=== PATIENT | female | born 1940 | race Caucasian/White ===

== ENCOUNTER 2020-07-08 08:37 | Outpatient (REF) | payer MEDICARE, SELFPAY ==
[2020-07-08 12:05] LABS: Alanine Aminotransferase 16 U/L (0-31); Albumin Level 4.3 g/dL (3.5-5.0); Alkaline Phosphatase 76 U/L (39-117); Anion Gap 11 (12-20); Aspartate Amino Transferase 19 U/L (5-31); Bilirubin Total 0.4 mg/dL (0.0-1.0); Blood Urea Nitrogen 22 mg/dL (9-16); Calcium 8.9 mg/dL (8.4-10.2); Carbon Dioxide 30 mmol/L (22-29); Chloride 105 mmol/L (96-108); Cholesterol 171 mg/dL; Estimated Glomerular Filt Rate 40; Glucose Fasting 97 mg/dL (60-99); HDL Cholesterol 52 mg/dL; LDL Cholesterol Calculated 87 mg/dl; Potassium 4.1 mmol/l (3.3-5.1); Sodium 142 mmol/L (135-145); Total Protein 6.6 g/dL (6.5-8.0); Triglycerides 164 mg/dL
[2020-07-08 12:09] LABS: Free T4 (Free Thyroxine) 1.09 ng/dL (0.71-1.85); Thyroid Stimulating Hormone 1.17 uIU/mL (0.32-4.0); Vitamin D 25-OH Total 47.1 ng/mL (>30)
== END 2020-07-08 08:38 | disposition home or self-care (01) ==
LOC: HO.HMGCLDS 08:37
PROVIDERS: PCP Internal Medicine; Visit Provider Internal Medicine
DX: I10 Essential (primary) hypertension (principal); E03.9 Hypothyroidism, unspecified; E78.5 Hyperlipidemia, unspecified; I44.2 Atrioventricular block, complete; Z78.0 Asymptomatic menopausal state; Z95.0 Presence of cardiac pacemaker
CPT/HCPCS: 80053; 80061; 82306; 84439; 84443

== ENCOUNTER 2020-11-14 09:02 | Outpatient (REF) | payer MEDICARE, SELFPAY ==
[2020-11-14 11:49] LABS: Alanine Aminotransferase 18 U/L (0-31); Albumin Level 4.2 g/dL (3.5-5.0); Alkaline Phosphatase 72 U/L (39-117); Anion Gap 16 (12-20); Aspartate Amino Transferase 22 U/L (5-31); Bilirubin Total 0.3 mg/dL (0.0-1.0); Blood Urea Nitrogen 20 mg/dL (9-16); Calcium 9.6 mg/dL (8.4-10.2); Carbon Dioxide 28 mmol/L (22-29); Chloride 104 mmol/L (96-108); Cholesterol 164 mg/dL; Estimated Glomerular Filt Rate 39; Glucose Fasting 99 mg/dL (60-99); HDL Cholesterol 62 mg/dL; LDL Cholesterol Calculated 79 mg/dl; Potassium 4.5 mmol/L (3.3-5.1); Sodium 143 mmol/L (135-145); Triglycerides 115 mg/dL
[2020-11-14 12:15] LABS: Free T4 (Free Thyroxine) 1.09 ng/dL (0.71-1.85); Thyroid Stimulating Hormone 0.54 uIU/mL (0.32-4.0); Vitamin D 25-OH Total 44.8 ng/mL (>30)
== END 2020-11-14 09:03 | disposition home or self-care (01) ==
LOC: HO.HMGCLDS 09:02
PROVIDERS: PCP Internal Medicine; Visit Provider Internal Medicine
DX: E03.9 Hypothyroidism, unspecified (principal); I10 Essential (primary) hypertension; E78.5 Hyperlipidemia, unspecified; Z78.0 Asymptomatic menopausal state; Z86.79 Personal history of other diseases of the circulatory system
CPT/HCPCS: 36415; 80053; 80061; 82306; 84439; 84443

== ENCOUNTER → 2020-12-22 12:46 | Outpatient (BNVA) | payer MEDICARE, SELFPAY | PROVIDERS: PCP Internal Medicine; Referring Provider Internal Medicine; Visit Provider Internal Medicine | DX: I45.9 Conduction disorder, unspecified (principal); I10 Essential (primary) hypertension; E78.5 Hyperlipidemia, unspecified; Z79.899 Other long term (current) drug therapy | CPT/HCPCS: 93005; 99212 ==

== ENCOUNTER 2021-02-18 10:45 | Outpatient (REF) | payer MEDICARE, SELFPAY | END 2021-02-18 10:46 | disposition home or self-care (01) | LOC: HO.LAB 10:45 | PROVIDERS: Visit Provider Nurse Practitioner Family | DX: N39.0 Urinary tract infection, site not specified (principal) | CPT/HCPCS: 87086; 87088; 87186 ==

== ENCOUNTER 2021-05-13 08:21 | Outpatient (REF) | payer MEDICARE, SELFPAY ==
[2021-05-13 11:21] LABS: MANUAL DIFF FLAG NO
[2021-05-13 11:30] LABS: Basophils Percent Auto 0.5 % (0-2); Eosinophils Absolute Auto 0.2 X10*3/uL (0.0-0.4); Eosinophils Percent Auto 2.8 % (0-4); Hematocrit 35.3 % (37-47); Hemoglobin 11.7 g/dl (12.0-16.0); Imm Gran Abs Auto 0.01 X10*3/uL (0.00-0.03); Imm Gran Pct Auto 0.2 % (0.0-0.4); Lymphocytes Absolute Auto 1.9 X10*3/uL (1.2-4.9); Lymphocytes Percent Auto 31.4 % (20-40); Mean Corpuscular HGB Conc 33.1 g/dl (31.0-35.0); Mean Corpuscular Hemoglobin 31.2 pg (27.0-33.0); Mean Corpuscular Volume 94.1 fL (80-98); Mean Platelet Volume 10.8 fL (9.4-12.3); Monocytes Absolute Auto 0.8 X10*3/uL (0.1-1.2); Monocytes Percent Auto 13.6 % (2-11); Neutrophils Absolute Auto 3.2 X10*3/uL (2.0-8.3); Neutrophils Percent Auto 51.5 % (45-73); Platelet Count 318 X10*3/uL (160-400); Red Blood Count 3.75 X10*6/uL (4.20-5.50); Red Cell Distribution Width 13.1 % (11.0-16.0); White Blood Count 6.1 X10*3/uL (4.8-10.8)
[2021-05-13 11:48] LABS: Alanine Aminotransferase 19 U/L (0-31); Anion Gap 13 (12-20); Aspartate Amino Transferase 20 U/L (5-31); Blood Urea Nitrogen 30 mg/dL (9-16); Calcium 9.2 mg/dL (8.4-10.2); Carbon Dioxide 25 mmol/L (22-29); Chloride 106 mmol/L (96-108); Cholesterol 161 mg/dL; Estimated Glomerular Filt Rate 38; Glucose Fasting 102 mg/dL (60-99); HDL Cholesterol 56 mg/dL; LDL Cholesterol Calculated 86 mg/dl; Sodium 140 mmol/L (135-145); Triglycerides 95 mg/dL
[2021-05-13 12:11] LABS: Free T4 (Free Thyroxine) 1.16 ng/dL (0.71-1.85); Thyroid Stimulating Hormone 0.44 uIU/mL (0.32-4.0); Vitamin D 25-OH Total 48.9 ng/mL (>30)
== END 2021-05-13 08:22 | disposition home or self-care (01) ==
LOC: HO.HMGCLDS 08:21
PROVIDERS: PCP Internal Medicine; Visit Provider Internal Medicine
DX: I12.9 Hypertensive chronic kidney disease with stage 1 through stage 4 chronic kidney disease, or unspecified chronic kidney disease (principal); N18.9 Chronic kidney disease, unspecified; E03.9 Hypothyroidism, unspecified; E78.5 Hyperlipidemia, unspecified; Z78.0 Asymptomatic menopausal state
CPT/HCPCS: 36415; 80048; 80061; 82306; 84439; 84443; 84450; 84460; 85025

== ENCOUNTER 2021-05-20 11:43 | Outpatient (REF) | payer MEDICARE, SELFPAY ==
[2021-05-20 14:11] LABS: Iron 107 mcg/dL (30-160); Percent Iron Saturation 34 % (15-50); Total Iron Binding Capacity 313 mcg/dL (228-428); Unsaturated Iron Binding 206 ug/dL
[2021-05-20 15:32] LABS: Ferritin 101 ng/mL (10-250)
== END 2021-05-20 11:44 | disposition home or self-care (01) ==
LOC: HO.HMGCLDS 11:43
PROVIDERS: PCP Internal Medicine; Visit Provider Internal Medicine
DX: D64.9 Anemia, unspecified (principal)
CPT/HCPCS: 36415; 82728; 83540

== ENCOUNTER 2021-05-26 | Outpatient (REF) | payer MEDICARE, SELFPAY ==
[2021-05-27 14:14] LABS: FIT Int Ctl YES; FIT1 NEGATIVE (NEGATIVE); FIT2 NEGATIVE (NEGATIVE)
== END 2021-05-26 00:01 | disposition home or self-care (01) ==
LOC: HO.LNP
PROVIDERS: Visit Provider Internal Medicine
DX: Z12.11 Encounter for screening for malignant neoplasm of colon (principal); Z12.12 Encounter for screening for malignant neoplasm of rectum; D64.9 Anemia, unspecified
CPT/HCPCS: 82274

== ENCOUNTER 2021-11-13 12:41 | Outpatient (REF) | payer MEDICARE, SELFPAY ==
[2021-11-13 14:05] LABS: MANUAL DIFF FLAG NO
[2021-11-13 14:14] LABS: Basophils Absolute Auto 0.1 X10*3/uL (0.0-0.2); Basophils Percent Auto 0.6 % (0-2); Eosinophils Absolute Auto 0.2 X10*3/uL (0.0-0.4); Eosinophils Percent Auto 1.6 % (0-4); Hematocrit 39.4 % (37.0-47.0); Hemoglobin 12.6 g/dl (12.0-16.0); Imm Gran Abs Auto 0.03 X10*3/uL (0.00-0.03); Imm Gran Pct Auto 0.3 % (0.0-0.4); Lymphocytes Absolute Auto 2.1 X10*3/uL (1.2-4.9); Lymphocytes Percent Auto 22.3 % (20-40); Mean Corpuscular Hemoglobin 30.5 pg (27.0-33.0); Mean Corpuscular Volume 95.4 fL (80.0-98.0); Mean Platelet Volume 10.4 fL (9.4-12.3); Monocytes Absolute Auto 1.1 X10*3/uL (0.1-1.2); Monocytes Percent Auto 12.2 % (2-11); Neutrophils Absolute Auto 5.9 x10*3/uL (2.0-8.3); Platelet Count 324 X10*3/uL (160-400); Red Blood Count 4.13 X10*6/uL (4.20-5.50); Red Cell Distribution Width 12.9 % (11.0-16.0); White Blood Count 9.3 X10*3/uL (4.8-10.8)
[2021-11-13 14:46] LABS: Anion Gap 16 (12-20); Blood Urea Nitrogen 28 mg/dL (9-16); Calcium 9.9 mg/dL (8.4-10.2); Carbon Dioxide 26 mmol/L (22-29); Chloride 104 mmol/L (96-108); Estimated Glomerular Filt Rate 38; Glucose Random 113 mg/dL (60-115); Potassium 4.7 mmol/L (3.3-5.1); Sodium 141 mmol/L (135-145)
[2021-11-13 15:10] LABS: TSH reflex Free T4 0.51 uIU/mL (0.32-4.0)
== END 2021-11-13 12:42 | disposition home or self-care (01) ==
LOC: HO.LAB 12:41
PROVIDERS: PCP Internal Medicine; Referring Provider Internal Medicine; Visit Provider Nurse Practitioner Family
DX: I48.0 Paroxysmal atrial fibrillation (principal); I10 Essential (primary) hypertension; Z86.79 Personal history of other diseases of the circulatory system; Z95.0 Presence of cardiac pacemaker
CPT/HCPCS: 36415; 80048; 84443; 85025; 99212

== ENCOUNTER → 2021-12-09 14:54 | Outpatient (REF) | payer MEDICARE, SELFPAY ==
--- NOTE | 2021-12-09 14:56 | CA_ITS ---
Transthoracic Echocardiogram Patient (Last, First, Middle): Mita Zapien T Gender: Female Date of : 1940 Age: 81 Procedure Date: 12/09/2021 Procedure Type: Transthoracic Echocardiogram Location: OP Height: 157.48 cm Weight: 106.6 kg BSA: 2.05 m2 Heart Rate: bpm BP: 140 / 70 mmHg Supervisor Taping: YR/TO Referring MD: Debora Morgan ANALYTICAL MANAGER-[employer] Machine Operator: Cruz Burdick MD Symptoms: I48.0 - Paroxysmal atrial fibrillation Study Quality: Fair ECG Rhythm: Ventriculary paced rhythm Conclusions: - 1. Normal LV systolic function with impaired relaxation filling pattern 2. Mildly dilated left atrium 3. Trivial aortic regurgitation 4. Normal RV systolic pressure 5. No gross pericardial effusion Findings Left Ventricle Normal left ventricular size, thickness, and systolic function. The visually estimated ejection fraction is between 60-65%. There is paradoxical septal motion consistent with a right ventricular pacemaker. Spectral Doppler is indicative of an impaired relaxation filling pattern. E/E prime ratio is between 8 and 15 consistent with indeterminate filling pressures. Right Ventricle Normal right ventricular cavity size and systolic function. Atria The left atrium is mildly dilated. There is no evidence of interatrial shunt. The right atrium is normal in size. Aortic Valve The aortic valve was not well visualized. There is no aortic valve stenosis. There is trace (trivial) aortic valve regurgitation. Mitral Valve There is mild anterior and posterior mitral leaflet thickening. There is trace mitral valve regurgitation. There is no mitral valve stenosis. Pulmonic Valve The pulmonic valve is likely normal. There is trace to mild pulmonic valve regurgitation. Tricuspid Valve There is mild tricuspid valve regurgitation. The right ventricular systolic pressure is normal. Normal right atrial pressure. There is no evidence of pulmonary hypertension. Great Vessels All visible segments of the aorta are normal in size. The pulmonary artery was not well visualized. Venous The inferior vena cava is normal in size and collapses greater than 50% with inspiration. Pericardium/Pleural There is no evidence of pericardial effusion. Measurements 2D Linear Measurements IVSd: 0.98 0.6-0.9/0.6-1.0 cm LVIDd: 4.82 3.9-5.3/4.2-5.9 cm LVIDd Index: 2.35 2.4-3.2/2.2-3.1 cm/m2 LVIDs: 2.84 2.0-3.6 cm LVPWd: 0.93 0.7-1.1 cm LA Diam: 3.70 2.7-3.8/3.0-4.0 cm LAIDs Index: 1.80 1.5-2.3 cm/m2 LV Mass: 199.85 67-162/88-224 g LV Mass Index: 97.49 43-95/49-115 g/m2 LVOT Diam: 2.00 3.0+(-)1.3 cm 2D Systolic Function EF 4C: 64.50 >55% EF 2C: 69.50 >55% EF BiP: 66.00 >55% Mitral Valve MV Pk E: 0.68 MV PK A: 0.86 MV Decel Time: 232.00 E/A: 0.80 E'Lateral: 7.72 E'Medial: 5.87 E/E' Med: 11.60 E/E' Lat: 8.80 PHT: 68.00 MVA PHT: 3.24 Decel Terry: 2.94 Aortic Valve AoV Pk Lauri: 2.11 AoV Mn Lauri: 1.37 AoV VTI: 0.49 AoV Pk Grad: 18.00 Aov Mn Grad: 9.00 NINFA Cont.VTI: 1.72 LVOT LVOT Pk Lauri: 1.05 LVOT Mn Lauri: 0.77 LVOT VTI: 0.27 LVOT Pk Grad: 4.00 LVOT Mn Grad: 3.00 LVOT Diam: 2.00 LVOT Area: 3.14 Diastolic Function MV Pk E: 0.68 MV Pk A: 0.86 E/A: 0.80 E'Medial: 5.87 E/E' Med: 11.60 E' Laterial: 7.72 E/E' Lat: 8.80 Right Ventricle TAPSE (mm): 20.70 TVS' Lauri: 9.03 Tricuspid Valve TR Pk Lauri: 2.87 TR Pk Grad: 33.00 RA Press: 3.00 RVSP: 36.00 Great Vessels Aorta Sinus of Valsalva: 3.05 2.0-3.[address] [place]: 2.77 1.7-3.4 cm Ao Asc: 3.50 2.1-3.4 cm Updated in Other Vendor System with Status of Final Cruz Burdick MD electronically signed on 12/10/2021 12:18:57 PM with status of Final
== END ==
LOC: HO.CARD 14:54
PROVIDERS: PCP Internal Medicine; Visit Provider Nurse Practitioner Family
DX: I48.0 Paroxysmal atrial fibrillation (principal)
CPT/HCPCS: 93306

== ENCOUNTER → 2021-12-21 12:36 | Outpatient (BNVA) | payer MEDICARE, SELFPAY | PROVIDERS: PCP Internal Medicine; Referring Provider Internal Medicine; Visit Provider Internal Medicine | DX: Z45.018 Encounter for adjustment and management of other part of cardiac pacemaker (principal); I45.9 Conduction disorder, unspecified; I48.0 Paroxysmal atrial fibrillation; I10 Essential (primary) hypertension; E78.5 Hyperlipidemia, unspecified | CPT/HCPCS: 93005; 93280; 99212 ==

== ENCOUNTER 2022-03-07 17:19 | Emergency (ER) | payer MEDICARE, SELFPAY ==
[2022-03-07 17:52] VITALS: BP 188/72; PULSE 73; RESP 15; TEMP 36.9; O2SAT 97; BMI 43.9
== END 2022-03-07 19:31 | disposition left against medical advice (07) ==
PROVIDERS: Emergency Provider Emergency Medicine; PCP Internal Medicine
DX: M79.671 Pain in right foot (principal)
CPT/HCPCS: 99281; 99282

== ENCOUNTER 2022-06-21 09:13 | Outpatient (REF) | payer MEDICARE, SELFPAY ==
[2022-06-21 12:05] LABS: Alanine Aminotransferase 16 U/L (0-31); Anion Gap 13 (12-20); Aspartate Amino Transferase 21 U/L (5-31); Blood Urea Nitrogen 26 mg/dL (9-16); Calcium 9.7 mg/dL (8.4-10.2); Carbon Dioxide 30 mmol/L (22-29); Chloride 104 mmol/L (96-108); Cholesterol 166 mg/dL; Estimated Glomerular Filt Rate 37; Glucose Fasting 105 mg/dL (60-99); HDL Cholesterol 56 mg/dL; LDL Cholesterol Calculated 87 mg/dl; Potassium 4.3 mmol/L (3.3-5.1); Sodium 143 mmol/L (135-145); Triglycerides 118 mg/dL
[2022-06-21 12:29] LABS: Free T4 (Free Thyroxine) 1.19 ng/dL (0.71-1.85); Thyroid Stimulating Hormone 0.84 uIU/mL (0.32-4.0); Vitamin D 25-OH Total 57.9 ng/mL (>30)
== END 2022-06-21 09:14 | disposition home or self-care (01) ==
LOC: HO.HMGCLDS 09:13
PROVIDERS: PCP Internal Medicine; Visit Provider Internal Medicine
DX: E03.9 Hypothyroidism, unspecified (principal); E78.5 Hyperlipidemia, unspecified; I12.9 Hypertensive chronic kidney disease with stage 1 through stage 4 chronic kidney disease, or unspecified chronic kidney disease; N18.9 Chronic kidney disease, unspecified
CPT/HCPCS: 36415; 80048; 80061; 82306; 84439; 84443; 84450; 84460

== ENCOUNTER → 2022-12-20 12:19 | Outpatient (BNVA) | payer MEDICARE, SELFPAY | PROVIDERS: PCP Internal Medicine; Referring Provider Internal Medicine; Visit Provider Internal Medicine | DX: Z45.018 Encounter for adjustment and management of other part of cardiac pacemaker (principal); I48.0 Paroxysmal atrial fibrillation; I45.9 Conduction disorder, unspecified; I10 Essential (primary) hypertension; E78.5 Hyperlipidemia, unspecified | CPT/HCPCS: 93005; 93280; 99212 ==

== ENCOUNTER → 2023-01-07 13:59 | Outpatient (BNVA) | payer MEDICARE, SELFPAY | PROVIDERS: PCP Internal Medicine; Visit Provider Internal Medicine ==

== ENCOUNTER → 2023-05-03 23:59 | Outpatient (BNV) | payer MEDICARE, SELFPAY ==
--- NOTE | 2023-05-07 14:21 | MHC.OFFVIS ---
Intake Intake Visit Reasons: Remote Device Check- [facility] Allergies amlodipine [From NORVASC] Allergy (Unknown, Verified 12/20/22 12:43) UNK amoxicillin [AMOXICILLIN] Allergy (Unknown, Verified 12/20/22 12:43) RASH, hives, rash latex [LATEX] Allergy (Unknown, Verified 12/20/22 12:43) RASH lisinopril Adverse Reaction (Unknown, Verified 12/20/22 12:43) cough Minoxidil Adverse Reaction (Unknown, Uncoded 12/20/22 12:43) hair growth [facility] Medical History (Updated 06/29/22 @ 01:33 by Shirlene Clark MD) History of gout Impaired fasting glucose Anemia CKD (chronic kidney disease) Acquired hypothyroidism History of complete heart block Essential hypertension Dyslipidemia Surgical History S/P placement of cardiac pacemaker Family History Father Substance use disorder Mother No problems noted. Social History (Updated 12/20/22 @ 12:44 by Fatemeh Cassidy) Housing: Apartment Alcohol intake: current Alcohol intake frequency: holidays/special occasions only Alcohol type: wine Patient Tobacco Use Status: Never used Tobacco e-Cigarette/Vaping Use: Never Used Current occupational status: retired Cognitive needs: No Hearing needs: No Vision needs: No Office Procedures Cardiac Device Check Cardiac Device Check Details: Date of service- 05/03/2023 ; Battery life >6 years; normal lead parameters; AP 78%; DIRECTOR PARK >99%; no significant arrhythmias. Overall normal device function. [id number] Cardiac Device Interrogation, pacemaker Procedure code (CPT) selection complete Assessment & Plan Assessment & Plan (1) Paroxysmal atrial fibrillation: Code(s): I48.0 - Paroxysmal atrial fibrillation (2) History of complete heart block: Code(s): Z86.79 - Personal history of other diseases of the circulatory system Coding Level of Care Code Procedure Only Diagnoses Paroxysmal atrial fibrillation I48.0 History of complete heart block Z86.79 CPT Codes Cardiac Device Check - Cardiac Device 12: [id number] Cardiac Device Interrogation, pacemaker ([id number])
== END ==
PROVIDERS: PCP Internal Medicine; Visit Provider Internal Medicine
DX: I48.0 Paroxysmal atrial fibrillation (principal); Z95.0 Presence of cardiac pacemaker
CPT/HCPCS: 93294

== ENCOUNTER 2023-06-15 09:14 | Outpatient (REF) | payer MEDICARE, SELFPAY ==
[2023-06-15 11:31] LABS: MANUAL DIFF FLAG NO
[2023-06-15 11:37] LABS: Basophils Absolute Auto 0.1 X10*3/uL (0.0-0.2); Basophils Percent Auto 0.7 % (0-2); Eosinophils Absolute Auto 0.4 X10*3/uL (0.0-0.4); Hematocrit 39.6 % (37.0-47.0); Hemoglobin 12.9 g/dl (12.0-16.0); Imm Gran Abs Auto 0.01 X10*3/uL (0.00-0.03); Imm Gran Pct Auto 0.1 % (0.0-0.4); Lymphocytes Absolute Auto 1.7 X10*3/uL (1.2-4.9); Lymphocytes Percent Auto 23.9 % (20-40); Mean Corpuscular HGB Conc 32.6 g/dl (31.0-35.0); Mean Corpuscular Volume 95.2 fL (80.0-98.0); Monocytes Percent Auto 13.9 % (2-11); Neutrophils Absolute Auto 4.1 x10*3/uL (2.0-8.3); Neutrophils Percent Auto 56.4 % (45-73); Platelet Count 323 X10*3/uL (160-400); Red Blood Count 4.16 X10*6/uL (4.20-5.50); Red Cell Distribution Width 13.2 % (11.0-16.0); White Blood Count 7.2 X10*3/uL (4.8-10.8)
[2023-06-15 12:49] LABS: Alanine Aminotransferase 18 U/L (0-31); Anion Gap 14 (12-20); Aspartate Amino Transferase 22 U/L (5-31); Blood Urea Nitrogen 24 mg/dL (9-16); Calcium 9.8 mg/dL (8.4-10.2); Carbon Dioxide 25 mmol/L (22-29); Chloride 106 mmol/L (96-108); Cholesterol 174 mg/dL (<200); Estimated Glomerular Filt Rate 43; Glucose Fasting 107 mg/dL (60-99); HDL Cholesterol 51 mg/dL (>40); LDL Cholesterol Calculated 94 mg/dL (<100); Potassium 3.8 mmol/L (3.3-5.1); Sodium 141 mmol/L (135-145); Triglycerides 146 mg/dL (<150); Uric Acid 7.8 mg/dL (2.4-5.7)
[2023-06-15 12:50] LABS: Free T4 (Free Thyroxine) 0.97 ng/dL (0.71-1.85); Thyroid Stimulating Hormone 1.57 uIU/mL (0.32-4.0); Vitamin D 25-OH Total 75.6 ng/mL (>30)
== END 2023-06-15 09:15 | disposition home or self-care (01) ==
LOC: HO.HMGCLDS 09:14
PROVIDERS: PCP Internal Medicine; Visit Provider Internal Medicine
DX: I12.9 Hypertensive chronic kidney disease with stage 1 through stage 4 chronic kidney disease, or unspecified chronic kidney disease (principal); N18.9 Chronic kidney disease, unspecified; I48.0 Paroxysmal atrial fibrillation; M10.9 Gout, unspecified; R73.01 Impaired fasting glucose; D64.9 Anemia, unspecified; E78.5 Hyperlipidemia, unspecified
CPT/HCPCS: 36415; 80048; 80061; 82306; 84439; 84443; 84450; 84460; 84550; 85025

== ENCOUNTER 2023-06-15 09:30 | Outpatient (AMB) | payer MEDICARE, SELFPAY ==
[2023-06-15 09:59] VITALS: BP 130/70; PULSE 73; TEMP 36.6; O2SAT 98; BMI 41.2
--- NOTE | 2023-06-15 09:59 | MHC.OFFWIV ---
Intake Vital Signs 06/15/23 09:59 Height 5 ft 2 in Weight 225 lb 4 oz BMI 41.2 BP 130/70 Blood Pressure Location Lt brachial Position Sitting Pulse 73 Pulse Source Pulse Oximeter Temp 97.9 F Temp Source Temporal Artery Scan Pulse Oximetry (%) 98 Oxygen Delivery Method Room Air Intake Visit Reasons: EST/headaches post sinus infection(lobby) Intake Note: pt is here for c/o headaches post infection Patient Tobacco Use Status: Never used Tobacco Allergies amlodipine [From NORVASC] Allergy (Unknown, Verified 06/15/23 10:47) UNK amoxicillin [AMOXICILLIN] Allergy (Unknown, Verified 06/15/23 10:47) RASH, hives, rash latex [LATEX] Allergy (Unknown, Verified 06/15/23 10:47) RASH lisinopril Adverse Reaction (Unknown, Verified 06/15/23 10:47) cough Minoxidil Adverse Reaction (Unknown, Uncoded 12/20/22 12:43) hair growth Medication List - Last Reconciled 06/15/23 by Bev Mejia, 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- apixaban (Eliquis) 5 mg PO BID 90 days atenolol 100 mg PO DAILY cholecalciferol (vitamin D3) 50 mcg PO DAILY furosemide 40 mg PO DAILY levothyroxine 88 mcg PO QAM loratadine (Claritin) 10 mg PO DAILY PRN pysfmxph-tpd-fmxq-FA-vit K-lut 8 mg iron-400 mcg-50 mcg (Centrum Silver Women) 1 tab PO DAILY simvastatin 40 mg PO QPM valsartan 320 mg PO DAILY vitamins A,C,A-qess-esujrf 4,296 mcg-226 mg-90 mg (PreserVision AREDS) 1 cap PO BID Do you need a note to return to daycare/school/sports/work: Yes HPI HPI Comments History of Present Illness Details HERE TODAY W C/O FRONTAL THROBBING HEADACHE THAT STARTED 06/08/23. REPORTS URI SX 2 WEEKS AGO THAT RESOLVED W/O INTERVENTION. THEN 06/08/23 WHILE WATCHING TV SHE SAW SQUIGGLY LINES IN HER VISION. SHE CLOSED HER EYES AND THIS RESOLVED THE ISSUE WITHIN SECONDS. HOWEVER THIS IS WHEN SHE DEVELOPED A FRONTAL HEADACHE. THIS ONLY LAST A SHORT TIME. THIS SIMILIAR THING HAPPENED AGAIN 06/10, 06/11 AND 06/12. SHE HAS USED APAP TO TX THE HEADACHE W + RELIEF. REPORTS NASAL CONGESTION, THICK PURULENT DRAINAGE. DENIES FEVER, CHILLS, VISUAL LOSS, SOB, CHEST PAIN. SHE DID CALL HER [facility] GIVEN THE VISUAL COMPLAINTS. LAST EYE EXAM 05/24/23. [facility] ADVISED TO COME TO URGENT CARE FIRST AND FU WITH HER AFTER. DENIES RED FLAG NEURO SX. TODAY SHE IS FEELING FINE W/O HEADACHE OR VISUAL DISTURBANCES. [facility] Medical History (Updated 06/15/23 @ 10:47 by Bev Mejia, [facility]) History of gout Impaired fasting glucose Anemia CKD (chronic kidney disease) Acquired hypothyroidism History of complete heart block Essential hypertension Dyslipidemia Surgical History S/P placement of cardiac pacemaker Family History Father Substance use disorder Mother No problems noted. Social History (Updated 12/20/22 @ 12:44 by Fatemeh Cassidy) Housing: Apartment Alcohol intake: current Alcohol intake frequency: holidays/special occasions only Alcohol type: wine Patient Tobacco Use Status: Never used Tobacco e-Cigarette/Vaping Use: Never Used Current occupational status: retired Cognitive needs: No Hearing needs: No Vision needs: No Review of Systems Const All systems reviewed & are unremarkable except as noted in HPI and below Physical Exam Vital Signs: Last Vital Signs Temp 97.9 F 06/15/23 09:59 Pulse 73 06/15/23 09:59 BP 130/70 06/15/23 09:59 Pulse Ox 98 06/15/23 09:59 Oxygen Delivery Method Room Air 06/15/23 09:59 BMI result Body Mass Index 41.2 Const Other: AWAKE, ALERT, ORIENTED, NAD ATRAUMATIC, NORMOCEPHALIC PERRLA, EOMI. NO PHOTOPHOBIA. WEARING GLASSES. TM INTACT AND CLEAR ON LEFT. UNABLE TO SEE TM ON R DUE TO NONOBS CERUMEN IN EAC TURBINATES PALE, EDEMATOUS WITH SCANT MUCOID DISCHARGE. SINUSES NONTENDER TO PALP PHARYNX PINK. + PND. NO EXUDATE. NECK FULL ROM. IRREGULARLY IRREGULAR RYTHYM LS CTAB NEURO EXAM GROSSLY INTACT Assessment & Plan Assessment & Plan (1) Sinusitis: Code(s): J32.9 - Chronic sinusitis, unspecified Plan: WILL TX TODAY FOR SUSPECTED SINUSITIS USING DOXY GIVEN HER PCN ALLERGY & USE OF ELIQUIS. SHE SHOULD TAKE DIRECTED. I HAVE ADVISED HER TO CALL [facility] AFTER THIS APPT TO UPDATE AND ENCOURAGED APPT IF [facility] THOUGHT NECESSARY I CANNOT DIRECTLY CORRELATE HER VISUAL SX WITH HER SINUSITIS. EDU ON RED FLAG NEURO SX TO MONITOR FOR AND ENCOURAGED TO SEEK ED LEVEL OF CARE PRN. (2) Visual aura: Code(s): H53.9 - Unspecified visual disturbance Medications: New doxycycline hyclate 100 mg PO BID 7 days 14 caps 0RF Coding Level of Care Code Est Pt Level 4 (99907) Diagnoses Sinusitis J32.9 Visual aura H53.9
== END 2023-06-15 11:35 | disposition home or self-care (01) ==
PROVIDERS: PCP Internal Medicine; Visit Provider Nurse Practitioner Family
DX: J32.9 Chronic sinusitis, unspecified (principal); H53.9 Unspecified visual disturbance
CPT/HCPCS: 99214

== ENCOUNTER 2023-07-04 12:11 | Outpatient (AMB) | payer MEDICARE, SELFPAY ==
[2023-07-04 12:21] VITALS: BP 130/72; PULSE 78; O2SAT 98; BMI 41.1
--- NOTE | 2023-07-04 12:21 | A.OFFPC_ITS ---
<Statement entered by Shirlene Clark MD - 12/26/24 15:24> This note has been administratively?closed. 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 Required: No Accompanied by: Self / Same As Patient Allergies amlodipine [From NORVASC] Allergy (Unknown, Verified 07/04/23 12:46) UNK amoxicillin [AMOXICILLIN] Allergy (Unknown, Verified 07/04/23 12:46) RASH, hives, rash latex [LATEX] Allergy (Unknown, Verified 07/04/23 12:46) RASH lisinopril Adverse Reaction (Unknown, Verified 07/04/23 12:46) cough Minoxidil Adverse Reaction (Unknown, Uncoded 07/04/23 12:46) hair growth Medication List - Last Reconciled 07/04/23 by Shirlene Clark MD apixaban (Eliquis) 5 mg PO BID 90 days atenolol 100 mg PO DAILY cholecalciferol (vitamin D3) 50 mcg PO DAILY furosemide 40 mg PO DAILY levothyroxine 88 mcg PO QAM loratadine (Claritin) 10 mg PO DAILY PRN qsxwncwo-adq-zkqe-FA-vit K-lut 8 mg iron-400 mcg-50 mcg (Centrum Silver Women) 1 tab PO DAILY simvastatin 40 mg PO QPM valsartan 320 mg PO DAILY vitamins A,C,J-onvv-jadgln 4,296 mcg-226 mg-90 mg (PreserVision AREDS) 1 cap PO BID Tobacco use date assessed: 07/04/23 Fall risk assessment: 1 Fall in past year Last assessed Fall Risk: 07/04/23 Dental Screening Dental Screen Date: 07/04/23 Did you have a dental visit in the last 12 months?: No Did you have a dental problem in the last 6 months where you did not have access to dental care?: No Was dental information given to patient?: Yes PFSH Medical History (Updated 07/04/23 @ 13:15 by Shirlene Clark MD) COVID-19 vaccination refused History of gout Impaired fasting glucose Anemia CKD (chronic kidney disease) Acquired hypothyroidism History of complete heart block Essential hypertension Dyslipidemia Surgical History S/P placement of cardiac pacemaker Family History Father Substance use disorder Mother No problems noted. Social History Housing: Apartment Alcohol intake: current Alcohol intake frequency: holidays/special occasions only Alcohol type: wine Patient Tobacco Use Status: Never used Tobacco e-Cigarette/Vaping Use: Never Used Current occupational status: retired Cognitive needs: No Hearing needs: No Vision needs: No Questionnaire PHQ-9 Over the last 2 weeks, how often have you been bothered by any of the following problems? 1. Little interest or pleasure in doing things: not at all 2. Feeling down, depressed, or hopeless: not at all 3. Trouble falling or staying asleep, or sleeping too much: not at all 4. Feeling tired or having little energy: not at all 5. Poor appetite or overeating: not at all 6. Feeling bad about yourself - or that you are a failure or have let yourself or your family down: not at all 7. Trouble concentrating on things, such as reading the newspaper or watching television: not at all 8. Moving or speaking so slowly that other people could have noticed. Or the opposite - being so fidgety or restless that you have been moving around a lot more than usual: not at all 9. Thoughts that you would be better off or of hurting yourself in some way: not at all Total score: 0 Depression Screening Interpretation: Negative Depression Screening Done: Yes 85063 - PHQ-9 Billing: Yes Source: Developed by Drs. Bennie Stock, Sherri Joshua, Vitaliy Vu and colleagues, with an educational casper from [employer]. Thrive Questionnaire Date Thrive assessed: 07/04/23 I am a: Patient What is your living situation today?: I have a steady place to live Within the past 12 months, did the food you bought not last and you didn't have the money to get more?: Never true Within the past 12 months, did you worry whether your food would run out before you got money to buy more?: Never true Do you have trouble paying for medicines?: No Do you have trouble getting transportation to medical appointments?: No Do you have trouble paying your heating and electricity bill?: No Do you have trouble taking care of your child, family member or friend?: No Do you have trouble with day-to-day activities such as bathing, preparing meals, shopping, managing finances, etc.?: No Are you currently unemployed and looking for a job?: No Are you interested in more education?: No Please select the resources that you would like help with: None Currently or been in a relationship where the following occur: no concerns reported MURRAY-7 AMB Questionnaire MURRAY-7 Date MURRAY - 7 assessed: 07/04/23 Feeling nervous, anxious, or on edge: 0 = Not at all Not being able to stop or control worryin = Not at all Worrying too much about different things: 0 = Not at all Trouble relaxin = Not at all Being so restless that it is hard to sit still: 0 = Not at all Becoming easily annoyed or irritable: 0 = Not at all Feeling afraid as if something awful might happen: 0 = Not at all Total MURRAY-7 score (0-4 normal; 5-9 mild; 10-14 moderate; 15-21 severe): 0 Source: Developed by Drs. Bennie Stock, Sherri Joshua, Vitaliy Vu and colleagues, with an educational casper from [employer]. MURRAY-7 Assessment Billing MURRAY-7 Assessment Tool: MURRAY-7 Assessment 46315 Review of Systems Eyes Details: sees [facility] Physical exam (Primary Care) Vital Signs: Last Vital Signs Pulse 78 07/04/23 12:21 BP 130/72 07/04/23 12:21 Pulse Ox 98 07/04/23 12:21 Oxygen Delivery Method Room Air 07/04/23 12:21 BMI result Body Mass Index 41.1 Tobacco/Smoking Status: Tobacco use Status Tobacco use date assessed 07/04/23 07/04/23 12:23 Patient Tobacco Use Status Never used Tobacco 07/04/23 12:23 e-Cigarette/Vaping Use Never Used 07/04/23 12:23 PHQ-9: PHQ-9 Score PHQ-9: Total score 0 07/04/23 12:29 Depression Screening Interpretation: Negative Thrive Assessment: Date of Thrive Assessment Date Thrive assessed 07/04/23 07/04/23 12:29 Currently or been in a relationship where the following occur: no concerns reported Const General: comfortable, no acute distress, alert and awake Orientation/consciousness: patient oriented x3 HENMT Head: Yes atraumatic Ears: hearing grossly normal bilaterally, TM's normal bilaterally and EAC's normal General nose exam: Normal external nose present and No nasal discharge present Eyes General: appearance normal, both eyes and all related structures Neck Other: Nonpalpable thyroid gland Neck: Yes full ROM, Yes no lymphadenopathy and Yes supple Resp Effort & Inspection: normal respiratory effort and able to speak in complete sentences Auscultation: clear to auscultation bilaterally Cardio Other: S1 and S2 present regular rate and rhythm GI Other: Normal bowel sounds, soft, nontender, no mass palpated General: Yes no CVA tenderness Back/Spine/Pelvis Back: no CVA tenderness and No back tenderness Skin General skin exam: no rashes or lesions noted Neuro General: patient oriented x3, gait normal, tone normal, moves all extremities, Normal light touch and pain sensation, no focal motor deficits and CN's II-XI intact bilaterally Extrem General: Yes full ROM, Yes no joint enlargement, Yes no clubbing, cyanosis or edema, Yes no calf tenderness and Yes normal gait Psych Appearance: grossly normal Mental Status: mental status grossly normal Speech and movement: Normal speech and movement present Affect: normal affect Attitude: cooperative Results Reviewed Results Reviewed: Name: Mita Zapien Age/Sex: 83/F [facility] 1940 [id number] [id number] Attend Dr: Shirlene Clark MD Re06/15/23 Status: DEP [facility] Disch: SPEC : [id number] MAREN: 06/15/23 STATUS: COMP REQ : [id number] RECD: 06/15/[address]: Shirlene Clark MD COMP: 06/15/23 ENTERED: 06/15/[address]: ORDERED: CBC Auto Diff Test Result Flag Reference Site WBC 7.2 4.8-10.8 X10*3/uL RBC 4.16 L 4.20-5.50 X10*6/uL HGB 12.9 12.0-16.0 g/dl HCT 39.6 37.0-47.0 % MCV 95.2 80.0-98.0 fL MCH 31.0 27.0-33.0 pg MCHC 32.6 31.0-35.0 g/dl RDW 13.2 11.0-16.0 % PLT 323 160-400 X10*3/uL Name: Mita Zapien Age/Sex: 83/F : 1940 Unit#: [id number] Attend Dr: Shirlene Clark MD Re06/15/23 Status: DEP REF Location: [facility] Disch: SPEC : [id number] MAREN: 06/15/23 STATUS: COMP REQ : [id number] RECD: 06/15/[address]: Shirlene Clark MD COMP: 06/15/23 ENTERED: 06/15/[address]: ORDERED: Met Prof Fast, Uric, AST, ALT, Lipid Panel, Vitamin D 25-OH, Free T4, TS Test Result Flag Reference Site Sodium 141 135-145 mmol/L Potassium 3.8 3.3-5.1 mmol/L CL 106 96-108 mmol/L CO2 25 22-29 mmol/L Gap 14 12-20 BUN 24 H 9-16 mg/dL Creat 1.19 0.5-1.4 mg/dL EGFR 43 NOTE: For -[place] individuals, multiply the result by 1.210. Chronic Kidney Disease: Estimated GFR < 60 mL/min/1.73m2 Severe Kidney Disease: Estimated GFR < 15 mL/min/1.73m2 FBS 107 H 60-99 mg/dL A fasting glucose from 100-125 mg/dl is considered impaired (pre-diabetes). Uric Acid 7.8 H 2.4-5.7 mg/dL CA 9.8 8.4-10.2 mg/dL AST (GOT) 22 5-31 U/L ALT (GPT) 18 0-31 U/L Triglyceride 146 <150 mg/dL Desirable Triglyceride: less than 150 mg/dL Borderline High Triglyceride 150-199 mg/dL High Triglyceride: 200-499 mg/dL Very High Triglyceride: greater than or equal to 5OO mg/dL Cholesterol 174 <200 mg/dL Desirable Cholesterol: less than 200 mg/dL Borderline High Cholesterol: 200-239 mg/dL High Cholesterol: greater than 239 mg/dL LDL Calculated 94 <100 mg/dL Desirable LDL: less than 100 mg/dL Near Optimal/Above Optimal LDL: 110-129 mg/dL Borderline High LDL: 130-159 mg/dL High LDL: 160-189 mg/dL Very High LDL: greater than or equal to 190 mg/dL HDL 51 >40 mg/dL Desirable HDL: greater than 40 mg/dL Note: This HDL assay may give artificially low results in patients with liver disease. Vit D 25-OH Tot 75.6 >30 ng/mL Health Based Reference Values* < 20 ng/mL Deficient 20-30 ng/mL Insufficient > 30 ng/mL Sufficient *Rachna STEWART. N Engl J Med. 2007;357:266-280 Care must be taken in interpreting Vitamin D results from different laboratories and methodologies. Published data demonstrated that results from patients undergoing hemodialysis may show a negative bias when tested with various automated 25-OH vitamin D assays when compared to LC-MS/MS. When testing samples from patients whose predominant form of Vitamin D is Vitamin D2, such as patients receiving Vitamin D2 supplementation, results that are subtherapeutic should be confirmed with another method such as LC-MS/MS. Free T4 0.97 0.71-1.85 ng/dL TSH 3rd Gen. 1.57 0.32-4.0 uIU/mL TSH 3rd Generation ([facility]) Assessment and Plan Assessment & Plan (1) Annual visit for general adult medical examination with abnormal findings: Code(s): Z00.01 - Encounter for general adult medical examination with abnormal findings (2) History of gout: Code(s): Z87.39 - Personal history of other diseases of the musculoskeletal system and connective tissue (3) Acquired hypothyroidism: Code(s): E03.9 - Hypothyroidism, unspecified (4) Essential hypertension: Code(s): I10 - Essential (primary) hypertension (5) Dyslipidemia: Code(s): E78.5 - Hyperlipidemia, unspecified (6) CKD (chronic kidney disease): Code(s): N18.9 - Chronic kidney disease, unspecified (7) Impaired fasting glucose: Code(s): R73.01 - Impaired fasting glucose (8) Paroxysmal atrial fibrillation: Code(s): I48.0 - Paroxysmal atrial fibrillation (9) COVID-19 vaccination refused: Code(s): Z28.21 - Immunization not carried out because of patient refusal (10) Refused influenza vaccine: Code(s): Z28.21 - Immunization not carried out because of patient refusal Orders: Orders Basic Metabolic Panel Fasting 12/19/23 E03.9 - Hypothyroidism, unspecified, E78.5 - Hyperlipidemia, unspecified, I10 - Essential (primary) hypertension, I 48.0 - Paroxysmal atrial fibrillation, N18.9 - Chronic kidney disease, unspecified, R73.01 - Impaired fasting glucose, Z00.01 - Encounter for general adult medical examination with abnormal findings, Z87.39 - Personal history of other diseases of the musculoskeletal system and connective tissue Alanine Aminotransferase 12/19/23 E03.9 - Hypothyroidism, unspecified, E78.5 - Hyperlipidemia, unspecified, I10 - Essential (primary) hypertension, I48.0 - Paroxysmal atrial fibrillation, N18.9 - Chronic kidney disease, unspecified, R73.01 - Impaired fasting glucose, Z00.01 - Encounter for general adult medical examination with abnormal findings, Z87.39 - Personal history of other diseases of the musculoskeletal system and connective tissue Aspartate Amino Transferase 12/19/23 E03.9 - Hypothyroidism, unspecified, E78.5 - Hyperlipidemia, unspecified, I10 - Essential (primary) hypertension, I48.0 - Paroxysmal atrial fibrillation, N18.9 - Chronic kidney disease, unspecified, R73.01 - Impaired fasting glucose, Z00.01 - Encounter for general adult medical examination with abnormal findings, Z87.39 - Personal history of other diseases of the musculoskeletal system and connective tissue Uric Acid 12/19/23 E03.9 - Hypothyroidism, unspecified, E78.5 - Hyperlipidemia, unspecified, I10 - Essential (primary) hypertension, I48.0 - Paroxysmal atrial fibrillation, N18.9 - Chronic kidney disease, unspecified, R73.01 - Impaired fasting glucose, Z00.01 - Encounter for general adult medical examination with abnormal findings, Z87.39 - Personal history of other diseases of the musculoskeletal system and connective tissue Thyroid Stimulating Hormone 12/19/23 E03.9 - Hypothyroidism, unspecified, E78.5 - Hyperlipidemia, unspecified, I10 - Essential (primary) hypertension, I48.0 - Paroxysmal atrial fibrillation, N18.9 - Chronic kidney disease, unspecified, R73.01 - Impaired fasting glucose, Z00.01 - Encounter for general adult medical examination with abnormal findings, Z87.39 - Personal history of other diseases of the musculoskeletal system and connective tissue Free T4 (Free Thyroxine) 12/19/23 E03.9 - Hypothyroidism, unspecified, E78.5 - Hyperlipidemia, unspecified, I10 - Essential (primary) hypertension, I48.0 - Paroxysmal atrial fibrillation, N18.9 - Chronic kidney disease, unspecified, R73.01 - Impaired fasting glucose, Z00.01 - Encounter for general adult medical examination with abnormal findings, Z87.39 - Personal history of other diseases of the musculoskeletal system and connective tissue Lipid Panel 12/19/23 E03.9 - Hypothyroidism, unspecified, E78.5 - Hyperlipidemia, unspecified, I10 - Essential (primary) hypertension, I48.0 - Paroxysmal atrial fibrillation, N18.9 - Chronic kidney disease, unspecified, R73.01 - Impaired fasting glucose, Z00.01 - Encounter for general adult medical examination with abnormal findings, Z87.39 - Personal history of other diseases of the musculoskeletal system and connective tissue Medications: New allopurinol 100 mg PO DAILY 90 tabs 1RF Coding Level of Care Code Est Pt Prev Care >65y(43563) Diagnoses Annual visit for general adult medical examination with abnormal findings Z00.01 History of gout Z87.39 Acquired hypothyroidism E03.9 Essential hypertension I10 Dyslipidemia E78.5 CKD (chronic kidney disease) N18.9 Impaired fasting glucose R73.01 Paroxysmal atrial fibrillation I48.0 COVID-19 vaccination refused Z28.21 Refused influenza vaccine Z28.21 Additional Codes MURRAY-7 Assessment Billing - MURRAY-7 Assessment Tool: MURRAY-7 Assessment 72717 ([id number])
== END 2023-07-04 13:22 | disposition home or self-care (01) ==
PROVIDERS: Visit Provider Internal Medicine
DX: Z00.01 Encounter for general adult medical examination with abnormal findings (principal); Z87.39 Personal history of other diseases of the musculoskeletal system and connective tissue; E03.9 Hypothyroidism, unspecified; I12.9 Hypertensive chronic kidney disease with stage 1 through stage 4 chronic kidney disease, or unspecified chronic kidney disease; E78.5 Hyperlipidemia, unspecified; N18.9 Chronic kidney disease, unspecified; R73.01 Impaired fasting glucose; I48.0 Paroxysmal atrial fibrillation; Z28.21 Immunization not carried out because of patient refusal
CPT/HCPCS: 99499

== ENCOUNTER 2023-07-22 09:20 | Outpatient (AMB) | payer MEDICARE, SELFPAY ==
--- NOTE | 2023-07-22 10:18 | AM.OFFWIN_ITS ---
Intake Vital Signs 07/22/23 10:23 Height 5 ft 2 in Weight 222 lb 3 oz BMI 40.6 BP 130/74 Blood Pressure Location Rt brachial Position Sitting Pulse 50 Pulse Source Pulse Oximeter Temp 96.4 F L Temp Source Temporal Artery Scan Pulse Oximetry (%) 99 Oxygen Delivery Method Room Air Intake Visit Reasons: EP, Right foot pain/swelling Intake Note: Pt is here c/o right foot pain and swelling. Pt states no falls or injuries. Patient Tobacco Use Status: Never used Tobacco Allergies amlodipine [From NORVASC] Allergy (Unknown, Verified 07/22/23 10:25) UNK amoxicillin [AMOXICILLIN] Allergy (Unknown, Verified 07/22/23 10:25) RASH, hives, rash latex [LATEX] Allergy (Unknown, Verified 07/22/23 10:25) RASH lisinopril Adverse Reaction (Unknown, Verified 07/22/23 10:25) cough Minoxidil Adverse Reaction (Unknown, Uncoded 07/22/23 10:25) hair growth HPI HPI Comments History of Present Illness Details This is an 83-year-old female who presents to the office today complaining of right great toe pain and swelling x4 days. Patient states she has a history of gout and she was recently started on allopurinol. She states that she was eating a lot of salty foods and had some alcoholic drinks over the holiday weekend. She reports she started to develop right great toe pain and swelling. She denies any trauma or injury. She denies any fevers or chills. She denies any redness streaking up her leg. [facility] Medical History (Updated 07/04/23 @ 13:15 by Shirlene Clark MD) COVID-19 vaccination refused History of gout Impaired fasting glucose Anemia CKD (chronic kidney disease) Acquired hypothyroidism History of complete heart block Essential hypertension Dyslipidemia Surgical History S/P placement of cardiac pacemaker Family History Father Substance use disorder Mother No problems noted. Social History Housing: Apartment Alcohol intake: current Alcohol intake frequency: holidays/special occasions only Alcohol type: wine Patient Tobacco Use Status: Never used Tobacco e-Cigarette/Vaping Use: Never Used Current occupational status: retired Cognitive needs: No Hearing needs: No Vision needs: No Review of Systems Const All systems reviewed & are unremarkable except as noted in HPI and below Reports no additional complaints Eyes Reports no additional complaints ENT Reports no additional complaints Card Reports no additional complaints Resp Reports no additional complaints GI Reports no additional complaints Reports no additional complaints Musc Reports no additional complaints Skin/Breast Reports system reviewed and no additional complaints, except as documented Neuro Reports no additional complaints Psych Reports no additional complaints Endo Reports no additional complaints Kennedy/Lymph Reports no additional complaints Aller/Immun Reports no additional complaints Physical Exam Vital Signs: Last Vital Signs Temp 96.4 F L 07/22/23 10:23 Pulse 50 07/22/23 10:23 BP 130/74 07/22/23 10:23 Pulse Ox 99 07/22/23 10:23 Oxygen Delivery Method Room Air 07/22/23 10:23 BMI result Body Mass Index 40.6 Const Other: Vital signs reviewed. Constitutional: Non-toxic appearing. No acute distress. Well-developed and well-nourished. HEENT: Normocephalic and atraumatic. Skin: There is erythema of the right 1st MTP joint. No lymphangitic streaking. No fluctuance or induration. No purulent drainage. Neck: Full and painless range of motion. No cervical lymphadenopathy. Cardio: Regular rate. No calf edema. No JVD. Pulmonary: No respiratory distress. No accessory muscle usage. Gastrointestinal: Soft, nontender, and nondistended in all 4 quadrants. Musculoskeletal: There is erythema, swelling, and tenderness to palpation of the right 1st MTP joint. Neuro: Alert and oriented x4. Cranial nerves 2-12 grossly intact. No focal deficits appreciated. Psych: Normal mood and affect. Assessment & Plan Assessment & Plan (1) Acute gouty arthritis: Code(s): M10.9 - Gout, unspecified Plan: This is an 83-year-old female who presented to the office complaining of atraumatic right great toe pain and swelling x4 days consistent with prior history of gouty arthritis. There is no evidence of cellulitis. She denies any trauma or injury so low suspicion for fraction/dislocation. History and physical most consistent with acute gouty arthritis of the right 1st MTP joint. Patient sent home on a prednisone taper. Patient advised to follow-up here or proceed to the emergency room if she were to develop persistent or worsening symptoms. Patient verbalizes her understanding and she is in agreement with the plan. Medications: New prednisone take 4 tablets daily x2 days followed by 3 tablets daily x2 days followed by 2 tablets daily x2 days followed by 1 tablet daily x2 days followed by 1/2 tablet daily x2 days 10 mg PO DIRECTED 21 tabs 0RF Coding Level of Care Code Est Pt Level 3 (15950) Diagnoses Acute gouty arthritis M10.9
[2023-07-22 10:23] VITALS: BP 130/74; PULSE 50; TEMP 35.8; O2SAT 99; BMI 40.6
== END 2023-07-22 11:12 | disposition home or self-care (01) ==
PROVIDERS: PCP Internal Medicine; Visit Provider Physician Assistant Medical
DX: M10.9 Gout, unspecified (principal)
CPT/HCPCS: 99213

== ENCOUNTER → 2023-08-02 23:59 | Outpatient (BNV) | payer MEDICARE, SELFPAY ==
--- NOTE | 2023-08-02 18:24 | A.OFFVIS_ITS ---
Intake Intake Visit Reasons: Remote Device Check- [facility] Allergies amlodipine [From NORVASC] Allergy (Unknown, Verified 07/22/23 10:25) UNK amoxicillin [AMOXICILLIN] Allergy (Unknown, Verified 07/22/23 10:25) RASH, hives, rash latex [LATEX] Allergy (Unknown, Verified 07/22/23 10:25) RASH lisinopril Adverse Reaction (Unknown, Verified 07/22/23 10:25) cough Minoxidil Adverse Reaction (Unknown, Uncoded 07/22/23 10:25) hair growth [facility] Medical History (Updated 08/02/23 @ 18:25 by Paulie Dailey MD) COVID-19 vaccination refused History of gout Impaired fasting glucose Anemia CKD (chronic kidney disease) Acquired hypothyroidism History of complete heart block Essential hypertension Dyslipidemia Surgical History S/P placement of cardiac pacemaker Family History Father Substance use disorder Mother No problems noted. Social History Housing: Apartment Alcohol intake: current Alcohol intake frequency: holidays/special occasions only Alcohol type: wine Patient Tobacco Use Status: Never used Tobacco e-Cigarette/Vaping Use: Never Used Current occupational status: retired Cognitive needs: No Hearing needs: No Vision needs: No Office Procedures Cardiac Device Check Cardiac Device Check Details: Date of service- 08/02/2023 ; Battery life >5 years; normal lead parameters; AP 81%; [employer] >99%; no significant arrhythmias. Overall normal device function. [id number] Cardiac Device Interrogation, pacemaker Procedure code (CPT) selection complete Assessment & Plan Assessment & Plan (1) PAF (paroxysmal atrial fibrillation): Code(s): I48.0 - Paroxysmal atrial fibrillation (2) Heart block: Code(s): I45.9 - Conduction disorder, unspecified Plan x Coding Level of Care Code Procedure Only Diagnoses PAF (paroxysmal atrial fibrillation) I48.0 Heart block I45.9 CPT Codes Cardiac Device Check - Cardiac Device 12: [id number] Cardiac Device Interrogation, pacemaker ([id number])
== END ==
PROVIDERS: PCP Internal Medicine; Visit Provider Internal Medicine
DX: I48.0 Paroxysmal atrial fibrillation (principal); Z95.0 Presence of cardiac pacemaker
CPT/HCPCS: 93294

== ENCOUNTER → 2023-11-01 23:59 | Outpatient (BNV) | payer MEDICARE, SELFPAY ==
--- NOTE | 2023-11-02 15:22 | A.OFFVIS_ITS ---
Intake Intake Visit Reasons: Remote Device Check- [facility] Allergies amlodipine [From NORVASC] Allergy (Unknown, Verified 07/22/23 10:25) UNK amoxicillin [AMOXICILLIN] Allergy (Unknown, Verified 07/22/23 10:25) RASH, hives, rash latex [LATEX] Allergy (Unknown, Verified 07/22/23 10:25) RASH lisinopril Adverse Reaction (Unknown, Verified 07/22/23 10:25) cough Minoxidil Adverse Reaction (Unknown, Uncoded 07/22/23 10:25) hair growth [facility] Medical History (Updated 08/02/23 @ 18:25 by Paulie Dailey MD) COVID-19 vaccination refused History of gout Impaired fasting glucose Anemia CKD (chronic kidney disease) Acquired hypothyroidism History of complete heart block Essential hypertension Dyslipidemia Surgical History S/P placement of cardiac pacemaker Family History Father Substance use disorder Mother No problems noted. 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 Overall normal device function. [id number] Cardiac Device Interrogation, pacemaker Procedure code (CPT) selection complete Assessment & Plan Assessment & Plan (1) Paroxysmal atrial fibrillation: Code(s): I48.0 - Paroxysmal atrial fibrillation Plan x Coding Level of Care Code Procedure Only Diagnoses Paroxysmal atrial fibrillation I48.0 CPT Codes Cardiac Device Check - Cardiac Device 12: [id number]-[id number] Cardiac Device Interrogation, pacemaker ([id number])
== END ==
PROVIDERS: PCP Internal Medicine; Visit Provider Internal Medicine
DX: I48.0 Paroxysmal atrial fibrillation (principal); Z95.0 Presence of cardiac pacemaker
CPT/HCPCS: 93294

== ENCOUNTER 2023-12-05 09:03 | Outpatient (REF) | payer MEDICARE, SELFPAY ==
[2023-12-05 10:59] LABS: Alanine Aminotransferase 15 U/L (0-31); Anion Gap 11 (12-20); Aspartate Amino Transferase 21 U/L (5-31); Blood Urea Nitrogen 32 mg/dL (9-16); Calcium 10.3 mg/dL (8.4-10.2); Carbon Dioxide 27 mmol/L (22-29); Chloride 105 mmol/L (96-108); Cholesterol 187 mg/dL (<200); Estimated Glomerular Filt Rate 39; Glucose Fasting 98 mg/dL (60-99); HDL Cholesterol 62 mg/dL (>40); LDL Cholesterol Calculated 105 mg/dL (<100); Potassium 3.6 mmol/L (3.3-5.1); Sodium 139 mmol/L (135-145); Triglycerides 103 mg/dL (<150); Uric Acid 6.3 mg/dL (2.4-5.7)
[2023-12-05 11:17] LABS: Free T4 (Free Thyroxine) 1.05 ng/dL (0.71-1.85); Thyroid Stimulating Hormone 1.14 uIU/mL (0.32-4.0)
== END 2023-12-05 09:04 | disposition home or self-care (01) ==
LOC: HO.HMGCLDS 09:03
PROVIDERS: PCP Internal Medicine; Visit Provider Internal Medicine
DX: Z00.01 Encounter for general adult medical examination with abnormal findings (principal); E03.9 Hypothyroidism, unspecified; E78.5 Hyperlipidemia, unspecified; I12.9 Hypertensive chronic kidney disease with stage 1 through stage 4 chronic kidney disease, or unspecified chronic kidney disease; N18.9 Chronic kidney disease, unspecified; R73.01 Impaired fasting glucose; I48.0 Paroxysmal atrial fibrillation; Z87.39 Personal history of other diseases of the musculoskeletal system and connective tissue
CPT/HCPCS: 36415; 80048; 80061; 84439; 84443; 84450; 84460; 84550

== ENCOUNTER 2023-12-13 11:15 | Outpatient (AMB) | payer MEDICARE, SELFPAY ==
[2023-12-13 11:40] VITALS: BP 160/80; PULSE 61; O2SAT 99; BMI 41.9
--- NOTE | 2023-12-13 11:40 | A.OFFPC_ITS ---
Vital Signs 12/13/23 11:40 Height 5 ft 2 in Weight 229 lb BMI 41.9 BP 160/80 H Blood Pressure Location Rt brachial Position Sitting Pulse 61 Pulse Source Pulse Oximeter Pulse Oximetry (%) 99 Oxygen Delivery Method Room Air Intake Visit Reasons: 5 month fu Intake Note: Pt is here today for her 5 months f/u Allergies amlodipine [From NORVASC] Allergy (Unknown, Verified 12/13/23 12:22) UNK amoxicillin [AMOXICILLIN] Allergy (Unknown, Verified 12/13/23 12:22) RASH, hives, rash latex [LATEX] Allergy (Unknown, Verified 12/13/23 12:22) RASH lisinopril Adverse Reaction (Unknown, Verified 12/13/23 12:22) cough Minoxidil Adverse Reaction (Unknown, Uncoded 12/13/23 12:22) hair growth Medication List - Last Reconciled 12/13/23 by Shirlene Clark MD allopurinol 100 mg PO DAILY apixaban (Eliquis) 5 mg PO BID 90 days atenolol 100 mg PO DAILY cholecalciferol (vitamin D3) 50 mcg PO DAILY furosemide 40 mg PO DAILY levothyroxine 88 mcg PO QAM loratadine (Claritin) 10 mg PO DAILY PRN btpdyomd-fsj-awhg-FA-vit K-lut 8 mg iron-400 mcg-50 mcg (Centrum Silver Women) 1 tab PO DAILY simvastatin 40 mg PO QPM valsartan 320 mg PO DAILY vitamins A,C,Z-vrim-juubtp 4,296 mcg-226 mg-90 mg (PreserVision AREDS) 1 cap PO BID Tobacco use date assessed: 12/13/23 Fall risk assessment: No Falls in past year Last assessed Fall Risk: 12/13/23 Dental Screening Dental Screen Date: 12/13/23 Did you have a dental visit in the last 12 months?: No Was dental information given to patient?: No HPI 5 month fu HPI Details 83-year-old lady with hypertension, paro xysmal atrial fibrillation with pacemaker placement and chronic anticoagulation with apixaban, has kidney disease, acquired hypothyroidism and dyslipidemia, here today for follow-up. Blood pressure today slightly elevated. However denies any chest pain or shortness of breath, no lightheadedness or palpitations. She had recent fasting labs done which showed electrolytes within normal limits, renal function remained stable, thyroid levels are within normal limits as well as fasting glucose, liver enzymes and fasting lipid panel. Serum uric acid however is kiley vated. [facility] Medical History (Updated 12/13/23 @ 12:31 by Shirlene Clark MD) COVID-19 vaccination refused History of gout Impaired fasting glucose Anemia CKD (chronic kidney disease) Acquired hypothyroidism History of complete heart block Essential hypertension Dyslipidemia Surgical History S/P placement of cardiac pacemaker Family History Father Substance use disorder Mother No problems noted. Social History Housing: Apartment Alcohol intake: current Alcohol intake frequency: holidays/special occasions only Alcohol type: wine Patient Tobacco Use Status: Never used Tobacco e-Cigarette/Vaping Use: Never Used Current occupational status: retired Cognitive needs: No Hearing needs: No Vision needs: Yes Questionnaire PHQ-9 Over the last 2 weeks, how often have you been bothered by any of the following problems? 1. Little interest or pleasure in doing things: not at all 2. Feeling down, depressed, or hopeless: not at all 3. Trouble falling or staying asleep, or sleeping too much: not at all 4. Feeling tired or having little energy: not at all 5. Poor appetite or overeating: not at all 6. Feeling bad about yourself - or that you are a failure or have let yourself or your family down: not at all 7. Trouble concentrating on things, such as reading the newspaper or watching television: not at all 8. Moving or speaking so slowly that other people could have noticed. Or the opposite - being so fidgety or restless that you have been moving around a lot more than usual: not at all 9. Thoughts that you would be better off or of hurting yourself in some way: not at all Total score: 0 Depression Screening Interpretation: Negative Depression Screening Done: Yes 35236 - PHQ-9 Billing: Yes Source: Developed by Drs. Bennie Stock, Sherri Joshua, Vitaliy Vu and colleagues, with an educational casper from [employer]. Thrive Questionnaire Date Thrive assessed: 12/13/23 I am a: Patient What is your living situation today?: I have a steady place to live Within the past 12 months, did the food you bought not last and you didn't have the money to get more?: Never true Within the past 12 months, did you worry whether your food would run out before you got money to buy more?: Never true Do you have trouble paying for medicines?: No Do you have trouble getting transportation to medical appointments?: No Do you have trouble paying your heating and electricity bill?: No Do you have trouble taking care of your child, family member or friend?: No Do you have trouble with day-to-day activities such as bathing, preparing meals, shopping, managing finances, etc.?: No Are you currently unemployed and looking for a job?: No Are you interested in more education?: No Currently or been in a relationship where the following occur: no concerns reported THRIVE Score: 0 AUDIT C Alcohol Use Questionnaire (AUDIT-C) 1. How often do you have a drink containing alcohol?: Monthly or less 2. How many drinks containing alcohol do you have on a typical day when you are drinking?: 1 or 2 3. How often do you have six or more drinks on one occasion?: Never Total Score: 1 MURRAY-7 AMB Questionnaire MURRAY-7 Date MURRAY - 7 assessed: 12/13/23 Feeling nervous, anxious, or on edge: 0 = Not at all Not being able to stop or control worryin = Not at all Worrying too much about different things: 0 = Not at all Trouble relaxin = Not at all Being so restless that it is hard to sit still: 0 = Not at all Becoming easily annoyed or irritable: 0 = Not at all Feeling afraid as if something awful might happen: 0 = Not at all Total MURRAY-7 score (0-4 normal; 5-9 mild; 10-14 moderate; 15-21 severe): 0 Source: Developed by Drs. Bennie Stock, Sherri Joshua, Vitaliy Vu and colleagues, with an educational casper from [employer]. MURRAY-7 Assessment Billing MURRAY-7 Assessment Tool: MURRAY-7 Assessment 01929 Review of Systems Const Denies chills, Denies fatigue, Denies fever(s), Denies frequent falls, Denies headache(s) and Denies weakness Eyes Denies change in vision ENT Denies dysphagia, Denies dizziness, Denies headache(s), Denies nasal congestion and Denies nasal discharge Card Denies chest pain, Denies leg edema, Denies lightheadedness, Denies palpitations, Reports dyspnea on exertion (mild , unchanged from before) and Denies orthopnea Resp Denies cough and Reports dyspnea on exertion (mild , unchanged from before) GI Denies hematochezia, Denies change in bowel habits and Denies dysphagia Reports no additional complaints Musc Denies abnormal gait, Denies muscle weakness, Denies numbness, Denies radiating pain into limb and Denies tingling Skin/Breast Denies breast pain, Denies breast mass, Denies lesions and Denies rash Neuro Denies abnormal gait, Denies dizziness, Denies frequent falls, Denies headache(s), Denies numbness, Denies tingling and Denies weakness Psych Reports no additional complaints Endo Denies fatigue and Denies palpitations Kennedy/Lymph Denies easy bleeding and Denies easy bruising Aller/Immun Reports seasonal rhinorrhea Physical exam (Primary Care) Vital Signs: Last Vital Signs Pulse 61 12/13/23 11:40 BP 160/80 H 12/13/23 11:40 Pulse Ox 99 12/13/23 11:40 Oxygen Delivery Method Room Air 12/13/23 11:40 BMI result Body Mass Index 41.9 Tobacco/Smoking Status: Tobacco use Status Tobacco use date assessed 12/13/23 12/13/23 11:42 Patient Tobacco Use Status Never used Tobacco 12/13/23 11:42 e-Cigarette/Vaping Use Never Used 12/13/23 11:42 PHQ-9: PHQ-9 Score PHQ-9: Total score 0 12/13/23 12:26 Depression Screening Interpretation: Negative Thrive Assessment: Date of Thrive Assessment Date Thrive assessed 12/13/23 12/13/23 12:00 Currently or been in a relationship where the following occur: no concerns reported Advance Care Planning discussion: Completed/Scanned Date of discussion: 12/13/23 Who was present: Patient Forms completed: Health Care Proxy Time spent: 16-45 minutes Actual minutes spent: 16 Const General: comfortable, no acute distress and alert Orientation/consciousness: patient oriented x3 HENMT Ears: TM's normal bilaterally and EAC's normal General nose exam: Normal external nose present Eyes General: appearance normal, both eyes and all related structures Neck Other: Nonpalpable thyroid gland Neck: Yes full ROM, Yes no lymphadenopathy and Yes supple Resp Effort & Inspection: normal respiratory effort and able to speak in complete sentences Auscultation: clear to auscultation bilaterally Cardio Other: S1 and S2 present regular rate and rhythm GI Other: Normal bowel sounds, soft, nontender, no mass palpated General: Yes no CVA tenderness Back/Spine/Pelvis Back: no CVA tenderness and No back tenderness Skin General skin exam: no rashes or lesions noted Neuro General: patient oriented x3, gait normal, tone normal, moves all extremities, Normal light touch and pain sensation, no focal motor deficits and CN's II-XI intact bilaterally Extrem General: Yes full ROM, Yes no joint enlargement, Yes no clubbing, cyanosis or edema, Yes no calf tenderness and Yes normal gait Psych Appearance: grossly normal Mental Status: mental status grossly normal Speech and movement: Normal speech and movement present Affect: normal affect Attitude: cooperative Results Reviewed Results Reviewed: Name: Mita Zapien Age/Sex: 83/F : 1940 Unit#: [id number] Attend Dr: Shirlene Clark MD Re12/05/23 Status: DEP REF Location: [facility] Disch: SPEC : [id number] MAREN: 12/05/23 STATUS: COMP REQ : [id number] RECD: 12/05/23-[address]: Shirlene Clark MD COMP: 12/05/23 ENTERED: 12/05/[address] [facility] [address]: ORDERED: Met Prof Fast, Uric, AST, ALT, Lipid Panel, Free T4, TSH Test Result Flag Reference Sodium 139 135-145 mmol/L Potassium 3.6 3.3-5.1 mmol/L CL 105 96-108 mmol/L CO2 27 22-29 mmol/L Gap 11 L 12-20 BUN 32 H 9-16 mg/dL Creat 1.31 0.5-1.4 mg/dL EGFR 39 NOTE: For -Yemeni individuals, multiply the result by 1.210. Chronic Kidney Disease: Estimated GFR < 60 mL/min/1.73m2 Severe Kidney Disease: Estimated GFR < 15 mL/min/1.73m2 FBS 98 60-99 mg/dL Uric Acid 6.3 H 2.4-5.7 mg/dL CA 10.3 H 8.4-10.2 mg/dL AST (GOT) 21 5-31 U/L ALT (GPT) 15 0-31 U/L Triglyceride 103 <150 mg/dL Desirable Triglyceride: less than 150 mg/dL Borderline High Triglyceride 150-199 mg/dL High Triglyceride: 200-499 mg/dL Very High Triglyceride: greater than or equal to 5OO mg/dL Cholesterol 187 <200 mg/dL Desirable Cholesterol: less than 200 mg/dL Borderline High Cholesterol: 200-239 mg/dL High Cholesterol: greater than 239 mg/dL LDL Calculated 105 H <100 mg/dL Desirable LDL: less than 100 mg/dL Near Optimal/Above Optimal LDL: 110-129 mg/dL Borderline High LDL: 130-159 mg/dL High LDL: 160-189 mg/dL Very High LDL: greater than or equal to 190 mg/dL HDL 62 >40 mg/dL Desirable HDL: greater than 40 mg/dL Note: This HDL assay may give artificially low results in patients with liver disease. Free T4 1.05 0.71-1.85 ng/dL TSH 3rd Gen. 1.14 0.32-4.0 uIU/mL Assessment and Plan Assessment & Plan (1) Essential hypertension: Code(s): I10 - Essential (primary) hypertension Plan: Today's blood pressure is elevated, will continue on present treatment, reinforced importance of following a low sodium diet, getting regular exercise, and lowering stress levels. (2) CKD (chronic kidney disease): Code(s): N18.9 - Chronic kidney disease, unspecified Plan: Renal function has decreased. Nephrology consult ordered (3) History of gout: Code(s): Z87.39 - Personal history of other diseases of the musculoskeletal system and connective tissue Plan: Currently asymptomatic, but uric acid is elevated, increase dose of allopurinol to 200 mg daily. Reminded patient to follow a low purine diet (4) Dyslipidemia: Code(s): E78.5 - Hyperlipidemia, unspecified Plan: Reviewed recent fasting lipid profile with patient with levels within normal . Continue with simvastatin 40 mg at bedtime , in addition to adherence to low-cholesterol diet and regular exercise, at least 30 minutes 3 to 4 times a week. Advised patient to make healthy food choices, eat more fruits, vegetables, whole grains, wild caught fish and low-fat dairy. Limit amount of meat and fried or fatty food products, as well as processed foods and fast foods. Follow-up scheduled with repeat fasting lipid panel in 6 months. (5) Acquired hypothyroidism: Code(s): E03.9 - Hypothyroidism, unspecified Plan: Her thyroid levels are within normal limits, currently doing well on present dose of thyroid medication, continued on levothyroxine 88 mcg daily in a.m. Orders: Orders Comprehensive [place]. Panel Fast 06/22/24 E03.9 - Hypothyroidism, unspecified, E78.5 - Hyperlipidemia, unspecified, I10 - Essential (primary) hypertension, N18.9 - Chronic kidney disease, unspecified, Z87.39 - Personal history of other diseases of the musculoskeletal system and connective tissue Uric Acid 06/22/24 E03.9 - Hypothyroidism, unspecified, E78.5 - Hyperlipidemia, unspecified, I10 - Essential (primary) hypertension, N18.9 - Chronic kidney disease, unspecified, Z87.39 - Personal history of other diseases of the musculoskeletal system and connective tissue Calcium, Ionized 06/22/24 E03.9 - Hypothyroidism, unspecified, E78.5 - Hyperlipidemia, unspecified, I10 - Essential (primary) hypertension, N18.9 - Chronic kidney disease, unspecified, Z87.39 - Personal history of other diseases of the musculoskeletal system and connective tissue Lipid Panel 06/22/24 E03.9 - Hypothyroidism, unspecified, E78.5 - Hyperlipidemia, unspecified, I10 - Essential (primary) hypertension, N18.9 - Chronic kidney disease, unspecified, Z87.39 - Personal history of other diseases of the musculoskeletal system and connective tissue Vitamin D 25-OH Total 06/22/24 E03.9 - Hypothyroidism, unspecified, E78.5 - Hyperlipidemia, unspecified, I10 - Essential (primary) hypertension, N18.9 - Chronic kidney disease, unspecified, Z87.39 - Personal history of other diseases of the musculoskeletal system and connective tissue Thyroid Stimulating Hormone 06/22/24 E03.9 - Hypothyroidism, unspecified, E78.5 - Hyperlipidemia, unspecified, I10 - Essential (primary) hypertension, N18.9 - Chronic kidney disease, unspecified, Z87.39 - Personal history of other diseases of the musculoskeletal system and connective tissue Free T4 (Free Thyroxine) 06/22/24 E03.9 - Hypothyroidism, unspecified, E78.5 - Hyperlipidemia, unspecified, I10 - Essential (primary) hypertension, N18.9 - Chronic kidney disease, unspecified, Z87.39 - Personal history of other diseases of the musculoskeletal system and connective tissue Referrals Nephrology Referral I10 - Essential (primary) hypertension, N18.9 - Chronic kidney disease, unspecified, Z87.39 - Personal history of other diseases of the musculoskeletal system and connective tissue Medications: Changed From allopurinol 100 mg PO DAILY 90 tabs 3RF To allopurinol 200 mg (2 x 100 mg) PO DAILY 180 tabs 3RF 3 months Refilled levothyroxine 88 mcg PO QAM 90 tabs 3RF simvastatin 40 mg PO QPM 90 tabs 3RF Coding Level of Care Code Est Pt Level 4 (33060) Diagnoses Essential hypertension I10 CKD (chronic kidney disease) N18.9 History of gout Z87.39 Dyslipidemia E78.5 Acquired hypothyroidism E03.9 Additional Codes Vital Signs *Quality* - Advance Care Planning discussion: Completed/Scanned ([id number]) Vital Signs *Quality* - Time spent: 16-45 minutes ([id number]) MURRAY-7 Assessment Billing - MURRAY-7 Assessment Tool: MURRAY-7 Assessment 43914 ([id number])
== END 2023-12-13 12:37 | disposition home or self-care (01) ==
PROVIDERS: PCP Internal Medicine; Visit Provider Internal Medicine
DX: I12.9 Hypertensive chronic kidney disease with stage 1 through stage 4 chronic kidney disease, or unspecified chronic kidney disease (principal); N18.9 Chronic kidney disease, unspecified; Z87.39 Personal history of other diseases of the musculoskeletal system and connective tissue; E78.5 Hyperlipidemia, unspecified; E03.9 Hypothyroidism, unspecified; Z00.00 Encounter for general adult medical examination without abnormal findings
CPT/HCPCS: 1123F; 99214; 99497

== ENCOUNTER 2024-01-23 13:45 | Outpatient (AMB) | payer MEDICARE, SELFPAY ==
--- NOTE | 2024-01-23 14:20 | A.OFFVIS_ITS ---
Vital Signs 01/23/24 14:21 Height 5 ft 2 in BP 150/70 H Blood Pressure Location Rt brachial Position Sitting Pulse 60 Pulse Source Monitor Intake Visit Reasons: [address] [facility] [address] Worker Required: No Labeling Strategist: Labeling Strategist Present Allergies amlodipine [From NORVASC] Allergy (Unknown, Verified 01/23/24 15:11) UNK amoxicillin [AMOXICILLIN] Allergy (Unknown, Verified 01/23/24 15:11) RASH, hives, rash latex [LATEX] Allergy (Unknown, Verified 01/23/24 15:11) RASH lisinopril Adverse Reaction (Unknown, Verified 01/23/24 15:11) cough Minoxidil Adverse Reaction (Unknown, Uncoded 01/23/24 14:23) hair growth Medication List - Last Reconciled 01/23/24 by Debora Morgan DRESS FITTER-C allopurinol 200 mg (2 x 100 mg) PO DAILY 3 months apixaban (Eliquis) 5 mg PO BID 90 days atenolol 100 mg PO DAILY cholecalciferol (vitamin D3) 50 mcg PO DAILY furosemide 40 mg PO DAILY levothyroxine 88 mcg PO QAM loratadine (Claritin) 10 mg PO DAILY PRN oywjyezd-coi-azwz-FA-vit K-lut 8 mg iron-400 mcg-50 mcg (Centrum Silver Women) 1 tab PO DAILY simvastatin 40 mg PO QPM valsartan 320 mg PO DAILY vitamins A,C,P-icuf-dzznrr 4,296 mcg-226 mg-90 mg (PreserVision AREDS) 1 cap PO BID HPI HPI [address] [facility]: Details: Mita is an 83-year-old female with past medical history of hypertension, hyperlipidemia, paroxysmal atrial fibrillation, complete heart block status post pacemaker placement who presents for follow-up. Today she reports she has been doing well since her last visit 12/20/2022. She denies any issues with chest discomfort at rest or with activity. No shortness of breath, PND, orthopnea or edema. No palpitations, lightheadedness, presyncope, syncope, falls. Taking meds as directed. Tries to remain active throughout the day. No bleeding issues reported. Daughter present. [facility] Medical History COVID-19 vaccination refused History of gout Impaired fasting glucose Anemia CKD (chronic kidney disease) Acquired hypothyroidism History of complete heart block Essential hypertension Dyslipidemia Surgical History S/P placement of cardiac pacemaker Family History Father Substance use disorder Mother No problems noted. Social History Housing: Apartment Alcohol intake: current Alcohol intake frequency: holidays/special occasions only Alcohol type: wine Patient Tobacco Use Status: Never used Tobacco e-Cigarette/Vaping Use: Never Used Current occupational status: retired Cognitive needs: No Hearing needs: No Vision needs: Yes Review of Systems Const All systems reviewed & are unremarkable except as noted in HPI and below ENT Denies dizziness Card Denies chest pain, Denies chest pain at rest, Denies chest pain with activity, Denies rapid heart rate, Denies pedal edema, Denies edema, Denies leg edema, Denies lightheadedness, Denies palpitations, Denies dyspnea, Denies dyspnea on exertion and Denies orthopnea Resp Denies cough, Denies dyspnea and Denies dyspnea on exertion GI Denies hematochezia and Denies change in stool character Musc Denies abnormal gait, Denies limited range of motion, Denies muscle cramps, Denies muscle weakness, Denies numbness, Denies radiating pain into limb, Denies stiffness and Denies tingling Neuro Denies abnormal gait, Denies dizziness, Denies numbness and Denies tingling Endo Denies palpitations Physical Exam Vital Signs: Last Vital Signs Pulse 60 01/23/24 14:21 BP 150/70 H 01/23/24 14:21 Const General: cooperative, healthy appearing, comfortable and no acute distress Orientation/consciousness: patient oriented x3 Neck Neck: Yes normal visual inspection and Yes no JVD Resp Effort & Inspection: normal respiratory effort Auscultation: clear to auscultation bilaterally, no crackles, no rales, no rhonchi and no wheezes Cardio Jugular venous distension: no JVD Rate: regular rate Rhythm: regular rhythm Heart sounds: S1 normal heart sound present, S2 normal heart sound present, no murmurs and no rubs Neuro General: patient oriented x3 Extrem General: Yes normal to inspection Psych Appearance: grossly normal Mental Status: mental status grossly normal Speech and movement: Normal speech and movement present Office Procedures Cardiac Device Check Cardiac Device Check Details: [facility] dual-chamber pacemaker interrogation today shows battery 5.5-5.9 years, DDD mode, low rate 60, atrial threshold 0.875 volts at 0.5 milliseconds, ventricular threshold 0.625 volts at 0.5 milliseconds, a paced 76%, V paced greater than 99%, AF burden recently 0%. [id number] Cardiac Device Check, pacemaker dual lead Procedure code (CPT) selection complete EKG Details: Today, read by me, A/V paced rhythm, rate 60 [id number], Complete Assessment & Plan Assessment & Plan (1) PAF (paroxysmal atrial fibrillation): Code(s): I48.0 - Paroxysmal atrial fibrillation Category: Medical Plan: History of paroxysmal atrial fibrillation. No recent reports of heart palpitations. EKG done today showing atrial and ventricular paced rhythm, rate 60. She is on atenolol for heart rate control. She is on Eliquis for anticoagulation. Labs done 12/05/2023 showed creatinine 1.31. No bleeding issues reported. Biannual CBC, BMP recommended. Cardiology follow-up in 1 year, sooner if needed (2) S/P placement of cardiac pacemaker: Comment: 01/28/2020 Code(s): Z95.0 - Presence of cardiac pacemaker Category: Surgical Plan: History of complete heart block. She now has [facility] dual-chamber pacemaker in place. Interrogation today shows device is functioning normally. Remote monitoring in use. Next office interrogation due in 1 year. (3) Heart block: Code(s): I45.9 - Conduction disorder, unspecified Category: Medical Plan: As above (4) Essential hypertension: Code(s): I10 - Essential (primary) hypertension Category: Medical Plan: History of hypertension. Blood pressure elevated at this visit, initially 170/80, recheck done by me after 15 minutes showing 150/70. She is on atenolol, Lasix and valsartan. She tells me she has been referred to nephrology by her P CP and has an appointment tomorrow. Nephrology will likely assist with management of blood pressure. Will hold off on any medication changes at this time. Low-salt diet and weight loss reviewed. Plan Time spent on chart review, documentation, interview and assessment Coding Level of Care Code Est Pt Level 4 (86589) Diagnoses PAF (paroxysmal atrial fibrillation) I48.0 S/P placement of cardiac pacemaker Z95.0 Heart block I45.9 Essential hypertension I10 CPT Codes Cardiac Device Check - Cardiac Device 2: 10231-SI Cardiac Device Check, pacemaker dual lead ([id number]) EKG - CPT: 35096-Bbgeszhjrzlakqtdq, Complete ([id number]) Time Spent (min) 28
[2024-01-23 14:21] VITALS: BP 150/70; PULSE 60
== END 2024-01-23 14:57 | disposition home or self-care (01) ==
PROVIDERS: PCP Internal Medicine; Visit Provider Nurse Practitioner Family
DX: I48.0 Paroxysmal atrial fibrillation (principal); Z95.0 Presence of cardiac pacemaker; I45.9 Conduction disorder, unspecified; I10 Essential (primary) hypertension
CPT/HCPCS: 93010; 93280; 99214

== ENCOUNTER → 2024-01-23 13:45 | Outpatient (BNVA) | payer MEDICARE, SELFPAY | PROVIDERS: PCP Internal Medicine; Visit Provider Nurse Practitioner Family | DX: I12.9 Hypertensive chronic kidney disease with stage 1 through stage 4 chronic kidney disease, or unspecified chronic kidney disease (principal); N18.9 Chronic kidney disease, unspecified; E83.52 Hypercalcemia; I48.0 Paroxysmal atrial fibrillation; I44.2 Atrioventricular block, complete; Z45.018 Encounter for adjustment and management of other part of cardiac pacemaker | CPT/HCPCS: 93005; 93280; 99202; 99212 ==

== ENCOUNTER 2024-01-23 15:06 | Outpatient (AMB) | payer MEDICARE, SELFPAY ==
[2024-01-23 15:09] VITALS: BP 170/80; PULSE 65; O2SAT 95; BMI 41.9
--- NOTE | 2024-01-23 15:09 | HO.NEPHOV ---
Vital Signs 01/23/24 15:09 Height 5 ft 2 in Weight 229 lb BMI 41.9 BP 170/80 H Blood Pressure Location Rt brachial Position Sitting Pulse 65 Pulse Source Pulse Oximeter Pulse Oximetry (%) 95 Oxygen Delivery Method Room Air Intake Visit Reasons: CKD/HTN/ Confirmed Epic Trainer Required: No Accompanied by: Daughter Allergies [facility] [[facility] Allergy (Unknown, Verified 01/23/24 15:11) UNK amoxicillin [AMOXICILLIN] Allergy (Unknown, Verified 01/23/24 15:11) RASH, hives, rash latex [LATEX] Allergy (Unknown, Verified 01/23/24 15:11) RASH lisinopril Adverse Reaction (Unknown, Verified 01/23/24 15:11) cough Minoxidil Adverse Reaction (Unknown, Uncoded 01/23/24 14:23) hair growth Medication List - Last Reconciled 01/23/24 by Daniel Morel MD allopurinol 200 mg (2 x 100 mg) PO DAILY 3 months apixaban (Eliquis) 5 mg PO BID 90 days atenolol 100 mg PO DAILY cholecalciferol (vitamin D3) 50 mcg PO DAILY furosemide 40 mg PO DAILY levothyroxine 88 mcg PO QAM loratadine (Claritin) 10 mg PO DAILY PRN jryiyjuq-lkh-ihqw-FA-vit K-lut 8 mg iron-400 mcg-50 mcg (Centrum Silver Women) 1 tab PO DAILY simvastatin 40 mg PO QPM valsartan 320 mg PO DAILY vitamins A,C,O-fuys-jqvqbj 4,296 mcg-226 mg-90 mg (PreserVision AREDS) 1 cap PO BID HPI Comments Details: . Mita is a pleasant 83-year-old woman with a history of hypertension for quite some time. She was found to have suboptimal renal function with a EGFR of about 35-45 mL/minute and hence this referral. Her blood pressure has been difficult to control. At home but blood pressure is around 130-150 mm Hg systolic. She is currently on valsartan 320 mg, Lasix 40 mg, atenolol 100 mg once a day. She is intolerant to amlodipine. Exact nature is unknown. Lisinopril gave her cough. Minoxidil caused excessive hair growth. She has a history of gout she is on allopurinol 100 mg a day. Last episode of gout was in 08/10/2023. She is currently retired since 1997. She is gained weight since She has on a regular diet [facility] Medical History (Updated 01/23/24 @ 15:49 by Daniel Morel MD) COVID-19 vaccination refused History of gout Impaired fasting glucose Anemia CKD (chronic kidney disease) Acquired hypothyroidism History of complete heart block Essential hypertension Dyslipidemia Surgical History S/P placement of cardiac pacemaker Family History Father Substance use disorder Mother No problems noted. Social History Housing: Apartment Alcohol intake: current Alcohol intake frequency: holidays/special occasions only Alcohol type: wine Patient Tobacco Use Status: Never used Tobacco e-Cigarette/Vaping Use: Never Used Current occupational status: retired Cognitive needs: No Hearing needs: No Vision needs: Yes Review of Systems Const Denies fever(s) and Denies weight loss Card Denies chest pain Resp Denies cough and Denies hemoptysis GI Denies abdominal pain, Denies diarrhea and Denies nausea Musc Denies back pain Neuro Denies focal weakness Physical Exam Vital Signs: Last Vital Signs Pulse 65 01/23/24 15:09 BP 170/80 H 01/23/24 15:09 Pulse Ox 95 01/23/24 15:09 Oxygen Delivery Method Room Air 01/23/24 15:09 BMI result Body Mass Index 41.9 Const General: comfortable Nutritional Appearance: well nourished Orientation/consciousness: patient oriented x3 HEENT Head: No normal to inspection Mouth: moist mucous membranes Neck Neck: Yes supple and Yes no JVD Resp Auscultation: clear to auscultation bilaterally, no rales and rub present Cardio Jugular venous distension: no JVD Palpation: no palpable S3 and no palpable S4 Heart sounds: no rubs GI Palpation (GI): Soft to palpation and nontender Percussion: No Fluid wave present General: Yes no CVA tenderness Back/Spine/Pelvis Back: no CVA tenderness Skin General skin exam: no rashes or lesions noted Neuro General: patient oriented x3 Extrem General: No clubbing and Yes edema (Trace) Results Reviewed Nephrology Results: Hgb 12.9 g/dl (12.0-16.0) 06/15/23 WBC 7.2 X10*3/uL (4.8-10.8) 06/15/23 Plt Count 323 X10*3/uL (160-400) 06/15/23 Sodium 139 mmol/L (135-145) 12/05/23 Potassium 3.6 mmol/L (3.3-5.1) 12/05/23 Chloride 105 mmol/L (96-108) 12/05/23 Carbon Dioxide 27 mmol/L (22-29) 12/05/23 BUN 32 mg/dL (9-16) H 12/05/23 Creatinine 1.31 mg/dL (0.5-1.4) 12/05/23 Calcium 10.3 mg/dL (8.4-10.2) H 12/05/23 Assessment & Plan Assessment & Plan (1) Essential hypertension: Code(s): I10 - Essential (primary) hypertension Category: Medical Plan: . Blood pressure is suboptimal. I would like to add back a calcium channel [place]. However she is intolerant to amlodipine therefore I will add hydralazine. Start hydralazine 10 mg twice a day and gradually titrate the dose depending on her tolerability. Encouraged to stay on low-sodium diet She will benefit from weight loss. . (2) CKD (chronic kidney disease): Code(s): N18.9 - Chronic kidney disease, unspecified Category: Medical Plan: . 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 In the past she did not have any significant proteinuria. Goal is to maintain blood pressure less than 130/80 mm Hg. Avoid nephrotoxic agents including NSAIDs. She will monitor renal function closely. . (3) Hypercalcemia: Code(s): E83.52 - Hypercalcemia Category: Medical Plan: . Most likely due to excessive vitamin-D intake. She is on 2000 units 1 a day for the last few years. Vitamin-D level was 76 in 06/10/2023. Check SPEP I have asked her to stop vitamin-D for a week and restart 5000 units every other day . Orders: Orders Comprehensive Met. Panel Today I10 - Essential (primary) hypertension, N18.9 - Chronic kidney disease, unspecified Complete Blood Count Auto Diff Today I10 - Essential (primary) hypertension, N18.30 - Chronic kidney disease, stage 3 unspecified, N18.9 - Chronic kidney disease, unspecified Parathyroid Hormone Intact Today I10 - Essential (primary) hypertension, N18.9 - Chronic kidney disease, unspecified UA and rflx microscopic Today I10 - Essential (primary) hypertension, N18.9 - Chronic kidney disease, unspecified Total Protein Urine Random Today I10 - Essential (primary) hypertension, N18.9 - Chronic kidney disease, unspecified Creatinine Urine Today I10 - Essential (primary) hypertension, N18.9 - Chronic kidney disease, unspecified Uric Acid Today I10 - Essential (primary) hypertension, N18.9 - Chronic kidney disease, unspecified Vitamin D 25-OH (D2 and D3) Today I10 - Essential (primary) hypertension, N18.9 - Chronic kidney disease, unspecified Protein Electrophoresis, Serum Today E83.52 - Hypercalcemia Medications: New hydralazine 10 mg PO BID 60 tabs 0RF Coding Level of Care Code New Pt Level 4 (99809) Diagnoses Essential hypertension I10 CKD (chronic kidney disease) N18.9 Hypercalcemia E83.52
== END 2024-01-23 15:45 | disposition home or self-care (01) ==
PROVIDERS: PCP Internal Medicine; Visit Provider Internal Medicine Hypertension Specialist
DX: I12.9 Hypertensive chronic kidney disease with stage 1 through stage 4 chronic kidney disease, or unspecified chronic kidney disease (principal); N18.9 Chronic kidney disease, unspecified; E83.52 Hypercalcemia
CPT/HCPCS: 99204

== ENCOUNTER → 2024-01-31 23:59 | Outpatient (BNV) | payer MEDICARE, SELFPAY ==
--- NOTE | 2024-02-05 18:51 | A.OFFVIS_ITS ---
Intake Visit Reasons: Remote device check- [facility] Allergies amlodipine [From [facility]] Allergy (Unknown, Verified 01/23/24 15:11) UNK amoxicillin [AMOXICILLIN] Allergy (Unknown, Verified 01/23/24 15:11) RASH, hives, rash latex [LATEX] Allergy (Unknown, Verified 01/23/24 15:11) RASH lisinopril Adverse Reaction (Unknown, Verified 01/23/24 15:11) cough Minoxidil Adverse Reaction (Unknown, Uncoded 01/23/24 14:23) hair growth PFSH Medical History COVID-19 vaccination refused History of gout Impaired fasting glucose Anemia CKD (chronic kidney disease) Acquired hypothyroidism History of complete heart block Essential hypertension Dyslipidemia Surgical History S/P placement of cardiac pacemaker Family History Father Substance use disorder Mother No problems noted. Social History Housing: Apartment Alcohol intake: current Alcohol intake frequency: holidays/special occasions only Alcohol type: wine Patient Tobacco Use Status: Never used Tobacco e-Cigarette/Vaping Use: Never Used Current occupational status: retired Cognitive needs: No Hearing needs: No Vision needs: Yes Office Procedures Cardiac Device Check Cardiac Device Check Details: Date of service- 01/31/2024 ; Battery life >5 years; normal lead parameters; AP 75%; [employer]ENDER >99%; no significant arrhythmias. Overall normal device function. [id number] Cardiac Device Interrogation, pacemaker Procedure code (CPT) selection complete Assessment & Plan Assessment & Plan (1) Heart block: Code(s): I45.9 - Conduction disorder, unspecified Category: Medical Plan x Coding Level of Care Code Procedure Only Diagnoses Heart block I45.9 CPT Codes Cardiac Device Check - Cardiac Device 12: [id number] Cardiac Device Interrogation, pacemaker ([id number])
== END ==
PROVIDERS: PCP Internal Medicine; Visit Provider Internal Medicine
DX: I45.9 Conduction disorder, unspecified (principal); Z95.0 Presence of cardiac pacemaker
CPT/HCPCS: 93294

== ENCOUNTER 2024-02-15 10:03 | Outpatient (REF) | payer MEDICARE, SELFPAY ==
[2024-02-15 13:08] LABS: MANUAL DIFF FLAG NO
[2024-02-15 13:18] LABS: Basophils Absolute Auto 0.1 X10*3/uL (0.0-0.2); Basophils Percent Auto 0.8 % (0-2); Eosinophils Absolute Auto 0.2 X10*3/uL (0.0-0.4); Eosinophils Percent Auto 3.4 % (0-4); Hematocrit 36.3 % (37.0-47.0); Imm Gran Abs Auto 0.01 X10*3/uL (0.00-0.03); Imm Gran Pct Auto 0.2 % (0.0-0.4); Lymphocytes Absolute Auto 1.4 X10*3/uL (1.2-4.9); Lymphocytes Percent Auto 22.4 % (20-40); Mean Corpuscular HGB Conc 33.1 g/dl (31.0-35.0); Mean Corpuscular Hemoglobin 31.4 pg (27.0-33.0); Mean Platelet Volume 10.9 fL (9.4-12.3); Monocytes Absolute Auto 0.8 X10*3/uL (0.1-1.2); Monocytes Percent Auto 13.4 % (2-11); Neutrophils Absolute Auto 3.7 x10*3/uL (2.0-8.3); Neutrophils Percent Auto 59.8 % (45-73); Platelet Count 303 X10*3/uL (160-400); Red Blood Count 3.82 X10*6/uL (4.20-5.50); Red Cell Distribution Width 13.3 % (11.0-16.0); White Blood Count 6.2 X10*3/uL (4.8-10.8)
[2024-02-15 13:28] LABS: Appearance Urine Cloudy; Color Urine Yellow; Glucose Urine UA Negative (Negative); Leukocyte Esterase Urine Large (3+) (Negative); Nitrite Urine Negative (Negative); Specific Gravity - Urine 1.015 (1.005-1.025); UMIC TRIGGER UA YES; Urine Blood Negative (Negative); Urine Ketones Negative (Negative); Urine Protein Trace mg/dL (Neg-Trace)
[2024-02-15 13:30] LABS: Alanine Aminotransferase 16 U/L (0-31); Albumin Level 4.1 g/dL (3.5-5.0); Alkaline Phosphatase 70 U/L (39-117); Anion Gap 13 (12-20); Aspartate Amino Transferase 22 U/L (5-31); Bilirubin Total 0.5 mg/dL (0.0-1.0); Blood Urea Nitrogen 26 mg/dL (9-16); Calcium 9.5 mg/dL (8.4-10.2); Carbon Dioxide 27 mmol/L (22-29); Chloride 104 mmol/L (96-108); Estimated Glomerular Filt Rate 38; Glucose Random 117 mg/dL (60-115); Potassium 3.7 mmol/L (3.3-5.1); Sodium 140 mmol/L (135-145); Total Protein 6.5 g/dL (6.5-8.0)
[2024-02-15 13:34] LABS: Bacteria Urine 2+ (None Seen); Hyaline Casts Urine 0-2 /LPF (0-2); RBC Urine 0-2 /HPF (0-2); Squamous Epithelial Cell Urine >20 /HPF (0-2)
[2024-02-15 13:44] LABS: Creatinine Urine 124.89 mg/dL; Total Protein Urine Random 11 mg/dL (<12)
[2024-02-15 13:50] LABS: Parathyroid Hormone Intact 100.7 pg/mL (8.7-77.1)
[2024-02-17 13:03] LABS: Prot Elec - Albumin 4.1 g/dL (3.8-4.8); Prot Elec - Alpha1 0.2 g/dL (0.2-0.3); Prot Elec - Alpha2 0.6 g/dL (0.5-0.9); Prot Elec - Beta 1 0.4 g/dL (0.4-0.6); Prot Elec - Beta 2 0.3 g/dL (0.2-0.5); Prot Elec - Gamma 0.6 g/dL (0.8-1.7); Prot Elec - Total Protein 6.2 g/dL (6.1-8.1)
[2024-02-19 16:59] LABS: Vitamin D 25-OH, D2 <4 ng/mL; Vitamin D 25-OH, D3 54 ng/mL; Vitamin D 25-OH, Total 54 ng/mL (30-100)
== END 2024-02-15 10:04 | disposition home or self-care (01) ==
LOC: HO.HMGCLDS 10:03
PROVIDERS: PCP Internal Medicine; Visit Provider Internal Medicine Hypertension Specialist
DX: I12.9 Hypertensive chronic kidney disease with stage 1 through stage 4 chronic kidney disease, or unspecified chronic kidney disease (principal); E83.52 Hypercalcemia; N18.30 Chronic kidney disease, stage 3 unspecified
CPT/HCPCS: 36415; 80053; 81001; 82306; 82570; 83970; 84156; 84165; 84550; 85025

== ENCOUNTER 2024-02-20 13:22 | Outpatient (AMB) | payer MEDICARE, SELFPAY ==
[2024-02-20 13:23] VITALS: BP 150/90; PULSE 59; O2SAT 99; BMI 41.3
--- NOTE | 2024-02-20 13:23 | HO.NEPHOV ---
Vital Signs 02/20/24 13:23 Height 5 ft 2 in Weight 226 lb BMI 41.3 BP 150/90 H Blood Pressure Location Rt brachial Position Sitting Pulse 59 Pulse Source Pulse Oximeter Pulse Oximetry (%) 99 Oxygen Delivery Method Room Air Intake Visit Reasons: 3-4 Wks follow up Labor Representative Required: No Accompanied by: Daughter Allergies amlodipine [From [facility]] Allergy (Unknown, Verified 02/20/24 13:26) UNK amoxicillin [AMOXICILLIN] Allergy (Unknown, Verified 02/20/24 13:26) RASH, hives, rash hydralazine Allergy (Unknown, Verified 02/20/24 13:27) rash latex [LATEX] Allergy (Unknown, Verified 02/20/24 13:26) RASH lisinopril Adverse Reaction (Unknown, Verified 02/20/24 13:26) cough Minoxidil Adverse Reaction (Unknown, Uncoded 01/23/24 14:23) hair growth HPI Comments Details: . Mita is a pleasant 83-year-old woman with a history of hypertension for quite some time. She was found to have suboptimal renal function with a EGFR of about 35-45 mL/minute and hence this referral. Her blood pressure has been difficult to control. At home but blood pressure is around 130-150 mm Hg systolic. She is currently on valsartan 320 mg, Lasix 40 mg, atenolol 100 mg once a day. She is intolerant to amlodipine. Exact nature is unknown. Lisinopril gave her cough. Minoxidil caused excessive hair growth. She has a history of gout she is on allopurinol 100 mg a day. Last episode of gout was in 08/10/2023. She is currently retired since 1997. She is gained weight since She has on a regular diet 02/20/2024 She was given hydralazine last visit. She developed allergic reaction in the form of lip swelling and rash. This was discontinued she was treated with Benadryl and symptoms resolved. She has been monitoring her blood pressure at home home blood pressure readings are acceptable. [facility] Medical History COVID-19 vaccination refused History of gout Impaired fasting glucose Anemia CKD (chronic kidney disease) Acquired hypothyroidism History of complete heart block Essential hypertension Dyslipidemia Surgical History S/P placement of cardiac pacemaker Family History Father Substance use disorder Mother No problems noted. Social History Housing: Apartment Alcohol intake: current Alcohol intake frequency: holidays/special occasions only Alcohol type: wine Patient Tobacco Use Status: Never used Tobacco e-Cigarette/Vaping Use: Never Used Current occupational status: retired Cognitive needs: No Hearing needs: No Vision needs: Yes Review of Systems Const Denies fever(s) and Denies weight loss Card Denies chest pain Resp Denies cough and Denies hemoptysis GI Denies abdominal pain, Denies diarrhea and Denies nausea Musc Denies back pain Neuro Denies focal weakness Physical Exam Vital Signs: Last Vital Signs Pulse 59 02/20/24 13:23 BP 150/90 H 02/20/24 13:23 Pulse Ox 99 02/20/24 13:23 Oxygen Delivery Method Room Air 02/20/24 13:23 BMI result Body Mass Index 41.3 Const General: comfortable; No acute distress Orientation/consciousness: patient oriented x3 Eyes General: appearance normal, both eyes and all related structures Visual Lawson: normal visual lawson by confrontation Neck Neck: Yes supple and Yes no JVD Resp Effort & Inspection: normal respiratory effort and respiratory effort not decreased Auscultation: rhonchi Cardio Palpation: no palpable S3 and no palpable S4 Heart sounds: no rubs GI Inspection: Yes normal to inspection Palpation (GI): Soft to palpation Percussion: Yes normal to percussion Auscultation: normal bowel sounds General: Yes no CVA tenderness Back/Spine/Pelvis Back: no CVA tenderness Skin General skin exam: no petechiae and no purpura Neuro General: patient oriented x3 and no focal motor deficits Extrem General: No clubbing and No edema Results Reviewed Nephrology Results: Hgb 12.0 g/dl (12.0-16.0) 02/15/24 WBC 6.2 X10*3/uL (4.8-10.8) 02/15/24 Plt Count 303 X10*3/uL (160-400) 02/15/24 Sodium 140 mmol/L (135-145) 02/15/24 Potassium 3.7 mmol/L (3.3-5.1) 02/15/24 Chloride 104 mmol/L (96-108) 02/15/24 Carbon Dioxide 27 mmol/L (22-29) 02/15/24 BUN 26 mg/dL (9-16) H 02/15/24 Creatinine 1.32 mg/dL (0.5-1.4) 02/15/24 Calcium 9.5 mg/dL (8.4-10.2) 02/15/24 PTH Intact 100.7 pg/mL (8.7-77.1) H 02/15/24 Urine Protein Trace mg/dL (Neg-Trace) 02/15/24 Urine Creatinine 124.89 mg/dL 02/15/24 Assessment & Plan Assessment & Plan (1) Essential hypertension: Code(s): I10 - Essential (primary) hypertension Category: Medical Plan: . Blood pressure is well controlled based on home readings. She probably has superimposed white coat effect. I will obtain a 24 hour ABP M. No new medications were added today. Encouraged to stay on low-sodium diet She will benefit from weight loss. . (2) CKD (chronic kidney disease): Code(s): N18.9 - Chronic kidney disease, unspecified Category: Medical Plan: . 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 No significant proteinuria. At present creatinine is close to baseline. Goal is to maintain blood pressure less than 130/80 mm Hg. Avoid nephrotoxic agents including NSAIDs. We will monitor renal function closely. . (3) Hypercalcemia: Code(s): E83.52 - Hypercalcemia Category: Medical Plan: . Most likely due to excessive vitamin-D intake. She while on 2000 units 1 a day for the last few years. Vitamin-D level was 76 in 06/10/2023. After decreasing vitamin-D supplementation serum calcium has normalized. She will follow as needed . Coding Level of Care Code Est Pt Level 4 (14778) Diagnoses Essential hypertension I10 CKD (chronic kidney disease) N18.9 Hypercalcemia E83.52
== END 2024-02-20 14:53 | disposition home or self-care (01) ==
PROVIDERS: PCP Internal Medicine; Visit Provider Internal Medicine Hypertension Specialist
DX: I12.9 Hypertensive chronic kidney disease with stage 1 through stage 4 chronic kidney disease, or unspecified chronic kidney disease (principal); N18.9 Chronic kidney disease, unspecified; E83.52 Hypercalcemia
CPT/HCPCS: 99214

== ENCOUNTER → 2024-02-20 13:22 | Outpatient (BNVA) | payer MEDICARE, SELFPAY | PROVIDERS: PCP Internal Medicine; Visit Provider Internal Medicine Hypertension Specialist | DX: I12.9 Hypertensive chronic kidney disease with stage 1 through stage 4 chronic kidney disease, or unspecified chronic kidney disease (principal); N18.9 Chronic kidney disease, unspecified; E83.52 Hypercalcemia | CPT/HCPCS: 99212 ==

== ENCOUNTER → 2024-02-21 16:51 | Outpatient (BNVA) | payer MEDICARE, SELFPAY | PROVIDERS: PCP Internal Medicine; Visit Provider Internal Medicine Hypertension Specialist ==

== ENCOUNTER 2024-04-17 11:11 | Outpatient (AMB) | payer MEDICARE, SELFPAY ==
--- NOTE | 2024-04-17 11:23 | MHC.OFFWIV ---
Intake Vital Signs 04/17/24 11:31 Weight 226 lb BP 142/80 H Blood Pressure Location Rt brachial Position Sitting Pulse 64 Pulse Source Pulse Oximeter Pulse Oximetry (%) 99 Oxygen Delivery Method Room Air Intake Visit Reasons: EP- possible UTI Intake Note: pt c/o urinary discomfort, burning and constant urge to urinate which Started tuesday. Patient Tobacco Use Status: Never used Tobacco Allergies amlodipine [From [facility]] Allergy (Unknown, Verified 04/17/24 11:30) UNK amoxicillin [AMOXICILLIN] Allergy (Unknown, Verified 04/17/24 11:30) RASH, hives, rash hydralazine Allergy (Unknown, Verified 04/17/24 11:30) rash latex [LATEX] Allergy (Unknown, Verified 04/17/24 11:30) RASH lisinopril Adverse Reaction (Unknown, Verified 04/17/24 11:30) cough Minoxidil Adverse Reaction (Unknown, Uncoded 04/17/24 11:30) hair growth Do you need a note to return to daycare/school/sports/work: No HPI HPI Comments History of Present Illness Details Patient is an 84-year-old female complaining of 3 days of burning and uncomfortableness with urination, increased frequency and urgency of urination. [facility] Medical History COVID-19 vaccination refused History of gout Impaired fasting glucose Anemia CKD (chronic kidney disease) Acquired hypothyroidism History of complete heart block Essential hypertension Dyslipidemia Surgical History S/P placement of cardiac pacemaker Family History Father Substance use disorder Mother No problems noted. Social History Housing: Apartment Alcohol intake: current Alcohol intake frequency: holidays/special occasions only Alcohol type: wine Patient Tobacco Use Status: Never used Tobacco e-Cigarette/Vaping Use: Never Used Current occupational status: retired Cognitive needs: No Hearing needs: No Vision needs: Yes Review of Systems Const All systems reviewed & are unremarkable except as noted in HPI and below Physical Exam Vital Signs: Last Vital Signs Pulse 64 04/17/24 11:31 BP 142/80 H 04/17/24 11:31 Pulse Ox 99 04/17/24 11:31 Oxygen Delivery Method Room Air 04/17/24 11:31 Const General: cooperative, healthy appearing, comfortable, no acute distress and well developed Orientation/consciousness: patient oriented x3 Limitations: no limitations HEENT Head: Yes normal to inspection Ears: hearing grossly normal bilaterally General nose exam: Normal external nose present Face and sinus: Yes normal facial exam Eyes General: appearance normal, both eyes and all related structures Neck Neck: Yes normal visual inspection and Yes full ROM Resp Effort & Inspection: normal respiratory effort and able to speak in complete sentences Skin General skin exam: no rashes or lesions noted Neuro General: patient oriented x3 Extrem General: Yes normal to inspection Results AMB Urinalysis, Automated UA Leukoctes 15 Jose/uL Last Edit by Iqra Villegas [facility] on 04/17/24 11:36 UA Nitrite Negative Last Edit by Iqra Villegas [facility] on 04/17/24 11:36 UA Urobilinogen 0.2 mg/dL Last Edit by Iqra Villegas [facility] on 04/17/24 11:36 UA Protein 0 mg/dL Last Edit by Iqra Villegas [facility] on 04/17/24 11:36 UA pH 6.0 Last Edit by Iqra Villegas [facility] on 04/17/24 11:36 UA Blood 0 Rajesh/uL Last Edit by Iqra Villegas [facility] on 04/17/24 11:36 UA Specific Pauline 1.010 Last Edit by Iqra Villegas [facility] on 04/17/24 11:36 UA Ketone Negative Last Edit by Iqra Villegas [facility] on 04/17/24 11:36 UA Bilirubin 0 mg/dL Last Edit by Iqra Villegas [facility] on 04/17/24 11:36 UA Glucose 0 mg/dL Last Edit by Iqra Villegas [facility] on 04/17/24 11:36 Assessment & Plan Assessment & Plan (1) UTI (urinary tract infection): Code(s): N39.0 - Urinary tract infection, site not specified Qualifiers: Hematuria presence: without hematuria Urinary tract infection type: acute cystitis Qualified Code(s): N30.00 - Acute cystitis without hematuria Plan: UA positive for leukocyte esterase, negative for blood. Since Cipro as patient has PCN allergy Plan see above Orders: Orders AMB Urinalysis Automated Today Z13.9 - Encounter for screening, unspecified Medications: New ciprofloxacin HCl 250 mg PO Q12H 6 tabs 0RF Coding Level of Care Code Est Pt Level 3 (58171) Diagnoses Acute cystitis without hematuria N30.00 Hematuria presence: without hematuria Urinary tract infection type: acute cystitis
[2024-04-17 11:31] VITALS: BP 142/80; PULSE 64; O2SAT 99
== END 2024-04-17 11:52 | disposition home or self-care (01) ==
PROVIDERS: PCP Internal Medicine; Visit Provider Physician Assistant
DX: N30.00 Acute cystitis without hematuria (principal)
CPT/HCPCS: 81003; 99213

== ENCOUNTER → 2024-05-01 23:59 | Outpatient (BNV) | payer MEDICARE, SELFPAY ==
--- NOTE | 2024-05-13 09:57 | A.OFFVIS_ITS ---
Intake Visit Reasons: Remote Device Check- [facility] Allergies amlodipine [From [facility]] Allergy (Unknown, Verified 04/17/24 11:30) UNK amoxicillin [AMOXICILLIN] Allergy (Unknown, Verified 04/17/24 11:30) RASH, hives, rash hydralazine Allergy (Unknown, Verified 04/17/24 11:30) rash latex [LATEX] Allergy (Unknown, Verified 04/17/24 11:30) RASH lisinopril Adverse Reaction (Unknown, Verified 04/17/24 11:30) cough Minoxidil Adverse Reaction (Unknown, Uncoded 04/17/24 11:30) hair growth PFSH Medical History COVID-19 vaccination refused History of gout Impaired fasting glucose Anemia CKD (chronic kidney disease) Acquired hypothyroidism History of complete heart block Essential hypertension Dyslipidemia Surgical History S/P placement of cardiac pacemaker Family History Father Substance use disorder Mother No problems noted. Social History Housing: Apartment Alcohol intake: current Alcohol intake frequency: holidays/special occasions only Alcohol type: wine Patient Tobacco Use Status: Never used Tobacco e-Cigarette/Vaping Use: Never Used Current occupational status: retired Cognitive needs: No Hearing needs: No Vision needs: Yes Office Procedures Cardiac Device Check Cardiac Device Check Details: Date of service- 05/01/2024 ; Battery life >5 years; normal lead parameters; AP 78%; [employer]ER >99%; no significant arrhythmias. Overall normal device function. [id number] Cardiac Device Interrogation, pacemaker Procedure code (CPT) selection complete Assessment & Plan Assessment & Plan (1) Heart block: Code(s): I45.9 - Conduction disorder, unspecified Category: Medical Plan x Coding Level of Care Code Procedure Only Diagnoses Heart block I45.9 CPT Codes Cardiac Device Check - Cardiac Device 12: [id number] Cardiac Device Interrogation, pacemaker ([id number])
== END ==
PROVIDERS: PCP Internal Medicine; Visit Provider Internal Medicine
DX: I45.9 Conduction disorder, unspecified (principal); Z95.0 Presence of cardiac pacemaker
CPT/HCPCS: 93294

== ENCOUNTER 2024-07-03 08:54 | Outpatient (REF) | payer MEDICARE, SELFPAY ==
[2024-07-03 11:02] LABS: Alanine Aminotransferase 21 U/L (0-31); Albumin Level 4.2 g/dL (3.5-5.0); Alkaline Phosphatase 73 U/L (39-117); Anion Gap 8 (12-20); Aspartate Amino Transferase 28 U/L (5-31); Bilirubin Total 0.5 mg/dL (0.0-1.0); Blood Urea Nitrogen 31 mg/dL (9-16); Calcium 9.4 mg/dL (8.4-10.2); Carbon Dioxide 28 mmol/L (22-29); Chloride 108 mmol/L (96-108); Cholesterol 163 mg/dL (<200); Estimated Glomerular Filt Rate 39; Glucose Fasting 100 mg/dL (60-99); HDL Cholesterol 59 mg/dL (>40); LDL Cholesterol Calculated 86 mg/dL (<100); Potassium 3.7 mmol/L (3.3-5.1); Sodium 140 mmol/L (135-145); Total Protein 6.4 g/dL (6.5-8.0); Triglycerides 92 mg/dL (<150)
[2024-07-03 11:13] LABS: Free T4 (Free Thyroxine) 1.23 ng/dL (0.71-1.85); Thyroid Stimulating Hormone 0.69 uIU/mL (0.32-4.0); Uric Acid 5.6 mg/dL (2.4-5.7); Vitamin D 25-OH Total 61.9 ng/mL (>30)
[2024-07-05 14:28] LABS: Calcium, Ionized 5.2 mg/dL (4.7-5.5)
== END 2024-07-03 08:55 | disposition home or self-care (01) ==
LOC: HO.HMGCLDS 08:54
PROVIDERS: PCP Internal Medicine; Visit Provider Internal Medicine
DX: E78.5 Hyperlipidemia, unspecified (principal); I10 Essential (primary) hypertension; E03.9 Hypothyroidism, unspecified; N18.9 Chronic kidney disease, unspecified; Z87.39 Personal history of other diseases of the musculoskeletal system and connective tissue
CPT/HCPCS: 36415; 80053; 80061; 82306; 82330; 84439; 84443; 84550

== ENCOUNTER 2024-07-10 10:52 | Outpatient (AMB) | payer MEDICARE, SELFPAY ==
[2024-07-10 11:12] VITALS: BP 110/60; PULSE 60; O2SAT 97; BMI 41.7
--- NOTE | 2024-07-10 11:12 | A.OFFPC_ITS ---
Vital Signs 07/10/24 11:12 Height 5 ft 2 in Weight 228 lb BMI 41.7 BP 110/60 Blood Pressure Location Lt brachial Position Sitting Pulse 60 Pulse Oximetry (%) 97 Oxygen Delivery Method Room Air Intake Visit Reasons: Annual PE Intake Note: Pt is here today for her PE Allergies amlodipine [From NORVASC] Allergy (Unknown, Verified 07/10/24 11:52) UNK amoxicillin [AMOXICILLIN] Allergy (Unknown, Verified 07/10/24 11:52) RASH, hives, rash hydralazine Allergy (Unknown, Verified 07/10/24 11:52) rash latex [LATEX] Allergy (Unknown, Verified 07/10/24 11:52) RASH lisinopril Adverse Reaction (Unknown, Verified 07/10/24 11:52) cough Minoxidil Adverse Reaction (Unknown, Uncoded 07/10/24 11:52) hair growth Medication List - Last Reconciled 07/10/24 by Shirlene Clark MD allopurinol 200 mg (2 x 100 mg) PO DAILY 3 months apixaban (Eliquis) 5 mg PO BID 90 days atenolol 100 mg PO DAILY diphenhydramine HCl (Benadryl) 25 mg PO BID PRN furosemide 40 mg PO DAILY levothyroxine 88 mcg PO QAM eiputfvf-ivf-qexk-FA-vit K-lut 8 mg iron-400 mcg-50 mcg (Centrum Silver Women) 1 tab PO DAILY simvastatin 40 mg PO QPM valsartan 320 mg PO DAILY vitamins A,C,P-qcmt-elofmt 4,296 mcg-226 mg-90 mg (PreserVision AREDS) 1 cap PO BID Tobacco use date assessed: 07/10/24 Fall risk assessment: No Falls in past year Last assessed Fall Risk: 07/10/24 Dental Screening Dental Screen Date: 07/10/24 Did you have a dental visit in the last 12 months?: No Did you have a dental problem in the last 6 months where you did not have access to dental care?: No Was dental information given to patient?: Patient declined HPI Annual PE HPI Details The patient is an 84-year-old female presenting for a physical exam and management of chronic conditions. She has a history of impaired fasting glucose, anemia, chronic kidney disease, acquired hypothyroidism, complete heart block, essential hypertension, and atrial fibrillation. She takes levothyroxine (88 mg daily) for hypothyroidism, simvastatin (40 mg at night) for hyperlipidemia, furosemide for leg swelling, atenolol (100 mg daily) and valsartan (320 mg daily) for hypertension, and apixaban (5 mg twice a day) for atrial fibrillation, prescribed by her procurement professional logistics. She also takes allopurinol for gout, but adjusted dosage to 200 mg after experiencing diarrhea initially. Her calcium was elevated likely due to excess vitamin D intake , leading her kidney doctor Dr Morel) to reduce the intake to alternate days; recent vitamin D and calcium levels were normal. Kidney function, as evidenced by a stable creatinine level of 1.3 and a GFR of 39, remains chronically impaired. Her lipid panel is within normal limits, including an LDL at 86. She denies current use of Claritin but takes it as needed for allergies. The patient has initial macular degeneration monitored by an court messenger. at [facility] , and started on Preservision. Currently, she reports stable control over her conditions with current medications. [facility] Medical History COVID-19 vaccination refused History of gout Impaired fasting glucose Anemia CKD (chronic kidney disease) Acquired hypothyroidism History of complete heart block Essential hypertension Dyslipidemia Surgical History S/P placement of cardiac pacemaker Family History Father Substance use disorder Mother No problems noted. Social History Housing: Apartment Alcohol intake: current Alcohol intake frequency: holidays/special occasions only Alcohol type: wine Patient Tobacco Use Status: Never used Tobacco e-Cigarette/Vaping Use: Never Used Current occupational status: retired Cognitive needs: No Hearing needs: No Vision needs: Yes Questionnaire PHQ-9 Over the last 2 weeks, how often have you been bothered by any of the following problems? 1. Little interest or pleasure in doing things: not at all 2. Feeling down, depressed, or hopeless: not at all 3. Trouble falling or staying asleep, or sleeping too much: not at all 4. Feeling tired or having little energy: not at all 5. Poor appetite or overeating: not at all 6. Feeling bad about yourself - or that you are a failure or have let yourself or your family down: not at all 7. Trouble concentrating on things, such as reading the newspaper or watching television: not at all 8. Moving or speaking so slowly that other people could have noticed. Or the opposite - being so fidgety or restless that you have been moving around a lot more than usual: not at all 9. Thoughts that you would be better off or of hurting yourself in some way: not at all Total score: 0 Depression Screening Interpretation: Negative Depression Screening Done: Yes 25298 - PHQ-9 Billing: Yes Source: Developed by Drs. Bennie Stock, Sherri Joshua, Vitaliy Vu and colleagues, with an educational casper from [employer]. Thrive Questionnaire Date Thrive assessed: 07/10/24 I am a: Patient What is your living situation today?: I have a steady place to live Within the past 12 months, did the food you bought not last and you didn't have the money to get more?: I choose not to answer this question Within the past 12 months, did you worry whether your food would run out before you got money to buy more?: I choose not to answer this question Do you have trouble paying for medicines?: No Do you have trouble getting transportation to medical appointments?: No Do you have trouble paying your heating and electricity bill?: No Do you have trouble taking care of your child, family member or friend?: No Do you have trouble with day-to-day activities such as bathing, preparing meals, shopping, managing finances, etc.?: No Are you currently unemployed and looking for a job?: No Are you interested in more education?: No Please select the resources that you would like help with: None Currently or been in a relationship where the following occur: No concerns rep orted THRIVE Score: 0 AUDIT C Alcohol Use Questionnaire (AUDIT-C) 1. How often do you have a drink containing alcohol?: 2-4 times a month 2. How many drinks containing alcohol do you have on a typical day when you are drinking?: 1 or 2 3. How often do you have six or more drinks on one occasion?: Never Total Score: 2 MURRAY-7 AMB Questionnaire MURRAY-7 Date MURRAY - 7 assessed: 07/10/24 Feeling nervous, anxious, or on edge: 0 = Not at all Not being able to stop or control worryin = Not at all Worrying too much about different things: 0 = Not at all Trouble relaxin = Not at all Being so restless that it is hard to sit still: 0 = Not at all Becoming easily annoyed or irritable: 0 = Not at all Feeling afraid as if something awful might happen: 0 = Not at all Total MURRAY-7 score (0-4 normal; 5-9 mild; 10-14 moderate; 15-21 severe): 0 Source: Developed by Drs. Bennie Stock, Sherri Joshua, Vitaliy Vu and colleagues, with an educational casper from [employer]. MURRAY-7 Assessment Billing MURRAY-7 Assessment Tool: MURRAY-7 Assessment 25994 Review of Systems Const Denies fever(s) and Denies weight loss Eyes Details: goes to [facility] ENT Reports no additional complaints Card Denies chest pain Resp Denies cough and Denies hemoptysis GI Denies abdominal pain, Denies diarrhea and Denies nausea Reports no additional complaints and Denies urinary incontinence Musc Denies back pain Skin/Breast Denies acne, Denies bleeding lesions, Denies breast skin changes and Denies breast mass Neuro Denies focal weakness Psych Reports no additional complaints Endo Reports no additional complaints Kennedy/Lymph Reports no additional complaints Aller/Immun Reports no additional complaints Physical exam (Primary Care) Vital Signs: Last Vital Signs Pulse 60 07/10/24 11:12 BP 110/60 07/10/24 11:12 Pulse Ox 97 07/10/24 11:12 Oxygen Delivery Method Room Air 07/10/24 11:12 BMI result Body Mass Index 41.7 Tobacco/Smoking Status: Tobacco use Status Tobacco use date assessed 07/10/24 07/10/24 11:18 Patient Tobacco Use Status Never used Tobacco 07/10/24 11:14 e-Cigarette/Vaping Use Never Used 07/10/24 11:14 PHQ-9: PHQ-9 Score PHQ-9: Total score 0 07/10/24 12:14 Depression Screening Interpretation: Negative Thrive Assessment: Date of Thrive Assessment Date Thrive assessed 07/10/24 07/10/24 11:44 Currently or been in a relationship where the following occur: No concerns reported Const General: comfortable, no acute distress and alert Orientation/consciousness: patient oriented x3 HENMT Ears: TM's normal bilaterally and EAC's normal General nose exam: Normal external nose present Eyes General: appearance normal, both eyes and all related structures Neck Other: Nonpalpable thyroid gland Neck: Yes full ROM, Yes no lymphadenopathy and Yes supple Resp Effort & Inspection: normal respiratory effort and able to speak in complete sentences Auscultation: clear to auscultation bilaterally Cardio Other: S1 and S2 present regular rate and rhythm GI Other: Normal bowel sounds, soft, nontender, no mass palpated General: Yes no CVA tenderness Back/Spine/Pelvis Back: no CVA tenderness and No back tenderness Skin General skin exam: no rashes or lesions noted Neuro General: patient oriented x3, gait normal, tone normal, moves all extremities, Normal light touch and pain sensation, no focal motor deficits and CN's II-XI intact bilaterally Extrem General: Yes full ROM, Yes no joint enlargement, Yes no clubbing, cyanosis or edema, Yes no calf tenderness and Yes normal gait Psych Appearance: grossly normal Mental Status: mental status grossly normal Speech and movement: Normal speech and movement present Affect: normal affect Attitude: cooperative Coding Level of Care Code Est Pt Prev Care >65y(24773) Diagnoses Annual visit for general adult medical examination with abnormal findings Z00. PAF (paroxysmal atrial fibrillation) I48.0 Impaired fasting glucose R73.01 CKD (chronic kidney disease) N18.9 Acquired hypothyroidism E03.9 Essential hypertension I10 Dyslipidemia E78.5 Advanced directives, counseling/discussion Z71.89 Additional Codes MURRAY-7 Assessment Billing - MURRAY-7 Assessment Tool: MURRAY-7 Assessment 92726 ([id number]) PHQ-9 - 94179 - PHQ-9 Billing: Yes ([id number]) Assessment & Plan Assessment & Plan (1) Annual visit for general adult medical examination with abnormal findings: Code(s): Z00.01 - Encounter for general adult medical examination with abnormal findings (2) PAF (paroxysmal atrial fibrillation): Code(s): I48.0 - Paroxysmal atrial fibrillation Category: Medical (3) Paroxysmal atrial fibrillation: Code(s): I48.0 - Paroxysmal atrial fibrillation Category: Medical (4) Impaired fasting glucose: Code(s): R73.01 - Impaired fasting glucose Category: Medical (5) CKD (chronic kidney disease): Code(s): N18.9 - Chronic kidney disease, unspecified Category: Medical (6) Acquired hypothyroidism: Code(s): E03.9 - Hypothyroidism, unspecified Category: Medical (7) Essential hypertension: Code(s): I10 - Essential (primary) hypertension Category: Medical (8) Dyslipidemia: Code(s): E78.5 - Hyperlipidemia, unspecified Category: Medical (9) Advanced directives, counseling/discussion: Code(s): Z71.89 - Other specified counseling Plan: Initiated the conversation about Advanced Directives. Advanced Directives help patients prepare for current and future decisions about their medical treatment and place of care. Discussed with patient that it is a process where a patients current condition and prognosis are reviewed, their wishes for information regarding their illness are elicited, and likely medical dilemmas are presented and options discussed. MOLST form completed and preserved in her medical record. The form can be amended as needed, reviewed yearly and make changes as needed Plan - Routine follow-up for chronic kidney disease and evaluation of kidney function through periodic laboratory tests. - Continue current management of hypothyroidism with levothyroxine and monitor thyroid function tests periodically. - Maintain blood pressure within target range with current antihypertensive regimen. - Continue management of atrial fibrillation with apixaban; follow-up with a procurement professional logistics as required. - Monitor lipid levels and continue simvastatin. - Follow up with an court messenger for macular degeneration. - Review dietary intake and consider nutritional guidance for weight management. - Reinforce avoidance of NSAIDs, and continuation of vitamin D under nephrology guidance. - Avoid NSAID use; use acetaminophen for pain management. - Schedule annual physical examination for next year. - Maintain a balanced diet for weight management and overall well-being. - Keep regular eye appointments due to macular changes. - Follow nephrology recommendations for vitamin D intake adjustments.
== END 2024-07-10 12:18 | disposition home or self-care (01) ==
PROVIDERS: PCP Internal Medicine; Visit Provider Internal Medicine
DX: Z00.00 Encounter for general adult medical examination without abnormal findings (principal); I12.9 Hypertensive chronic kidney disease with stage 1 through stage 4 chronic kidney disease, or unspecified chronic kidney disease; N18.9 Chronic kidney disease, unspecified; I48.0 Paroxysmal atrial fibrillation; R73.01 Impaired fasting glucose; E03.9 Hypothyroidism, unspecified; E78.5 Hyperlipidemia, unspecified; Z71.89 Other specified counseling

== ENCOUNTER → 2024-07-10 10:52 | Outpatient (BNVA) | payer MEDICARE, SELFPAY | PROVIDERS: PCP Internal Medicine; Visit Provider Internal Medicine | DX: Z00.01 Encounter for general adult medical examination with abnormal findings (principal); I48.0 Paroxysmal atrial fibrillation; R73.01 Impaired fasting glucose; I12.9 Hypertensive chronic kidney disease with stage 1 through stage 4 chronic kidney disease, or unspecified chronic kidney disease; N18.9 Chronic kidney disease, unspecified; E03.9 Hypothyroidism, unspecified; E78.5 Hyperlipidemia, unspecified | CPT/HCPCS: 96127; 99397 ==

== ENCOUNTER → 2024-07-31 23:59 | Outpatient (BNV) | payer MEDICARE, SELFPAY ==
--- NOTE | 2024-08-07 19:11 | A.OFFVIS_ITS ---
Intake Visit Reasons: Remote Device Check- [facility] Allergies amlodipine [From NORVASC] Allergy (Unknown, Verified 07/10/24 11:52) UNK amoxicillin [AMOXICILLIN] Allergy (Unknown, Verified 07/10/24 11:52) RASH, hives, rash hydralazine Allergy (Unknown, Verified 07/10/24 11:52) rash latex [LATEX] Allergy (Unknown, Verified 07/10/24 11:52) RASH lisinopril Adverse Reaction (Unknown, Verified 07/10/24 11:52) cough Minoxidil Adverse Reaction (Unknown, Uncoded 07/10/24 11:52) hair growth PFSH Medical History COVID-19 vaccination refused History of gout Impaired fasting glucose Anemia CKD (chronic kidney disease) Acquired hypothyroidism History of complete heart block Essential hypertension Dyslipidemia Surgical History S/P placement of cardiac pacemaker Family History Father Substance use disorder Mother No problems noted. 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 Overall normal device function. [id number] Cardiac Device Interrogation, pacemaker Procedure code (CPT) selection complete Assessment & Plan Assessment & Plan (1) S/P placement of cardiac pacemaker: Comment: 01/28/2020 Code(s): Z95.0 - Presence of cardiac pacemaker Category: Surgical (2) Paroxysmal atrial fibrillation: Code(s): I48.0 - Paroxysmal atrial fibrillation Category: Medical (3) Heart block: Code(s): I45.9 - Conduction disorder, unspecified Category: Medical Plan x Coding Level of Care Code Procedure Only Diagnoses S/P placement of cardiac pacemaker Z95.0 Paroxysmal atrial fibrillation I48.0 Heart block I45.9 CPT Codes Cardiac Device Check - Cardiac Device 12: [id number] Cardiac Device Interrogation, pacemaker ([id number])
== END ==
PROVIDERS: PCP Internal Medicine; Visit Provider Internal Medicine
DX: I48.0 Paroxysmal atrial fibrillation (principal); I45.9 Conduction disorder, unspecified; Z95.0 Presence of cardiac pacemaker
CPT/HCPCS: 93294

== ENCOUNTER → 2024-10-30 23:59 | Outpatient (BNV) | payer MEDICARE, SELFPAY ==
--- NOTE | 2024-11-04 10:51 | MHC.OFFVIS ---
Intake Visit Reasons: Remote device check- [facility] Allergies amlodipine [From NORVASC] Allergy (Unknown, Verified 07/10/24 11:52) UNK amoxicillin [AMOXICILLIN] Allergy (Unknown, Verified 07/10/24 11:52) RASH, hives, rash hydralazine Allergy (Unknown, Verified 07/10/24 11:52) rash latex [LATEX] Allergy (Unknown, Verified 07/10/24 11:52) RASH lisinopril Adverse Reaction (Unknown, Verified 07/10/24 11:52) cough Minoxidil Adverse Reaction (Unknown, Uncoded 07/10/24 11:52) hair growth [facility] Medical History COVID-19 vaccination refused History of gout Impaired fasting glucose Anemia CKD (chronic kidney disease) Acquired hypothyroidism History of complete heart block Essential hypertension Dyslipidemia Surgical History S/P placement of cardiac pacemaker Family History Father Substance use disorder Mother No problems noted. 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 Ventricular rate 99/Min. Overall normal device function. [id number] Cardiac Device Interrogation, pacemaker Procedure code (CPT) selection complete Assessment & Plan Assessment & Plan (1) Heart block: Code(s): I45.9 - Conduction disorder, unspecified Category: Medical (2) Paroxysmal atrial fibrillation: Code(s): I48.0 - Paroxysmal atrial fibrillation Category: Medical Plan x Coding Level of Care Code Procedure Only Diagnoses Heart block I45.9 Paroxysmal atrial fibrillation I48.0 CPT Codes Cardiac Device Check - Cardiac Device 12: [id number] Cardiac Device Interrogation, pacemaker ([id number])
== END ==
PROVIDERS: PCP Internal Medicine; Visit Provider Internal Medicine
DX: I45.9 Conduction disorder, unspecified (principal); I48.0 Paroxysmal atrial fibrillation
CPT/HCPCS: 93294

== ENCOUNTER 2025-01-21 12:48 | Outpatient (AMB) | payer MEDICARE, SELFPAY ==
--- NOTE | 2025-01-21 13:02 | A.OFFVIS_ITS ---
Vital Signs 01/21/25 13:10 Height 5 ft 2 in Weight 228 lb BMI 41.7 BP 130/68 Blood Pressure Location Lt brachial Position Sitting Pulse 60 Pulse Source Monitor Intake Visit Reasons: 1 yr w/ [facility] ck Allergies amlodipine [From NORVASC] Allergy (Unknown, Verified 07/10/24 11:52) UNK amoxicillin [AMOXICILLIN] Allergy (Unknown, Verified 07/10/24 11:52) RASH, hives, rash hydralazine Allergy (Unknown, Verified 07/10/24 11:52) rash latex [LATEX] Allergy (Unknown, Verified 07/10/24 11:52) RASH lisinopril Adverse Reaction (Unknown, Verified 07/10/24 11:52) cough Minoxidil Adverse Reaction (Unknown, Uncoded 07/10/24 11:52) hair growth Medication List - Last Reconciled 01/21/25 by Debora Morgan, ASSOCIATE PROFESSOR OF PHYSICS-C allopurinol 200 mg (2 x 100 mg) PO DAILY 3 months apixaban (Eliquis) 5 mg PO BID atenolol 100 mg PO DAILY diphenhydramine HCl (Benadryl) 25 mg PO BID PRN furosemide 40 mg PO DAILY levothyroxine 88 mcg PO QAM aiauwwju-wqv-ixzi-FA-vit K-lut 8 mg iron-400 mcg-50 mcg (Centrum Silver Women) 1 tab PO DAILY simvastatin 40 mg PO QPM valsartan 320 mg PO DAILY vitamins A,C,G-hwbt-rdplzf 4,296 mcg-226 mg-90 mg (PreserVision AREDS) 1 cap PO BID HPI HPI [address] yr w[address] [facility]ris ck: Details: Mita is an 84-year-old female with past medical history of hypertension, h yperlipidemia, paroxysmal atrial fibrillation, complete heart block status post pacemaker placement who presents for follow-up. Today she reports she has been doing well since her last visit 01/23/24. She denies any issues with chest discomfort at rest or with activity. No concerning shortness of breath, PND, orthopnea or edema. No palpitations, lightheadedness, presyncope, syncope, falls. Has not been able to lose weight. Taking meds as directed. Tries to remain active throughout the day. No bleeding issues reported. Daughter present. [facility] Medical History COVID-19 vaccination refused History of gout Impaired fasting glucose Anemia CKD (chronic kidney disease) Acquired hypothyroidism History of complete heart block Essential hypertension Dyslipidemia Surgical History S/P placement of cardiac pacemaker Family History Father Substance use disorder Mother No problems noted. Social History Housing: Apartment Alcohol intake: current Alcohol intake frequency: holidays/special occasions only Alcohol type: wine Patient Tobacco Use Status: Never used Tobacco e-Cigarette/Vaping Use: Never Used Current occupational status: retired Cognitive needs: No Hearing needs: No Vision needs: Yes Review of Systems Const All systems reviewed & are unremarkable except as noted in HPI and below Denies weakness ENT Denies dizziness Card Denies chest pain, Denies chest pain with activity, Denies syncope, Denies rapid heart rate, Denies pedal edema, Denies edema, Denies leg edema, Denies lightheadedness, Denies palpitations, Denies dyspnea, Reports dyspnea on exertion and Denies orthopnea Resp Denies cough, Denies dyspnea and Reports dyspnea on exertion GI Denies hematochezia and Denies change in stool character Musc Denies abnormal gait, Denies muscle cramps, Denies muscle weakness, Denies numbness, Denies radiating pain into limb and Denies tingling Neuro Denies abnormal gait, Denies dizziness, Denies syncope, Denies numbness, Denies tingling and Denies weakness Endo Denies palpitations Physical Exam Const General: cooperative, healthy appearing, comfortable and no acute distress Orientation/consciousness: patient oriented x3 Neck Neck: Yes normal visual inspection and Yes no JVD Resp Effort & Inspection: normal respiratory effort Auscultation: clear to auscultation bilaterally, no crackles, no rales, no rhonchi and no wheezes Cardio Other: pacer site left upper chest benign Jugular venous distension: no JVD Rate: regular rate Rhythm: regular rhythm Heart sounds: S1 normal heart sound present, S2 normal heart sound present, no murmurs and no rubs Neuro General: patient oriented x3 Extrem Other: soft nonpitting swelling of lower legs, L>R Psych Appearance: grossly normal Mental Status: mental status grossly normal Speech and movement: Normal speech and movement present Office Procedures Cardiac Device Check Cardiac Device Check Details: [facility] [employer] dual-chamber pacemaker interrogation, battery 4.5-4.9 years, atrial threshold 0.75 volts at 0.5 milliseconds, ventricular threshold 0.5 volts at 0.5 milliseconds, DDD mode, low rate 60, a paced 77%, V paced 98%, 5 mode switches, longest 5 hours on 11/09/2024, AF burden less than 1%. [id number] Cardiac Device Check, pacemaker dual lead Procedure code (CPT) selection complete EKG Details: Today, read by me, atrial sensed, ventricular paced rhythm, can not exclude prior inferior and anterior wall infarcts, rate 60, QTC 470 millisecond [id number], Complete Assessment & Plan Assessment & Plan (1) PAF (paroxysmal atrial fibrillation): Code(s): I48.0 - Paroxysmal atrial fibrillation Category: Medical Plan: History of paroxysmal atrial fibrillation. Device interrogation shows 5 episodes of PAF since last check, longest 5 hours, asymptomatic. EKG done today showing atrial since and ventricular paced rhythm, rate 60. She is on atenolol for heart rate control. She is on Eliquis for anticoagulation. Labs done 07/03/2024 showed creatinine 1.30. No bleeding issues reported. Biannual CBC, BMP recommended. Cardiology follow-up in 1 year, sooner if needed (2) S/P placement of cardiac pacemaker: Comment: 01/28/2020 Code(s): Z95.0 - Presence of cardiac pacemaker Category: Surgical Plan: History of complete heart block. She now has [facility] dual-chamber pacemaker in place. Interrogation today shows device is functioning normally. Remote monitoring in use. Next office interrogation due in 1 year. (3) Heart block: Code(s): I45.9 - Conduction disorder, unspecified Category: Medical Plan: As above (4) Essential hypertension: Code(s): I10 - Essential (primary) hypertension Category: Medical Plan: Blood pressure goal less than 130/80. Controlled at this time with blood pressure 130/68. She is on atenolol, Lasix and valsartan. No med changes made today. Low-salt diet and weight loss reviewed. Plan I discussed with the patient her current cardiac status, specifically regarding pacemaker function and AF management, emphasizing the efficacy and longevity of the device. The patient's atenolol therapy remains unchanged, with an understanding of its role in rate control for AF. I reviewed the absence of symptomatic episodes and discussed pacemaker monitoring schedules, ensuring awareness of report protocols for any device or rhythm anomalies. I encouraged vigilance for any extraordinary signs indicative of exacerbating conditions, specifically alterations in dyspnea or signs of heart failure. The patient consented to continue current management, appreciating the balance of therapeutic benefits and her quality of life. We agreed on annual follow-up unless clinical changes occur necessitating a sooner review. Patient Instructions: - Continue current medications as prescribed, including Atenolol and anticoagulation - Engage in regular activity, but adjust pace to comfort - Monitor for any new symptoms, such as increased breathlessness, chest pain, or severe leg swelling - Inform the cardiology clinic of any concerning device alerts - Follow up in one year or sooner if new symptoms develop Patient was informed and verbally consented to the use of an ambient scribe for clinic note documentation during this visit. Visit time spent on chart review, interview, assessment, orders, documentation. Coding Level of Care Code Est Pt Level 4 (24460) Complex EM visit Add On G2211 Diagnoses PAF (paroxysmal atrial fibrillation) I48.0 S/P placement of cardiac pacemaker Z95.0 Heart block I45.9 Essential hypertension I10 CPT Codes Cardiac Device Check - Cardiac Device 2: [id number] Cardiac Device Check, pacemaker dual lead ([id number]) EKG - CPT: 06689-Bazjuhinojlkefjsu, Complete ([id number]) Time Spent (min) 28
[2025-01-21 13:10] VITALS: BP 130/68; PULSE 60; BMI 41.7
== END 2025-01-21 13:35 | disposition home or self-care (01) ==
LOC: HO.HCS 12:48
PROVIDERS: PCP Internal Medicine; Visit Provider Nurse Practitioner Family
DX: I48.0 Paroxysmal atrial fibrillation (principal); Z95.0 Presence of cardiac pacemaker; I45.9 Conduction disorder, unspecified; I10 Essential (primary) hypertension
CPT/HCPCS: 93010; 93280; 99214; G2211

== ENCOUNTER → 2025-01-21 12:48 | Outpatient (BNVA) | payer MEDICARE, SELFPAY | PROVIDERS: PCP Internal Medicine; Visit Provider Nurse Practitioner Family | DX: I10 Essential (primary) hypertension (principal); I48.0 Paroxysmal atrial fibrillation; E78.5 Hyperlipidemia, unspecified; Z45.018 Encounter for adjustment and management of other part of cardiac pacemaker | CPT/HCPCS: 93005; 93280; 99212 ==

== ENCOUNTER → 2025-01-29 23:59 | Outpatient (BNV) | payer MEDICARE, SELFPAY ==
--- NOTE | 2025-01-30 20:41 | A.OFFVIS_ITS ---
Intake Visit Reasons: Remote device check- [facility] Allergies amlodipine [From NORVASC] Allergy (Unknown, Verified 07/10/24 11:52) UNK amoxicillin [AMOXICILLIN] Allergy (Unknown, Verified 07/10/24 11:52) RASH, hives, rash hydralazine Allergy (Unknown, Verified 07/10/24 11:52) rash latex [LATEX] Allergy (Unknown, Verified 07/10/24 11:52) RASH lisinopril Adverse Reaction (Unknown, Verified 07/10/24 11:52) cough Minoxidil Adverse Reaction (Unknown, Uncoded 07/10/24 11:52) hair growth [facility] Medical History COVID-19 vaccination refused History of gout Impaired fasting glucose Anemia CKD (chronic kidney disease) Acquired hypothyroidism History of complete heart block Essential hypertension Dyslipidemia Surgical History S/P placement of cardiac pacemaker Family History Father Substance use disorder Mother No problems noted. Social History Housing: Apartment Alcohol intake: current Alcohol intake frequency: holidays/special occasions only Alcohol type: wine Patient Tobacco Use Status: Never used Tobacco e-Cigarette/Vaping Use: Never Used Current occupational status: retired Cognitive needs: No Hearing needs: No Vision needs: Yes Office Procedures Cardiac Device Check Cardiac Device Check Details: Date of service- 01/29/2025 ; Battery life >4 years; normal lead parameters; AP 77%; INDUSTRIAL ORGANIZATIONAL PSYCHOLOGIST 99%; no significant arrhythmias. Overall normal device function. [id number] Cardiac Device Interrogation, pacemaker Procedure code (CPT) selection complete Assessment & Plan Assessment & Plan (1) S/P placement of cardiac pacemaker: Comment: 01/28/2020 Code(s): Z95.0 - Presence of cardiac pacemaker Category: Surgical (2) Paroxysmal atrial fibrillation: Code(s): I48.0 - Paroxysmal atrial fibrillation Category: Medical (3) History of complete heart block: Code(s): Z86.79 - Personal history of other diseases of the circulatory system Category: Medical Plan x Coding Level of Care Code Procedure Only Diagnoses S/P placement of cardiac pacemaker Z95.0 Paroxysmal atrial fibrillation I48.0 History of complete heart block Z86.79 CPT Codes Cardiac Device Check - Cardiac Device 12: [id number] Cardiac Device Interrogation, pacemaker ([id number])
== END ==
PROVIDERS: PCP Internal Medicine; Visit Provider Internal Medicine
DX: I48.0 Paroxysmal atrial fibrillation (principal); Z95.0 Presence of cardiac pacemaker; Z86.79 Personal history of other diseases of the circulatory system
CPT/HCPCS: 93294

== ENCOUNTER → 2025-04-30 23:59 | Outpatient (BNV) | payer MEDICARE, SELFPAY ==
--- NOTE | 2025-05-08 20:14 | A.OFFVIS_ITS ---
Intake Visit Reasons: Remote device check- [facility] Allergies amlodipine (From NORVASC) Allergy (Unknown, Verified 07/10/24 11:52) UNK amoxicillin (AMOXICILLIN) Allergy (Unknown, Verified 07/10/24 11:52) RASH, hives, rash hydralazine Allergy (Unknown, Verified 07/10/24 11:52) rash latex (LATEX) Allergy (Unknown, Verified 07/10/24 11:52) RASH lisinopril Adverse Reaction (Unknown, Verified 07/10/24 11:52) cough Minoxidil Adverse Reaction (Unknown, Uncoded 07/10/24 11:52) hair growth [facility] Medical History COVID-19 vaccination refused History of gout Impaired fasting glucose Anemia CKD (chronic kidney disease) Acquired hypothyroidism History of complete heart block Essential hypertension Dyslipidemia Surgical History S/P placement of cardiac pacemaker Family History Father Substance use disorder Mother No problems noted. 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 Overall normal device function. [id number] Cardiac Device Interrogation, pacemaker Procedure code (CPT) selection complete Assessment & Plan Assessment & Plan (1) S/P placement of cardiac pacemaker: Comment: 01/28/2020 Code(s): Z95.0 - Presence of cardiac pacemaker Category: Surgical (2) Heart block: Code(s): I45.9 - Conduction disorder, unspecified Category: Medical (3) Paroxysmal atrial fibrillation: Code(s): I48.0 - Paroxysmal atrial fibrillation Category: Medical Plan x Coding Level of Care Code Procedure Only Diagnoses S/P placement of cardiac pacemaker Z95.0 Heart block I45.9 Paroxysmal atrial fibrillation I48.0 CPT Codes Cardiac Device Check - Cardiac Device 12: [id number] Cardiac Device Interrogation, pacemaker ([id number])
== END ==
PROVIDERS: PCP Internal Medicine; Visit Provider Internal Medicine
DX: I45.9 Conduction disorder, unspecified (principal); Z95.0 Presence of cardiac pacemaker; I48.0 Paroxysmal atrial fibrillation
CPT/HCPCS: 93294

== ENCOUNTER 2025-07-11 08:47 | Outpatient (REF) | payer MEDICARE, SELFPAY ==
[2025-07-11 10:15] LABS: MANUAL DIFF FLAG NO
--- OUTSIDE RECORDS SUMMARY | 2025-07-11 10:18 | XMS_ITS ---
Author Organization Unknown ENCOUNTERS Encounter Performer Location Date Diagnosis Diagnosis Status Emergency [address] [id number] *Note: Encounters from your own facility or health system may be excluded. Allergies, Adverse Reactions, Alerts Allergen Type Severity Identification Date lisinopril drug allergy 20211221 amlodipine drug allergy 20211221 Medications Name Date Quantity Days Supplied GPI Number
[2025-07-11 10:25] LABS: Hematocrit 37.5 % (37.0-47.0); Hemoglobin 12.3 g/dl (12.0-16.0); Imm Gran Abs Auto 0.02 X10*3/uL (0.00-0.03); Imm Gran Pct Auto 0.3 % (0.0-0.4); Lymphocytes Absolute Auto 1.6 X10*3/uL (1.2-4.9); Mean Corpuscular HGB Conc 32.8 g/dl (31.0-35.0); Mean Corpuscular Hemoglobin 32.0 pg (27.0-33.0); Mean Corpuscular Volume 97.7 fL (80.0-98.0); NRBC Abs Auto 0.000 X10*3/uL (0.0-0.012); NRBC Pct Auto 0.0 /100WBC (0.0-0.2); Platelet Count 278 X10*3/uL (160-400); Red Blood Count 3.84 X10*6/uL (4.20-5.50); White Blood Count 7.1 X10*3/uL (4.8-10.8)
[2025-07-11 11:03] LABS: Alanine Aminotransferase 25 U/L (0-31); Anion Gap 10 (12-20); Aspartate Amino Transferase 32 U/L (5-31); Blood Urea Nitrogen 28 mg/dL (9-16); Calcium 9.6 mg/dL (8.4-10.2); Carbon Dioxide 29 mmol/L (22-29); Chloride 105 mmol/L (96-108); Cholesterol 173 mg/dL (<200); Estimated Glomerular Filt Rate 35; HDL Cholesterol 62 mg/dL (>40); Potassium 3.8 mmol/L (3.3-5.1); Sodium 140 mmol/L (135-145); Triglycerides 104 mg/dL (<150); Uric Acid 5.4 mg/dL (2.4-5.7)
[2025-07-11 11:08] LABS: Free T4 (Free Thyroxine) 1.17 ng/dL (0.71-1.85); Thyroid Stimulating Hormone 1.05 uIU/mL (0.32-4.0)
== END 2025-07-11 08:48 | disposition home or self-care (01) ==
LOC: HO.HMGCLDS 08:47
PROVIDERS: PCP Internal Medicine; Visit Provider Internal Medicine
DX: I12.9 Hypertensive chronic kidney disease with stage 1 through stage 4 chronic kidney disease, or unspecified chronic kidney disease (principal); N18.9 Chronic kidney disease, unspecified; D63.1 Anemia in chronic kidney disease; I48.0 Paroxysmal atrial fibrillation; E78.5 Hyperlipidemia, unspecified; E03.9 Hypothyroidism, unspecified; R73.01 Impaired fasting glucose; Z87.39 Personal history of other diseases of the musculoskeletal system and connective tissue; Z13.21 Encounter for screening for nutritional disorder
CPT/HCPCS: 36415; 80048; 80061; 82306; 84439; 84443; 84450; 84460; 84550; 85025

== ENCOUNTER 2025-07-22 14:09 | Outpatient (AMB) | payer MEDICARE, SELFPAY ==
--- NOTE | 2025-07-22 14:32 | A.OFFPC_ITS ---
Vital Signs 07/22/25 14:39 Height 5 ft 2 in Weight 238 lb BMI 43.5 BP 130/80 Blood Pressure Location Rt brachial Position Sitting Respiration 16 Pulse 60 Pulse Source Pulse Oximeter Temp 97.8 F Temp Source Oral Pulse Oximetry (%) 96 Oxygen Delivery Method Room Air Intake Visit Reasons: PE - see comments Intake Note: Pt is here today for her PE: Manager Creative Services Required: No Allergies amlodipine (From NORVASC) Allergy (Unknown, Verified 07/22/25 14:54) UNK amoxicillin (AMOXICILLIN) Allergy (Unknown, Verified 07/22/25 14:54) RASH, hives, rash hydralazine Allergy (Unknown, Verified 07/22/25 14:54) rash latex (LATEX) Allergy (Unknown, Verified 07/22/25 14:54) RASH lisinopril Adverse Reaction (Unknown, Verified 07/22/25 14:54) cough Minoxidil Adverse Reaction (Unknown, Uncoded 07/22/25 14:54) hair growth Medication List - Last Reconciled 07/22/25 by Shirlene Clark MD allopurinol 200 mg (2 x 100 mg) PO DAILY 3 months apixaban (Eliquis) 5 mg PO BID atenolol 100 mg PO DAILY furosemide 40 mg PO DAILY levothyroxine 88 mcg PO QAM loratadine (Claritin) 10 mg PO DAILY otrcqwnk-gkq-yfgq-FA-vit K-lut 8 mg iron-400 mcg-50 mcg (Centrum Silver Women) 1 tab PO DAILY simvastatin 40 mg PO QPM valsartan 320 mg PO DAILY vitamins A,C,X-chng-vdbhsp 4,296 mcg-226 mg-90 mg (PreserVision AREDS) 1 cap PO BID Tobacco use date assessed: 07/22/25 Fall risk assessment: No Falls in past year Last assessed Fall Risk: 07/22/25 Dental Screening Dental Screen Date: 07/22/25 Did you have a dental visit in the last 12 months?: No Did you have a dental problem in the last 6 months where you did not have access to dental care?: No Was dental information given to patient?: Patient declined HPI PE - see comments HPI Details 85 year-old female with past medical his tory of hypertension, hyperlipidemia, hypothyroidism, paroxysmal atrial fibrillation, complete heart block status post pacemaker placement who presents for her physical exam. She has been feeling well, compliant with taking her medications, no new complaints at present time. The patient has a history of gout, but reports no flares for almost two years while on allopurinol. The patient manages the diet by limiting some high-uric acid foods like shellfish and cold cuts, but still consumes kielbasa and salmon. The patient is on a blood thinner indefinitely and denies any abnormal bruising, bleeds, or blood in the stool. The patient also takes medication for hypothyroidism at a stable dose, simvastatin for cholesterol, and a generic form of Claritin for allergies as needed. She has been diagnosed to have early macular degeneration and is followed by [facility], taking PreserVision. Kidney function is borderline but has been stable. The patient is not currently followed by a furniture finisher apprentice. The patient has a pacemaker and has a follow-up scheduled with cardiology in January. She reports arthritis in the fingers, noting morning stiffness and deformity in one finger. The patient has a reported weight gain of 10 pounds over the last year, with a current weight of 238 pounds compared to 228 pounds last year. This is attributed to diet, including eating leftovers like apple pie and banana bread after holidays, and a sedentary lifestyle involving mostly sitting, watching television, or using the computer. She has never had a bone density scan or a colonoscopy, and declined getting both today. HPI Comments History of Present Illness Details [facility] Medical History COVID-19 vaccination refused History of gout Impaired fasting glucose Anemia CKD (chronic kidney disease) Acquired hypothyroidism History of complete heart block Essential hypertension Dyslipidemia Surgical History S/P placement of cardiac pacemaker Family History Father Substance use disorder Mother No problems noted. Social History Housing: Apartment Alcohol intake: current Alcohol intake frequency: holidays/special occasions only Alcohol type: wine Patient Tobacco Use Status: Never used Tobacco e-Cigarette/Vaping Use: Never Used Current occupational status: retired Cognitive needs: No Hearing needs: No Vision needs: Yes Questionnaire PHQ-9 Over the last 2 weeks, how often have you been bothered by any of the following problems? 1. Little interest or pleasure in doing things: not at all 2. Feeling down, depressed, or hopeless: not at all 3. Trouble falling or staying asleep, or sleeping too much: not at all 4. Feeling tired or having little energy: not at all 5. Poor appetite or overeating: not at all 6. Feeling bad about yourself - or that you are a failure or have let yourself or your family down: not at all 7. Trouble concentrating on things, such as reading the newspaper or watching television: not at all 8. Moving or speaking so slowly that other people could have noticed. Or the opposite - being so fidgety or restless that you have been moving around a lot more than usual: not at all 9. Thoughts that you would be better off or of hurting yourself in some way: not at all Total score: 0 Depression Screening Interpretation: Negative Depression Screening Done: Yes 45688 - PHQ-9 Billing: Yes Source: Developed by Drs. Bennie Stock, Sherri Joshua, Vitaliy Vu and colleagues, with an educational casper from [employer]. Thrive Questionnaire Date Thrive assessed: 07/22/25 I am a: Patient What is your living situation today?: I have a steady place to live Within the past 12 months, did the food you bought not last and you didn't have the money to get more?: Never true Within the past 12 months, did you worry whether your food would run out before you got money to buy more?: Never true Do you have trouble paying for medicines?: No Do you have trouble getting transportation to medical appointments?: No Do you have trouble paying your heating and electricity bill?: No Do you have trouble taking care of your child, family member or friend?: No Do you have trouble with day-to-day activities such as bathing, preparing meals, shopping, managing finances, etc.?: No Are you currently unemployed and looking for a job?: No Are you interested in more education?: No Please select the resources that you would like help with: None Currently or been in a relationship where the following occur: No concerns reported THRIVE Score: 0 AUDIT C Alcohol Use Questionnaire (AUDIT-C) 1. How often do you have a drink containing alcohol?: 2-4 times a month 2. How many drinks containing alcohol do you have on a typical day when you are drinking?: 1 or 2 3. How often do you have six or more drinks on one occasion?: Never Total Score: 2 Score Reviewed/Action Taken: Yes MURRAY-7 AMB Questionnaire MURRAY-7 Date MURRAY - 7 assessed: 07/22/25 Feeling nervous, anxious, or on edge: 0 = Not at all Not being able to stop or control worryin = Not at all Worrying too much about different things: 0 = Not at all Trouble relaxin = Not at all Being so restless that it is hard to sit still: 0 = Not at all Becoming easily annoyed or irritable: 0 = Not at all Feeling afraid as if something awful might happen: 0 = Not at all Total MURRAY-7 score (0-4 normal; 5-9 mild; 10-14 moderate; 15-21 severe): 0 Source: Developed by Drs. Bennie Stock, Sherri Joshua, Vitaliy uV and colleagues, with an educational casper from [employer]. MURRAY-7 Assessment Billing MURRAY-7 Assessment Tool: MURRAY-7 Assessment 14792 Review of Systems Narrative Const Denies fever(s) Eyes Details: goes to [facility] Reports no additional complaints Card Denies chest pain Resp Denies cough and Denies hemoptysis GI Denies abdominal pain, Denies diarrhea and Denies nausea Reports no additional complaints and Denies urinary incontinence Musc Reports as per HPI and Denies back pain Skin/Breast Denies acne, Denies bleeding lesions, Denies breast skin changes and Denies breast mass Neuro Denies focal weakness Psych Reports no additional complaints Endo Reports no additional complaints Kennedy/Lymph Reports no additional complaints Aller/Immun Reports no additional complaints Physical exam (Primary Care) Vital Signs: Last Vital Signs Temp 97.8 F 07/22/25 14:39 Pulse 60 07/22/25 14:39 Resp 16 07/22/25 14:39 BP 130/80 07/22/25 14:39 Pulse Ox 96 07/22/25 14:39 Oxygen Delivery Method Room Air 07/22/25 14:39 BMI result Body Mass Index 43.5 Tobacco/Smoking Status: Tobacco use Status Tobacco use date assessed 07/22/25 07/22/25 14:42 Patient Tobacco Use Status Never used Tobacco 07/22/25 14:32 e-Cigarette/Vaping Use Never Used 07/22/25 14:32 PHQ-9: PHQ-9 Score PHQ-9: Total score 0 07/28/25 18:17 Depression Screening Interpretation: Negative Thrive Assessment: Date of Thrive Assessment Date Thrive assessed 07/22/25 07/22/25 14:42 Currently or been in a relationship where the following occur: No concerns reported Narrative Const General: comfortable, no acute distress and alert Orientation/consciousness: patient oriented x3 HENMT Ears: TM's normal bilaterally and EAC's normal General nose exam: Normal external nose present Eyes General: appearance normal, both eyes and all related structures Neck Other: Nonpalpable thyroid gland Neck: Yes full ROM, Yes no lymphadenopathy and Yes supple Resp Effort & Inspection: normal respiratory effort and able to speak in complete sentences Auscultation: clear to auscultation bilaterally Cardio Other: S1 and S2 present regular rate and rhythm GI Other: Normal bowel sounds, soft, nontender, no mass palpated General: Yes no CVA tenderness Back/Spine/Pelvis Back: no CVA tenderness and No back tenderness Skin General skin exam: no rashes or lesions noted Neuro General: patient oriented x3, gait normal, tone normal, moves all extremities, Normal light touch and pain sensation, no focal motor deficits and CN's II-XI intact bilaterally Extrem Other: Presence of women deviation fingers and [place] nodes in fingers of both hands General: Yes full ROM, Yes no clubbing, cyanosis or edema, Yes no calf tenderness and Yes normal gait Psych Appearance: grossly normal Mental Status: mental status grossly normal Speech and movement: Normal speech and movement present Affect: normal affect Attitude: cooperative Results Reviewed Results Reviewed: Name: Mita Zapien Age/Sex: 85/F : 1940 Unit#: [id number] Attend Dr: Shirlene Clark MD Re07/11/25 Status: DEP REF Location: [facility] Disch: SPEC : [id number] MAREN: 07/11/25 STATUS: COMP REQ : [id number] RECD: 07/11/[address] [facility] [address]: Shirlene Clark MD COMP: 07/11/25 ENTERED: 07/11/[address] [facility] DR: ORDERED: Met Prof Fast, Uric, AST, ALT, Lipid Panel, Vitamin D 25-OH, Free T4, TS Test Result Flag Reference Sodium 140 135-145 mmol/L Potassium 3.8 3.3-5.1 mmol/L CL 105 96-108 mmol/L CO2 29 22-29 mmol/L Gap 10 L 12-20 BUN 28 H 9-16 mg/dL Creat 1.41 H 0.5-1.4 mg/dL eGFR 35 Chronic Kidney Disease: Estimated GFR < 60 mL/min/1.73m2 Severe Kidney Disease: Estimated GFR < 15 mL/min/1.73m2 FBS 107 H 60-99 mg/dL A fasting glucose from 100-125 mg/dl is considered impaired (pre-diabetes). Uric Acid 5.4 2.4-5.7 mg/dL CA 9.6 8.4-10.2 mg/dL AST (GOT) 32 H 5-31 U/L ALT (GPT) 25 0-31 U/L Triglyceride 104 <150 mg/dL Desirable Triglyceride: less than 150 mg/dL Borderline High Triglyceride 150-199 mg/dL High Triglyceride: 200-499 mg/dL Very High Triglyceride: greater than or equal to 5OO mg/dL Cholesterol 173 <200 mg/dL Desirable Cholesterol: less than 200 mg/dL Borderline High Cholesterol: 200-239 mg/dL High Cholesterol: greater than 239 mg/dL LDL Calculated 91 <100 mg/dL Desirable LDL: less than 100 mg/dL Near Optimal/Above Optimal LDL: 110-129 mg/dL Borderline High LDL: 130-159 mg/dL High LDL: 160-189 mg/dL Very High LDL: greater than or equal to 190 mg/dL HDL 62 >40 mg/dL Desirable HDL: greater than 40 mg/dL Note: This HDL assay may give artificially low results in patients with liver disease. Vitamin D 25-OH 63.7 >30 ng/mL Health Based Reference Values* < 20 ng/mL Deficient 20-30 ng/mL Insufficient > 30 ng/mL Sufficient *Rachna STEWART. N Engl J Med. 2007;357:266-280 There is no well-established upper level of normal vitamin D levels. Some laboratories use 50 ng/mL as an upper limit of normal. However, toxicity is patient-dependent and may occur at any level. Careful correlation with the patient's presentation is necessary and, if there is concern for vitamin D toxicity, treatment should be considered irrespective of the serum level. Care must be taken in interpreting Vitamin D results from different laboratories and methodologies. Published data demonstrated that results from patients undergoing hemodialysis may show a negative bias when tested with various automated 25-OH vitamin D assays when compared to LC-MS/MS. When testing samples from patients whose predominant form of Vitamin D is Vitamin D2, such as patients receiving Vitamin D2 supplementation, results that are subtherapeutic should be confirmed with another method such as LC-MS/MS. Free T4 1.17 0.71-1.85 ng/dL TSH 3rd Gen. 1.05 0.32-4.0 uIU/mL TSH 3rd Generation ([facility]) Coding Level of Care Code Est Pt Prev Care >65y(62365) Diagnoses History of gout Z87.39 Impaired fasting glucose R73.01 CKD (chronic kidney disease) N18.9 Essential hypertension I10 Paroxysmal atrial fibrillation I48.0 Dyslipidemia E78.5 Acquired hypothyroidism E03.9 Annual visit for general adult medical examination with abnormal findings Z00.01 Additional Codes MURRAY-7 Assessment Billing - MURRAY-7 Assessment Tool: MURRAY-7 Assessment 27716 ([id number]) PHQ-9 - 18988 - PHQ-9 Billing: Yes ([id number]) Assessment & Plan Assessment & Plan (1) History of gout: Code(s): Z87.39 - Personal history of other diseases of the musculoskeletal system and connective tissue Category: Medical (2) Impaired fasting glucose: Code(s): R73.01 - Impaired fasting glucose Category: Medical (3) CKD (chronic kidney disease): Code(s): N18.9 - Chronic kidney disease, unspecified Category: Medical (4) Essential hypertension: Code(s): I10 - Essential (primary) hypertension Category: Medical (5) Paroxysmal atrial fibrillation: Code(s): I48.0 - Paroxysmal atrial fibrillation Category: Medical (6) Dyslipidemia: Code(s): E78.5 - Hyperlipidemia, unspecified Category: Medical (7) Acquired hypothyroidism: Code(s): E03.9 - Hypothyroidism, unspecified Category: Medical (8) Annual visit for general adult medical examination with abnormal findings: Code(s): Z00.01 - Encounter for general adult medical examination with abnormal findings Plan Plan Patient was informed and verbally consented to the use of an ambient scribe for clinic note documentation during this visit. 1. Gout The patient's gout is well-controlled on allopurinol, with no reported flares in nearly two years. Recent labs show a normal uric acid level. Continue current medication and dietary management. 2. Obesity And Hyperglycemia The patient has gained 10 pounds in the last year, and recent labs show a blood glucose of 107 mg/dL. This is attributed to a diet high in carbohydrates and a sedentary lifestyle. Counseled on dietary moderation, increased water intake, and incorporating home-based exercises such as chair exercises available on local television. 3. Chronic Kidney Disease The patient has stable, borderline kidney function, which has slightly declined since previous labs. Advised that worsening kidney function can affect blood pressure. Recommended increasing water intake to help flush the kidneys. The patient does not currently have a furniture finisher apprentice. 4. Essential hypertension Blood pressure at goal of less than 130/80. Continue with valsartan, atenolol, furosemide. Reinforced importance of following a low sodium diet, getting regular exercise, and lowering stress levels. 5. Paroxysmal atrial fibrillation Continue apixaban 5 mg twice a day 6. Dyslipidemia Reviewed recent fasting lipid profile with patient with levels . Continue simvastatin 40 mg at bedtime , in addition to adherence to low-cholesterol diet and regular exercise, at least 30 minutes 3 to 4 times a week. Advised patient to make healthy food choices, eat more fruits, vegetables, whole grains, wild caught fish and low-fat dairy. Limit amount of meat and fried or fatty food products, as well as processed foods and fast foods. 7.Acquired hypothyroidism Continue with current dose of levothyroxine 88 mcg daily in the morning 8.Osteoarthritis For arthritis pain and stiffness in the finger, recommended using topical warming ointments, such as Bengay, for symptomatic relief. Also discussed that reducing sugar intake can help decrease inflammation. 9. Annual visit for general adult exam with a normal findings. - Be careful to avoid falls, especially when it is icy outside. - Remember to check yourself for ticks after being outdoors. - Consider getting the new pneumonia vaccine in the spring. - Keep your appointment with your heart doctor in January to check your pacemaker. - Schedule an appointment to return to this office for a check-up next year around July. -declined getting bone density scans, declined colon cancer screenings and patient stopped getting breast cancer screenings
[2025-07-22 14:39] VITALS: BP 130/80; PULSE 60; RESP 16; TEMP 36.6; O2SAT 96; BMI 43.5
== END 2025-07-22 15:28 | disposition home or self-care (01) ==
LOC: HO.HMCC 14:09
PROVIDERS: PCP Internal Medicine; Visit Provider Internal Medicine
DX: Z87.39 Personal history of other diseases of the musculoskeletal system and connective tissue (principal); R73.01 Impaired fasting glucose; N18.9 Chronic kidney disease, unspecified; I12.9 Hypertensive chronic kidney disease with stage 1 through stage 4 chronic kidney disease, or unspecified chronic kidney disease; I48.0 Paroxysmal atrial fibrillation; E78.5 Hyperlipidemia, unspecified; E03.9 Hypothyroidism, unspecified; Z00.01 Encounter for general adult medical examination with abnormal findings

== ENCOUNTER → 2025-07-22 14:09 | Outpatient (BNVA) | payer MEDICARE, SELFPAY | PROVIDERS: PCP Internal Medicine; Visit Provider Internal Medicine | DX: Z00.01 Encounter for general adult medical examination with abnormal findings (principal); M10.9 Gout, unspecified; R73.01 Impaired fasting glucose; N18.9 Chronic kidney disease, unspecified; I10 Essential (primary) hypertension; E66.9 Obesity, unspecified; I48.0 Paroxysmal atrial fibrillation; E78.5 Hyperlipidemia, unspecified; E03.9 Hypothyroidism, unspecified; Z13.31 Encounter for screening for depression; Z13.39 Encounter for screening examination for other mental health and behavioral disorders; Z79.899 Other long term (current) drug therapy; M15.9 Polyosteoarthritis, unspecified | CPT/HCPCS: 96127; 99397 ==

== ENCOUNTER → 2025-08-12 12:36 | Outpatient (BNV) | payer MEDICARE, SELFPAY | PROVIDERS: PCP Internal Medicine; Visit Provider Internal Medicine | DX: I48.0 Paroxysmal atrial fibrillation (principal); I45.9 Conduction disorder, unspecified | CPT/HCPCS: 93294 ==

== ENCOUNTER 2025-08-17 10:34 | Inpatient (IN) | payer MEDICARE, SELFPAY ==
[2025-08-17] VITALS (11 sets, daily range): BP systolic 106–185; BP diastolic 55–108; PULSE 67–96; RESP 16–40; TEMP 36.5–39.4; O2SAT 81–100; BMI 45.9; BMI 44.1
--- NOTE | ~2025-08-17 | CT_ITS ---
CLINICAL HISTORY: b l consolidations pna vs fluid CT chest without contrast Comparison: CR - XR CHEST 1V - 08/17/25 10:53 EST Findings: Images mildly degraded by respiratory motion. Small bilateral pleural effusions. Areas of hazy density are seen within the lower lobes bilaterally with more focal consolidation in the juxtapleural location within the dependent lower lobes. No pneumothorax. Ydnq-zh-vlaaoerg [place] chamber cardiac dilation. Tiny foci of air seen along the anterior aspect of the right ventricle, likely related to intravenous access. Multifocal vascular calcification involving the thoracic aorta and coronary arteries. Left-sided pacemaker with right atrial and right ventricular pacer leads. Pathologically enlarged lymph nodes are seen given the inherent limitation of the noncontrast study. Small hiatal hernia. Dependent calcified gallstones measure up to 1 cm in size. No gallbladder wall thickening or pericholecystic fluid Degenerative change throughout the visualized thoracolumbar spine without acute bony abnormality. IMPRESSION: 1. Findings most characteristic of congestive heart failure. The appearance is not highly suggestive of pneumonia. 2. Additional findings include cholelithiasis and hiatal hernia. This document has been electronically signed by: John Vance MD on 08/17/2025 14:03:26
--- NOTE | ~2025-08-17 | XR_ITS ---
CLINICAL HISTORY: sob 1 view chest x-ray Comparison: None provided Findings: Portions of the exam are obscured by overlying material. There is bilateral consolidation, possible pneumonia or pulmonary edema. Heart size is normal. Cardiac pacemaker leads possibly in the right atrium and ventricular apex. No acute fracture. IMPRESSION: 1. Bilateral consolidation, differential considerations noted. This document has been electronically signed by: Fausto Fox MD on 08/17/2025 11:13:51
--- NOTE | 2025-08-17 10:50 | ED_ITS ---
HPI - SOB/Dyspnea General Chief Complaint: Dyspnea Stated Complaint: WEAKNESS DIFFICULTY BREATHING Time Seen by Provider: 08/17/25 10:42 Source: patient and EMS Mode of arrival: EMS Limitations: no limitations History of Present Illness ED Provider: DANY Ansari HPI Narrative: Chief Complaint: ?I feel shitty and I?m short of breath.? History of Present Illness: This is an 85-year-old female with a complex medical history including paroxysmal atrial fibrillation (on apixaban), chronic kidney disease, anemia, hypothyroidism, hypercalcemia, gout, complete heart block (status post pacemaker), hypertension, and dyslipidemia. She presented via ambulance from home for evaluation of progressive shortness of breath, cough, and generalized malaise that began on (Tuesday). She was recently diagnosed with a urinary tract infection at an outside facility on Tuesday and prescribed a 14- pill course of antibiotics, of which she has taken 5 pills. She reports that her symptoms of feeling shitty and increased dyspnea began after starting the antibiotics, leading to incomplete adherence. She describes her breathing as very high and notes significant worsening of shortness of breath, with oxygen saturation measured at 80% on room air by EMS, improved with 4 L O2 via nasal cannula. She denies chest pain, nausea, vomiting, or sick contacts, but reports expectorating bile. She has marked lower extremity edema/anasarca from the waist down, which she states is at her baseline. The symptoms have impacted her ability to perform daily activities, prompting EMS activation and ED evaluation. No history of congestive heart failure. No recent travel or exposure to ill contacts. No history of colorectal cancer or recent GI bleeding. Patient anticoagulant apixaban for atrial fibrillation. Sepsis alert called on arrival 10:45 am Related Data Home Medications ?Medication ?Instructions ?Recorded ?Confirmed vitamins A,C,E-tbsa-ajupmu 4,296 1 cap PO BID 11/13/21 08/17/25 mcg-226 mg-90 mg capsule (PreserVision AREDS) fynemsjx-qwuw-tsvs 8 mg-folic 400 1 tab PO DAILY 06/2808/17/25 mcg-K 50 mcg-lutein 300 mcg tablet (Centrum Silver Women) loratadine 10 mg tablet (Claritin) 10 mg PO DAILY 09/1508/17/25 cholecalciferol (vitamin D3) 50 50 mcg PO DAILY 08/17/25 mcg (2,000 unit) tablet (Vitamin D3) flaxseed oil 1,000 mg capsule 1,000 mg PO DAILY 08/17/25 Previous Rx's ?Medication ?Instructions ?Recorded atenolol 100 mg tablet 100 mg PO DAILY #90 tabs apixaban 5 mg tablet (Eliquis) 5 mg PO BID #180 tabs 0 12/28/24 levothyroxine 88 mcg tablet 88 mcg PO QAM #90 tabs valsartan 320 mg tablet 320 mg PO DAILY #90 tabs allopurinol 100 mg tablet 200 mg (2 x 100 mg) PO DAILY 3 06/11/25 months #180 tabs simvastatin 40 mg tablet 40 mg PO QPM #90 tabs furosemide 40 mg tablet 40 mg PO DAILY #90 tabs 03/15 Allergies Allergy/AdvReac Type Severity Reaction Status Date / Time amlodipine (From [facility]) Allergy Unknown UNK Verified 07/22/25 14:54 amoxicillin (AMOXICILLIN) Allergy Unknown RASH, Verified 07/22/25 14:54 hives, rash hydralazine Allergy Unknown rash Verified 07/22/25 14:54 latex (LATEX) Allergy Unknown RASH Verified 07/22/25 14:54 Penicillins Allergy Rash Verified 08/17/25 10:42 lisinopril AdvReac Unknown cough Verified 07/22/25 14:54 Minoxidil AdvReac Unknown hair growth Uncoded 07/22/25 14:54 Review of Systems 2 Review of Systems: Review of Systems: * Constitutional: Positive for malaise, feeling shitty, fatigue. Denies fever, chills, weight loss. * Respiratory: Positive for shortness of breath, cough. Denies hemoptysis, wheezing, pleuritic chest pain. * Cardiovascular: Denies chest pain, palpitations, syncope. History of atrial fibrillation and pacemaker. * Gastrointestinal: Denies nausea, vomiting, diarrhea, hematochezia, melena. Reports expectorating bile. * Genitourinary: History of recent UTI. Denies dysuria, hematuria, flank pain. * Musculoskeletal: Positive for chronic lower extremity edema/anasarca. Denies acute joint pain, myalgias. * Neurological: Denies headache, dizziness, focal weakness, numbness, confusion. * Skin: Positive for lower extremity edema. Denies rash, ulcers, wounds. * Endocrine: History of hypothyroidism. Denies polydipsia, polyuria. * Hematologic: History of anemia. Denies easy bruising, bleeding. * Psychiatric: Denies depression, anxiety, suicidal ideation. Yes all other systems are reviewed and are negative PMFSH Past Medical History Attestation statement: The following information was validated with the patient. Source: old records reviewed and nursing notes reviewed Medical History COVID-19 vaccination refused History of gout Impaired fasting glucose Anemia CKD (chronic kidney disease) Acquired hypothyroidism History of complete heart block Essential hypertension Dyslipidemia Surgical History S/P placement of cardiac pacemaker Family History Family History Father Substance use disorder Mother No problems noted. Social History Social History Housing: Apartment Alcohol intake: current Alcohol intake frequency: holidays/special occasions only Alcohol type: wine Patient Tobacco Use Status: Never used Tobacco Smoked in Last 30 Days: No e-Cigarette/Vaping Use: Never Used Use of substances other than those prescribed or required for medical reasons: No Advance Directives: No Advance Directives Information Provided: Yes Current occupational status: retired Cognitive needs: No Hearing needs: No Vision needs: Yes Physical Exam 2 Exam: Exam: Physical Exam: * General: Elderly female on stretcher, appears ill, fatigued, and in mild respiratory distress. * HEENT: Normocephalic, atraumatic. Oropharynx clear. No scleral icterus, no conjunctival pallor. Mucous membranes moist. * Cardiovascular: Rapid rate and rythem around 100 bpm No murmurs, rubs, or gallops. No jugular venous distention. No peripheral cyanosis. * Respiratory: Crackles bibasilar bilaterally on auscultation. No wheezing. Respiratory effort increased. Receiving 4 L O2 via nasal cannula. * Gastrointestinal: Abdomen soft, non-distended, non-tender. No rebound or guarding. No hepatosplenomegaly. * Genitourinary: No suprapubic or costovertebral angle tenderness. No visible hematuria. * Musculoskeletal: Marked lower-extremity edema/anasarca from the waist down, chronic per patient. No acute joint swelling or deformity. * Neurological: Alert and oriented x3. No focal deficits. No tremor. Global weakness * Skin: Lower extremities with pitting edema. No rashes, ulcers, or wounds. * Psychiatric: Mood appropriate, cooperative, no acute distress or agitation. Vital Signs: Vital Signs: Last Vital Signs Temp 97.7 F 08/17/25 15:02 Pulse 70 08/17/25 15:02 Resp 26 H 08/17/25 15:02 BP 117/64 08/17/25 15:02 Pulse Ox 97 08/17/25 15:02 O2 Del Method Nasal Cannula 08/17/25 15:02 O2 Flow Rate 2 08/17/25 15:02 BMI result Body Mass Index 45.9 vss Course Reevaluation(s) Reevaluation #1: CBC with leukocytosis 12.7 and left shift. Patient's temperature noted to be elevated 102.6, IV Tylenol has been ordered. I did ask nursing to stop the fluids for now as she does have bibasilar crackles and I am concerned that she maybe overloaded. Difficult to tell as patient's lips are dry and appears clinically dry however significant crackles on exam will wait for imaging and laboratory studies. Time: 11:15 Reevaluation #2: Chemistry with chronically elevated BUN and creatinine appears to be around her baseline. Lactic acid is 2.5 troponin 445.2 I suspect this is the type B injury secondary to demand. NT pro BNP 65871. Influenza type a positive. Patient and family members aware of this. Repeat EKG nonischemic. Initial EKG also nonischemic however I wanted to repeat. Time: 12:24 Reevaluation #3: Troponin up trending, my colleague obtained the critical result in nearly tripled, EKG remains pretty unchanged. Cardiology thinks this maybe an NSTEMI in the setting of acute viral illness/influenza. Heparin was initiated. Patient to be admitted Time: 14:22 Additional Reevaluation(s): Plan is hospital admission- hold heparin drip until 7 per pharmacy protocol as patient had her eliquis this am Medications Administered Discontinued Medications Generic Name Dose Route Start Last Admin Trade Name Freq PRN Reason Stop Dose Admin Albuterol Sulfate 5 mg/ 0 mg 08/17/25 10:59 08/17/25 11:03 Albuterol/Ipratropium 3 ml INHALE 08/17/25 11:00 1 each ONCE ONE Administration Furosemide 20 mg 08/17/25 14:33 08/17/25 15:02 Furosemide 20 Mg/2 Ml Vial IVPUSH 08/17/25 14:34 20 mg ONCE ONE Administration Protocol Ceftriaxone Sodium 1 gm/ 50 mls @ 100 mls/hr 08/17/25 10:49 08/17/25 11:39 Sodium Chloride IV 08/17/25 11:18 Infused ONCE ONE Infusion Sodium Chloride 3,417 mls @ 3,417 mls/hr 08/17/25 10:49 08/17/25 11:11 Ns 30 ml/kg infuse over 1 hr (3417 ml) 08/17/25 11:48 Infused IV Infusion .Q1H STA Acetaminophen 1,000 mg in 100 mls @ 400 mls/hr 08/17/25 11:11 08/17/25 12:00 Ofirmev IV 08/17/25 11:25 Infused ONCE ONE Infusion Medical Decision Making Medical Decision Making MDM Narrative: Assessment & Plan - Elderly female with multiple comorbidities (atrial fibrillation, CKD, anemia, hypothyroidism, hypercalcemia, gout, complete heart block with pacemaker, hypertension, dyslipidemia) presenting with acute hypoxemia, shortness of breath, and malaise following incomplete antibiotic course for UTI. Sepsis alert activated by this PA-C on arrival. High medical complexity due to age, comorbidities, and risk for rapid decompensation. Critical care time initiated for active management of sepsis and hypoxemia. Problem #1: Acute shortness of breath / Hypoxemia Assessment: Onset since 08/14 with O2 saturation 80% on room air, improved with supplemental oxygen. Differential includes pneumonia, urosepsis, acute heart failure exacerbation, pulmonary embolism (less likely due to anticoagulation), and acute COPD/asthma exacerbation. Risk stratification: High risk for respiratory failure and multi-organ dysfunction given age and comorbidities. Plan: * Continue supplemental oxygen; titrate to maintain SpO2 >92%. * Cardiac monitoring. * Diagnostic work-up: CBC, BMP, troponin, BNP, blood cultures, chest X-ray, EKG, urinalysis, urine culture, lactate, procalcitonin. * Empiric broad-spectrum antibiotics initiated for possible sepsis. * IV fluids for hemodynamic support. * Consultation with internal medicine for admission and ongoing management. * Sepsis bundle initiated per protocol. * Critical care time documented for active management of sepsis and hypoxemia. Problem #2: Urinary tract infection (on antibiotics) Assessment: Diagnosed Tuesday at outside facility; patient has taken 5/14 prescribed doses and did not finish the antibiotics. Concern for incomplete treatment and possible progression to urosepsis. Plan: * Review outside antibiotic choice and adherence. * Obtain urinalysis and urine culture to guide therapy. * Continue empiric antibiotics pending culture results. * Monitor for signs of systemic infection and organ dysfunction. Problem #3: Paroxysmal atrial fibrillation on apixaban Assessment: Chronic condition; currently anticoagulated. No evidence of acute arrhythmia or decompensation at this time. Plan: * Continue apixaban. * Monitor cardiac rhythm and rate. * EKG to assess for arrhythmia or ischemia. Problem #4: Chronic kidney disease Assessment: Baseline CKD (stage not specified). Increased risk for acute kidney injury in setting of sepsis and possible volume depletion. Plan: * Monitor renal function with BMP. * Adjust medications as needed for renal function. * Monitor urine output. Problem #5: Anemia Assessment: Chronic anemia, etiology unspecified. Risk for worsening anemia in setting of infection and possible sepsis. Plan: * CBC pending to assess current level. * Monitor for acute blood loss or hemolysis. Additional Chronic Conditions: History of complete heart block (with pacemaker), hypertension, dyslipidemia, gout, hypercalcemia. Continue home management; reassess as needed during admission. Monitor for exacerbation of chronic conditions in setting of acute illness. Procedures Performed: * IV placement for medication and fluid administration. * EKG performed and interpreted. * Sepsis bundle initiated (includes labs, cultures, antibiotics, fluids(+/-) , monitoring). Patient did receive 500 cc NS prior to arrival by EMS * Critical care time documented for management of sepsis and hypoxemia. Medical Decision-Making: High complexity due to advanced age, multiple comorbidities, acute hypoxemia, and risk for rapid deterioration. Management guided by sepsis protocol, risk of multi-organ dysfunction, and need for critical care interventions. Differential diagnosis includes pneumonia, urosepsis, acute heart failure, and less likely PE. Justification for high-level interventions includes hypoxemia, hemodynamic instability, and concern for sepsis. Differential Diagnosis Differential Diagnoses: The differential diagnosis associated with the presentation includes Differential Diagnosis * Pneumonia: Patient presents with acute hypoxemia, bibasilar crackles on exam, cough, and recent infection, all of which are classic features of pneumonia. Elderly patients are at increased risk for atypical presentations and rapid progression. * Urosepsis: Recent diagnosis of UTI with incomplete antibiotic course, now with systemic symptoms (malaise, hypoxemia, shortness of breath) and concern for progression to sepsis. Elderly and immunocompromised patients are at higher risk for urosepsis and multi-organ dysfunction. * Acute heart failure exacerbation: Marked anasarca from the waist down, bibasilar crackles, history of complete heart block with pacemaker, and hypertension raise concern for possible acute decompensated heart failure, even in the absence of a prior CHF diagnosis. * Pulmonary embolism: Acute hypoxemia and shortness of breath could be due to PE; however, patient is anticoagulated with apixaban, making this less likely but not impossible, especially in the setting of multiple comorbidities. * Acute COPD/asthma exacerbation: History of respiratory symptoms and cough, but no prior diagnosis of COPD or asthma. Elderly patients may have undiagnosed obstructive lung disease contributing to acute symptoms. * Medication reaction/adverse effect: Recent initiation of antibiotics for UTI; possible adverse drug reaction or side effect contributing to malaise, hypoxemia, or respiratory symptoms. * Acute anemia: Chronic anemia with possible acute worsening in the setting of infection, sepsis, or other underlying process, which may contribute to hypoxemia and fatigue. * Metabolic derangement: Chronic kidney disease and hypercalcemia may predispose to metabolic disturbances, which can present with malaise, respiratory symptoms, and altered mental status. * Other causes: Viral infection (e.g., influenza, COVID-19), aspiration event, or arrhythmia (history of atrial fibrillation and pacemaker) may also contribute to the acute presentation and should be considered. Each diagnosis above is supported by the patient's clinical presentation, history, and risk factors. The differential is broad due to the patient's advanced age, multiple comorbidities, and high risk for rapid decompensation. Ongoing diagnostic work-up and close monitoring are warranted to clarify the etiology and guide management. Admission/Observation Consideration of admission/observation: Escalation of care including admission/observation considered Disposition: Anticipate admission to hospital for ongoing management of sepsis, hypoxemia, and comorbidities. Rationale: High risk for clinical deterioration, need for close monitoring, and advanced interventions. Internal medicine consult requested for admission and further management. Consult Healthcare Provider Management of the patient was discussed with: Hospitalist Lab Data MDM Lab Attestation statement: I reviewed the patient's lab results. 08/17/25 14:18 08/17/25 10:59 Labs: Lab Results 08/17/25 08/17/25 08/17/25 Range/Units 10:59 11:08 12:52 WBC 12.7 H (4.8-10.8) X10*3/uL RBC 3.67 L (4.20-5.50) X10*6/uL Hgb 11.6 L (12.0-16.0) g/dl Hct 34.8 L (37.0-47.0) % MCV 94.8 (80.0-98.0) fL MCH 31.6 (27.0-33.0) pg MCHC 33.3 (31.0-35.0) g/dl RDW 13.5 (11.0-16.0) % Plt Count 239 (160-400) X10*3/uL MPV 10.3 (9.4-12.3) fL Immature Gran % (Auto) 0.3 (0.0-0.4) % Neut % (Auto) 81.2 H (45-73) % Lymph % (Auto) 9.1 L (20-40) % [place] % (Auto) 9.2 (2-11) % Eos % (Auto) 0.0 (0-4) % Baso % (Auto) 0.2 (0-2) % Lymph # (Auto) 1.2 (1.2-4.9) X10*3/uL [place] # (Auto) 1.2 (0.1-1.2) X10*3/uL Eos # (Auto) 0.0 (0.0-0.4) X10*3/uL Baso # (Auto) 0.0 (0.0-0.2) X10*3/uL Abs Immat Gran (auto) 0.04 H (0.00-0.03) X10*3/uL Absolute Neuts (auto) 10.3 H (2.0-8.3) x10*3/uL Absolute Nucleated RBC 0.000 (0.0-0.012) X10*3/uL Nucleated RBC % (auto) 0.0 (0.0-0.2) /100WBC PT 22.8 H (11.2-13.5) SEC INR 1.9 H (0.9-1.1) aPTT Heparin Protocol (53-77.9) SEC VBG pH 7.40 (7.32-7.43) VBG pCO2 29 mmHg VBG pO2 66 mmHg VBG HCO3 18 L (22-26) mmol/L VBG O2 Saturation 91.0 % VBG Base Excess -4.6 mmol/L Sodium 137 (135-145) mmol/L Potassium 4.2 (3.3-5.1) mmol/L Chloride 106 (96-108) mmol/L Carbon Dioxide 17 L (22-29) mmol/L Anion Gap 18 (12-20) BUN 25 H (9-16) mg/dL Creatinine 1.31 (0.5-1.4) mg/dL Estim Creat Clear Calc 36.7 Estimated GFR 38 Random Glucose 182 H (60-115) mg/dL Lactic Acid 2.5 H* (0.5-2.0) mmol/L Lactic Acid F/U @ 2Hr (0.5-2.0) mmol/L Calcium 8.8 D (8.4-10.2) mg/dL Magnesium 1.9 (1.6-2.6) mg/dL Total Bilirubin 0.4 (0.0-1.0) mg/dL AST 49 H (5-31) U/L ALT 25 (0-31) U/L Alkaline Phosphatase 90 (39-117) U/L Troponin I High Sens 445.2 H* 1494.1 H* D (<3.5-17.0) ng/L NT-Pro-B Natriuret Pep 44374.0 H (<300) pg/mL Total Protein 6.7 (6.5-8.0) g/dL Albumin 4.2 (3.5-5.0) g/dL Urine Color Urine Appearance Urine pH (5.0-9.0) Ur Specific [place] (1.005-1.025) Urine Protein (Neg-Trace) mg/dL Urine Glucose (UA) (Negative) mg/dL Urine Ketones (Negative) mg/dL Urine Blood (Negative) Urine Nitrite (Negative) Ur Leukocyte Esterase (Negative) Influenza Type A (PCR) POSITIVE A (Negative) Influenza Type B (PCR) NEGATIVE (Negative) RSV RNA Qual (PCR) NEGATIVE (Negative) SARS-CoV-2 RNA (RT-PCR) NEGATIVE (Negative) 08/17/25 08/17/25 08/17/25 Range/Units 13:28 14:18 15:12 WBC 10.8 (4.8-10.8) X10*3/uL RBC 3.44 L (4.20-5.50) X10*6/uL Hgb 10.9 L (12.0-16.0) g/dl Hct 32.2 L (37.0-47.0) % MCV 93.6 (80.0-98.0) fL MCH 31.7 (27.0-33.0) pg MCHC 33.9 (31.0-35.0) g/dl RDW 13.7 (11.0-16.0) % Plt Count 204 (160-400) X10*3/uL MPV 9.7 (9.4-12.3) fL Immature Gran % (Auto) (0.0-0.4) % Neut % (Auto) (45-73) % Lymph % (Auto) (20-40) % [place] % (Auto) (2-11) % Eos % (Auto) (0-4) % Baso % (Auto) (0-2) % Lymph # (Auto) (1.2-4.9) X10*3/uL [place] # (Auto) (0.1-1.2) X10*3/uL Eos # (Auto) (0.0-0.4) X10*3/uL Baso # (Auto) (0.0-0.2) X10*3/uL Abs Immat Gran (auto) (0.00-0.03) X10*3/uL Absolute Neuts (auto) (2.0-8.3) x10*3/uL Absolute Nucleated RBC 0.000 (0.0-0.012) X10*3/uL Nucleated RBC % (auto) 0.0 (0.0-0.2) /100WBC PT 22.1 H (11.2-13.5) SEC INR 1.8 H (0.9-1.1) aPTT Heparin Protocol 30.3 L (53-77.9) SEC VBG pH (7.32-7.43) VBG pCO2 mmHg VBG pO2 mmHg VBG HCO3 (22-26) mmol/L VBG O2 Saturation % VBG Base Excess mmol/L Sodium (135-145) mmol/L Potassium (3.3-5.1) mmol/L Chloride (96-108) mmol/L Carbon Dioxide (22-29) mmol/L Anion Gap (12-20) BUN (9-16) mg/dL Creatinine (0.5-1.4) mg/dL Estim Creat Clear Calc Estimated GFR Random Glucose (60-115) mg/dL Lactic Acid (0.5-2.0) mmol/L Lactic Acid F/U @ 2Hr 1.6 (0.5-2.0) mmol/L Calcium (8.4-10.2) mg/dL Magnesium (1.6-2.6) mg/dL Total Bilirubin (0.0-1.0) mg/dL AST (5-31) U/L ALT (0-31) U/L Alkaline Phosphatase (39-117) U/L Troponin I High Sens (<3.5-17.0) ng/L NT-Pro-B Natriuret Pep (<300) pg/mL Total Protein (6.5-8.0) g/dL Albumin (3.5-5.0) g/dL Urine Color Yellow Urine Appearance Clear Urine pH 5.0 (5.0-9.0) Ur Specific [place] 1.025 (1.005-1.025) Urine Protein Trace (Neg-Trace) mg/dL Urine Glucose (UA) Negative (Negative) mg/dL Urine Ketones Trace (Negative) mg/dL Urine Blood Moderate (2+) H (Negative) Urine Nitrite Negative (Negative) Ur Leukocyte Esterase Negative (Negative) Influenza Type A (PCR) (Negative) Influenza Type B (PCR) (Negative) RSV RNA Qual (PCR) (Negative) SARS-CoV-2 RNA (RT-PCR) (Negative) Independent Interpretation I performed an independent interpretation of an: EKG (Vent. Rate : 79 BPM Atrial Rate : 79 BPM P-R Int : 212 ms QRS Dur : 156 ms QT Int : 430 ms P-R-T Axes : 38 -67 84 degrees QTcB Int : 493 ms Atrial- sensed ventricular-paced rhythm with prolonged AV conduction Abnormal ECG When compared with ECG of 17-Aug-2025 10:59, ) and Plain X-Ray Radiology Impression Discussion of test interpretation with radiology: I have reviewed the radiologist's reading. Independent Historian Clinical information obtained from an independent historian. History obtained from or confirmed by: EMS External Record Review External record reviewed: Inpatient record, Office record, Outpatient record, Prior outpatient labs, Prior outpatient radiology, Primary care record and Outside ED record Chronic Conditions Patient?s care impacted by: Other (see hpi ) Critical Care Time Critical Care Time Critical Care Time: Yes Total Critical Care Time: 45 Attestation: Critical care time: A total of 30 minutes was spent providing direct critical care to this patient. Interventions included active management of sepsis, hypoxemia, hemodynamic instability, and risk for multi-organ dysfunction. The patient met criteria for critical illness, requiring high-complexity medical decision-making and continuous monitoring consistent with CMS and ACEP guidelines for emergency medicine critical care billing and compliance. All time was exclusively devoted to the care of this critically ill patient and did not overlap with care of other patients. Discharge Plan Discharge Clinical Impression: Non-ST elevation AL (NSTEMI), Hypoxia, Influenza Patient Disposition: Admitted As Inpatient Print Language: Maori
--- NOTE | 2025-08-17 10:55 | ECG_ITS ---
Test Reason : DYSPNEA Blood Pressure : */* mmHG Vent. Rate : 92 BPM Atrial Rate : 92 BPM P-R Int : 202 ms QRS Dur : 158 ms QT Int : 406 ms P-R-T Axes : 61 -67 83 degrees QTcB Int : 502 ms Atrial-sensed ventricular-paced rhythm Abnormal ECG When compared with ECG of 11-Dec-2019 11:16, Electronic ventricular pacemaker has replaced Junctional rhythm Vent. rate has increased by 57 bpm Referred By: Ramiro Ansari Electronically Signed By: SHERIE JONES MD
--- OUTSIDE RECORDS SUMMARY | 2025-08-17 10:55 | XMS_ITS ---
Author Organization Unknown ENCOUNTERS Encounter Performer Location Date Diagnosis Diagnosis Status Emergency Generic ED Physician [address] [id number] Pre Admit Generic ED Physician [address] [id number] Emergency [address] [id number] [facility] *Note: Encounters from your own facility or health system may be excluded. Allergies, Adverse Reactions, Alerts Allergen Type Severity Identification Date lisinopril drug allergy 20211221 Penicillins drug allergy [id number] amlodipine drug allergy 20211221 hydralazine drug allergy [id number] Medications Name Date Quantity Days Supplied GPI Number
[2025-08-17] MEDS: SODIUM CHLORIDE 3417 ML IV (11:01)
[2025-08-17] MEDS: Albuterol Sulfate 5 MG, Albuterol/Iprat 2.5/0.5MG 3 ML 3 ML INHALE (11:03)
[2025-08-17 11:07] LABS: MANUAL DIFF FLAG NO
--- NOTE | 2025-08-17 11:07 | PC.NURSE ---
Hold fluids per provider
[2025-08-17 11:10] LABS: Hematocrit 34.8 % (37.0-47.0); Hemoglobin 11.6 g/dl (12.0-16.0); Imm Gran Abs Auto 0.04 X10*3/uL (0.00-0.03); Imm Gran Pct Auto 0.3 % (0.0-0.4); Lymphocytes Absolute Auto 1.2 X10*3/uL (1.2-4.9); Mean Corpuscular HGB Conc 33.3 g/dl (31.0-35.0); Mean Corpuscular Hemoglobin 31.6 pg (27.0-33.0); Mean Corpuscular Volume 94.8 fL (80.0-98.0); NRBC Abs Auto 0.000 X10*3/uL (0.0-0.012); NRBC Pct Auto 0.0 /100WBC (0.0-0.2); Platelet Count 239 X10*3/uL (160-400); Red Blood Count 3.67 X10*6/uL (4.20-5.50); White Blood Count 12.7 X10*3/uL (4.8-10.8)
[2025-08-17 11:11] LABS: VBG HCO3 18 mmol/L (22-26); VBG O2 % Saturation 91.0 %
[2025-08-17 11:11] LABS: Venous Blood Gas Refer to POC result
[2025-08-17 11:19] LABS: INTERNATIONAL NORM RATIO 1.9 (0.9-1.1); Prothrombin Time 22.8 SEC (11.2-13.5)
[2025-08-17 11:25] LABS: Alanine Aminotransferase 25 U/L (0-31); Albumin Level 4.2 g/dL (3.5-5.0); Alkaline Phosphatase 90 U/L (39-117); Anion Gap 18 (12-20); Aspartate Amino Transferase 49 U/L (5-31); Blood Urea Nitrogen 25 mg/dL (9-16); Calcium 8.8 mg/dL (8.4-10.2); Carbon Dioxide 17 mmol/L (22-29); Chloride 106 mmol/L (96-108); Creatinine Clr Calc Pharmacy 36.7; Estimated Glomerular Filt Rate 38; Magnesium 1.9 mg/dL (1.6-2.6); Potassium 4.2 mmol/L (3.3-5.1); Sodium 137 mmol/L (135-145); Total Protein 6.7 g/dL (6.5-8.0)
[2025-08-17 11:42] LABS: Troponin-I High Sensitivity 445.2 ng/L (<3.5-17.0)
[2025-08-17 11:45] LABS: Resp Syncy Virus RNA Qual PCR NEGATIVE (Negative); SARS COV2 PCR INHOUSE NEGATIVE (Negative)
--- NOTE | 2025-08-17 11:47 | MHC.EDTECH ---
pt requested liquid, provider stated still not yet.
--- NOTE | 2025-08-17 11:59 | ECG_ITS ---
Test Reason : CP Blood Pressure : */* mmHG Vent. Rate : 79 BPM Atrial Rate : 79 BPM P-R Int : 212 ms QRS Dur : 156 ms QT Int : 430 ms P-R-T Axes : 38 -67 84 degrees QTcB Int : 493 ms Atrial-sensed ventricular-paced rhythm with prolonged AV conduction Abnormal ECG When compared with ECG of 17-Aug-2025 10:59, Vent. rate has decreased by 13 bpm Referred By: Ramiro Ansari Electronically Signed By: SHERIE JONES MD
--- NOTE | 2025-08-17 12:37 | MHC.EDTECH ---
Attempted to draw the 2nd trop, pt is not in the room at the moment, will re-attempt shortly.
[2025-08-17 13:06] LABS: Reflex Lactate? Lactic Acid Added
[2025-08-17 13:46] LABS: Troponin-I High Sensitivity 1494.1 ng/L (<3.5-17.0)
[2025-08-17 13:53] LABS: ~Lactic Acid-LAB USE ONLY 1.6 mmol/L (0.5-2.0)
[2025-08-17 14:27] LABS: Hematocrit 32.2 % (37.0-47.0); Hemoglobin 10.9 g/dl (12.0-16.0); Mean Corpuscular HGB Conc 33.9 g/dl (31.0-35.0); Mean Corpuscular Hemoglobin 31.7 pg (27.0-33.0); Mean Corpuscular Volume 93.6 fL (80.0-98.0); NRBC Abs Auto 0.000 X10*3/uL (0.0-0.012); NRBC Pct Auto 0.0 /100WBC (0.0-0.2); Platelet Count 204 X10*3/uL (160-400); Red Blood Count 3.44 X10*6/uL (4.20-5.50); White Blood Count 10.8 X10*3/uL (4.8-10.8)
[2025-08-17 14:54] LABS: INTERNATIONAL NORM RATIO 1.8 (0.9-1.1); Prothrombin Time 22.1 SEC (11.2-13.5)
[2025-08-17 14:56] LABS: PTT Heparin Drip 30.3 SEC (53-77.9)
--- NOTE | 2025-08-17 14:58 | PC.NURSE ---
per pharmacy, cancel heparin at this time. will start at 7p due to pt taking her eliquis this morning
[2025-08-17] MEDS: Furosemide 20 MG/2 ML VIAL IVPUSH (15:02)
[2025-08-17 15:21] LABS: Appearance Urine Clear; Glucose Urine UA Negative (Negative); PH 5.0 (5.0-9.0); Specific Gravity - Urine 1.025 (1.005-1.025); UMIC TRIGGER UACC YES
--- NOTE | 2025-08-17 15:22 | P.HPHOSP_ITS ---
History of Present Illness Date of Service: 08/17/25 Attending physician on admission: Chriss Bass Chief Complaint: shortness of breat This is an 85-year-old female with history of hypertension who presents to the emergency department with shortness of breath. On Tuesday patient was diagnosed with a urinary tract infection, she was prescribed antibiotics. Few days later she began having chills, headache and wheezing. She thought this might be due to the antibiotics so she discontinued them. A different antibiotic was called in for her but she did not initiate it. She continued to have muscle aches and today she developed worsening shortness of breath which prompted her to come to the emergency department for evaluation. on arrival she was hypoxic with an oxygen saturation of 81% on room air. She had fever of 103, was tachypneic with a respiratory rate in the 40s. She was placed on aerosol mask and her oxygen saturations improved to the low 90s. Initial chest x-ray showed concern for pneumonia, white blood cell count was 12.7. Chest CT was obtained which showed less likely pneumonia and more likely congestive heart failure. Troponin was 445 and 2nd 1 increased to 1494. ProBNP was 12113. Patient denies any history of CHF. She had initially received fluid bolus due to elevated lactic acid. After CT scan returned she received a dose of IV Lasix. The emergency room provider discussed the case with Cardiology who recommended starting the patient on heparin drip. Review of Systems 2 Review of Systems: Yes all other systems are reviewed and are negative Constitutional: Constitutional: Denies chills and Reports fever(s) Cardiovascular: Cardiovascular: Denies chest pain, Denies palpitations and Reports dyspnea Respiratory: Respiratory: Reports cough and Reports dyspnea Endocrine: Endocrine: Denies palpitations [facility] Medical History COVID-19 vaccination refused History of gout Impaired fasting glucose Anemia CKD (chronic kidney disease) Acquired hypothyroidism History of complete heart block Essential hypertension Dyslipidemia Family History Father Substance use disorder Mother No problems noted. Surgical History S/P placement of cardiac pacemaker Social History (Reviewed 08/17/25 @ 15:41 by CAMILLE [place] Housing: Apartment Alcohol intake: current Alcohol intake frequency: holidays/special occasions only Alcohol type: wine Patient Tobacco Use Status: Never used Tobacco Smoked in Last 30 Days: No e-Cigarette/Vaping Use: Never Used Use of substances other than those prescribed or required for medical reasons: No Advance Directives: No Advance Directives Information Provided: Yes Current occupational status: retired Cognitive needs: No Hearing needs: No Vision needs: Yes Meds Allergies Allergy/AdvReac Type Severity Reaction Status Date / Time amlodipine (From [facility]) Allergy Unknown UNK Verified 07/22/25 14:54 amoxicillin (AMOXICILLIN) Allergy Unknown RASH, Verified 07/22/25 14:54 hives, rash hydralazine Allergy Unknown rash Verified 07/22/25 14:54 latex (LATEX) Allergy Unknown RASH Verified 07/22/25 14:54 Penicillins Allergy Rash Verified 08/17/25 10:42 lisinopril AdvReac Unknown cough Verified 07/22/25 14:54 Minoxidil AdvReac Unknown hair growth Uncoded 07/22/25 14:54 Active Medications: Current Medications Acetaminophen (Acetaminophen 325 Mg Tablet) 650 mg PO Q6H PRN PRN Reason: Pain, Mild 1-3,fever,headache Calcium Carbonate (Calcium Carbonate 750 Mg Tab.Chew) 750 mg PO Q4H PRN PRN Reason: Heartburn Heparin Sodium (Porcine) (Heparin Sodium,Porcine 5,000 Unit/Ml Vial) 4,600 unit 40 unit/kg (4600 unit) IVPUSH PROTOCOL BOLUS PRN; Protocol PRN Reason: 40 unit/kg - Heparin Protocol Heparin Sodium (Porcine) (Heparin Sodium,Porcine 5,000 Unit/Ml Vial) 9,100 unit 80 unit/kg (9100 unit) IVPUSH PROTOCOL BOLUS PRN; Protocol PRN Reason: 80 unit/kg - Heparin Protocol Heparin Sodium/Sodium Chloride (Heparin Sodium,Porcine/1/2ns) 25,000 unit in 250 mls @ 0 mls/hr IVCONT .Q0M COUNT INCLUDES THE [facility]; Protocol Magnesium Hydroxide (Milk Of Magnesia 30 Ml Oral.Susp) 30 ml PO DAILY PRN PRN Reason: Constipation Melatonin (Melatonin 3 Mg Tablet) 6 mg PO BEDTIME PRN PRN Reason: Insomnia Sodium Chloride (0.9 % Sodium Chloride Flush 3 Ml Syringe) 3 ml IVFLUSH QSHIFT COUNT INCLUDES THE [facility] Home Medications ?Medication ?Instructions ?Recorded ?Confirmed ?Last Taken ?Type vitamins A,C,Y-krzn-jcawhy 4,296 1 cap PO BID 11/13/21 08/17/25 08/16/25 History mcg-226 mg-90 mg capsule (PreserVision AREDS) xbbksvby-ghzm-nsct 8 mg-folic 400 1 tab PO DAILY 06/2808/17/25 08/16/25 History mcg-K 50 mcg-lutein 300 mcg tablet (Centrum Silver Women) loratadine 10 mg tablet (Claritin) 10 mg PO DAILY 09/1508/17/25 08/16/25 History cholecalciferol (vitamin D3) 50 50 mcg PO DAILY 08/17/25 08/16/25 History mcg (2,000 unit) tablet (Vitamin D3) flaxseed oil 1,000 mg capsule 1,000 mg PO DAILY 08/17/25 08/16/25 History Physical Exam 2 Vital Signs and Narrative: Vital Signs: Last Vital Signs Temp 97.7 F 08/17/25 15:02 Pulse 70 08/17/25 15:02 Resp 26 H 08/17/25 15:02 BP 117/64 08/17/25 15:02 Pulse Ox 97 08/17/25 15:02 O2 Del Method Nasal Cannula 08/17/25 15:02 O2 Flow Rate 2 08/17/25 15:02 BMI result Body Mass Index 45.9 Const: General: cooperative, comfortable, alert and awake Nutritional Appearance: obese Orientation/consciousness: patient oriented x3 Resp: Other: basilar rales Effort & Inspection: normal respiratory effort, Actively coughing, no respiratory distress and no use of accessory muscles Cardio: Rate: regular rate GI: Inspection: No distended Palpation (GI): Soft to palpation Neuro: General: patient oriented x3, moves all extremities and CN's II-XI intact bilaterally Extrem: Other: Nonpitting lower extremity edema Results Labs 08/17/25 14:18 08/17/25 10:59 Labs: Laboratory Results - last 24 hr 08/17/25 08/17/25 08/17/25 10:59 11:08 12:52 MCV 94.8 MCH 31.6 MCHC 33.3 RDW 13.5 Plt Count 239 MPV 10.3 Immature Gran % (Auto) 0.3 Neut % (Auto) 81.2 H Lymph % (Auto) 9.1 L [place] % (Auto) 9.2 Eos % (Auto) 0.0 Baso % (Auto) 0.2 Lymph # (Auto) 1.2 [place] # (Auto) 1.2 Eos # (Auto) 0.0 Baso # (Auto) 0.0 Abs Immat Gran (auto) 0.04 H Absolute Neuts (auto) 10.3 H Absolute Nucleated RBC 0.000 Nucleated RBC % (auto) 0.0 PT 22.8 H INR 1.9 H aPTT Heparin Protocol VBG pH 7.40 VBG pCO2 29 VBG pO2 66 VBG HCO3 18 L VBG O2 Saturation 91.0 VBG Base Excess -4.6 Anion Gap 18 Estim Creat Clear Calc 36.7 Estimated GFR 38 Random Glucose 182 H Lactic Acid 2.5 H* Lactic Acid F/U @ 2Hr Calcium 8.8 D Magnesium 1.9 Total Bilirubin 0.4 AST 49 H ALT 25 Alkaline Phosphatase 90 Troponin I High Sens 445.2 H* 1494.1 H* D NT-Pro-B Natriuret Pep 01330.0 H Total Protein 6.7 Albumin 4.2 Influenza Type A (PCR) POSITIVE A Influenza Type B (PCR) NEGATIVE RSV RNA Qual (PCR) NEGATIVE SARS-CoV-2 RNA (RT-PCR) NEGATIVE 08/17/25 08/17/25 13:28 14:18 MCV 93.6 MCH 31.7 MCHC 33.9 RDW 13.7 Plt Count 204 MPV 9.7 Immature Gran % (Auto) Neut % (Auto) Lymph % (Auto) [place] % (Auto) Eos % (Auto) Baso % (Auto) Lymph # (Auto) [place] # (Auto) Eos # (Auto) Baso # (Auto) Abs Immat Gran (auto) Absolute Neuts (auto) Absolute Nucleated RBC 0.000 Nucleated RBC % (auto) 0.0 PT 22.1 H INR 1.8 H aPTT Heparin Protocol 30.3 L VBG pH VBG pCO2 VBG pO2 VBG HCO3 VBG O2 Saturation VBG Base Excess Anion Gap Estim Creat Clear Calc Estimated GFR Random Glucose Lactic Acid Lactic Acid F/U @ 2Hr 1.6 Calcium Magnesium Total Bilirubin AST ALT Alkaline Phosphatase Troponin I High Sens NT-Pro-B Natriuret Pep Total Protein Albumin Influenza Type A (PCR) Influenza Type B (PCR) RSV RNA Qual (PCR) SARS-CoV-2 RNA (RT-PCR) Assessment and Plan (1) Non-ST elevation IN (NSTEMI): Status: Acute (2) Influenza: Status: Acute Plan This is an 85-year-old female with a history of heart block status post pacemaker placement, hypertension, atrial fibrillation on Eliquis, hypothyroidism hyperlipidemia who presents to the emergency department with shortness of breath and fever found to have influenza, hypoxia, NSTEMI and likely new onset CHF Acute respiratory failure with hypoxia Due to probable acute CHF in the setting of NSTEMI and influenza a Continue supplemental oxygen, wean as tolerated acute lactic acidosis not due to sepsis possibly due to hypoxia resolved with IVF NSTEMI Trend troponins until plateau Received morning dose of Eliquis, plan for heparin drip starting this evening Continue statin, beta-[place] Acute CHF Likely due to above (on lasix at home seems due to leg edema/HTN not CHF per outpatient notes) Start IV Lasix Follow urine output Low-sodium diet Echocardiogram Cardiology consultation Viral sepsis due to Influenza a Not likely to benefit from Tamiflu given duration of symptoms Initial imaging concerning for pneumonia - will cover empirically with ceftriaxone, doxycycline blood cultures pending recent UTI s/p macrobid repeat UA negative for acute infection Hypothyroidism Continue Synthroid pAF continue atenolol hold eliquis, on heparin drip as above HTN Continue valsartan, atenolol DVT prophylaxis-heparin drip Code status-DNR/DNI Patient will likely require 2 midnight stay in the hospital for management of acute heart failure, NSTEMI, influenza a, respiratory failure requiring IV Lasix, further cardiac workup, specialist evaluation which can not be achieved in a less acute setting Quality Stroke Does the patient have a stroke diagnosis?: No VTE Prior VTE?: No VTE Risk Level:: Medical - moderate - high VTE Device Contraindication: N/A - Device Ordered VTE Drug Contraindication: N/A - Med Ordered
--- NOTE | 2025-08-17 15:22 | PHA.MEDREC ---
Pharmacy Consult ? Medication Reconciliation Pharmacy has completed the medication reconciliation. Patient had a hand written list with her, family members were also at bedside. Patient confirmed she only took eliquis and levothyroxine this morning. Patient confirmed she was on macrobid but had a rxn so she was then prescribed bactrim however patient has not started it yet.
--- NOTE | 2025-08-17 15:55 | PC.NURSE ---
Late entry: Pt presented to ED via EMS from home, reporting SOB, cough, general malaise/ body aches from tuesday. Pt also had recent uti, took meds for 5 days and stopped them (did not finish). On arrival, pt noted to hypoxic at 81% on RA, placed on 4L O2 NC and improved quickly to >94%. Breathing very tachypneic. +dry cough. Alert and oriented. Bilat leg edema which pt reports is baseline, however, pt reports her weight has gone up. Pacemaker. Sepsis alert called. Pt medicated per OCT (fluids were held by provider). Vitals monitored and remained stable. Pt titrated down to 2L O2 NC at this time. Pt Flu A+ and NSTEMI (plan to start heparin drip at 7p) Purewick in placed for urine.
[2025-08-17] MEDS: 0.9 % Sodium Chloride Flush 3 ML SYRINGE IVFLUSH (16:18)
[2025-08-17] MEDS: Heparin Sodium,Porcine/1/2NS 25,000 UNIT/250 ML IV.SOLN 10 UNIT IVCONT (20:16)
[2025-08-17] MEDS: guaiFENesin DM 100/10/5 ML 5 ML SYRUP PO (21:58)
[2025-08-17] MEDS: Albuterol/Iprat 2.5/0.5MG 3 ML AMPUL.NEB INHALE (22:04)
[2025-08-18] VITALS (8 sets, daily range): BP systolic 113–152; BP diastolic 60–77; PULSE 61–70; RESP 18–20; TEMP 36.3–37.3; O2SAT 94–99
[2025-08-18 02:28] LABS: PTT Heparin Drip 66.1 SEC (53-77.9)
[2025-08-18 02:47] LABS: Troponin-I High Sensitivity 2568.2 ng/L (<3.5-17.0)
[2025-08-18] MEDS: guaiFENesin DM 100/10/5 ML 5 ML SYRUP PO ×2 (04:46→20:59)
[2025-08-18] MEDS: Albuterol/Iprat 2.5/0.5MG 3 ML AMPUL.NEB INHALE (04:52)
[2025-08-18 06:33] LABS: Hematocrit 30.1 % (37.0-47.0); Hemoglobin 10.0 g/dl (12.0-16.0); Mean Corpuscular HGB Conc 33.2 g/dl (31.0-35.0); Mean Corpuscular Hemoglobin 31.8 pg (27.0-33.0); Mean Corpuscular Volume 95.9 fL (80.0-98.0); NRBC Abs Auto 0.000 X10*3/uL (0.0-0.012); NRBC Pct Auto 0.0 /100WBC (0.0-0.2); Platelet Count 190 X10*3/uL (160-400); Red Blood Count 3.14 X10*6/uL (4.20-5.50); White Blood Count 8.0 X10*3/uL (4.8-10.8)
[2025-08-18 06:38] LABS: INTERNATIONAL NORM RATIO 1.6 (0.9-1.1); Prothrombin Time 18.8 SEC (11.2-13.5)
[2025-08-18 06:51] LABS: Blood Urea Nitrogen 26 mg/dL (9-16); Calcium 8.4 mg/dL (8.4-10.2); Cholesterol 130 mg/dL (<200); Creatinine Clr Calc Pharmacy 37.3; Estimated Glomerular Filt Rate 40; HDL Cholesterol 50 mg/dL (>40); Triglycerides 65 mg/dL (<150)
[2025-08-18 06:59] LABS: Anion Gap 13 (12-20); Carbon Dioxide 21 mmol/L (22-29); Chloride 108 mmol/L (96-108); Potassium 3.4 mmol/L (3.3-5.1); Sodium 139 mmol/L (135-145)
[2025-08-18 08:27] LABS: PTT Heparin Drip 109.0 SEC (53-77.9)
--- NOTE | 2025-08-18 08:57 | MHC.CM.PN ---
IMM 08/18/25 DX NSTEMI FLU-A Lives in an apartment. Family lives upstairs. She is independent with all functional mobility. She uses a cane for [place] DME cane HCP is on file at PCP office, Dr Camille CANCHOLA home self care. She will arrange for a family member to provide transportation home.
[2025-08-18 09:03] LABS: Troponin-I High Sensitivity 2056.6 ng/L (<3.5-17.0)
[2025-08-18] MEDS: Furosemide 20 MG/2 ML VIAL IVPUSH ×2 (09:03→17:12)
[2025-08-18] MEDS: 0.9 % Sodium Chloride Flush 3 ML SYRINGE IVFLUSH ×2 (09:04→17:09)
[2025-08-18 10:16] LABS: PTT Heparin Drip 89.1 SEC (53-77.9)
--- NOTE | 2025-08-18 11:40 | P.CONCA_ITS ---
History of Present Illness History of Present Illness Date of Service: 08/18/25 Requesting physician: Chriss Bass Consult reason: congestive heart failure and myocardial infarction Chief complaint: NSTEMI, Flu Narrative: I was consulted to see Mita in cardiology consultation today for elevated troponin consistent with myocardial infarction with congestive heart failure in his setting of flu. Patient is 85 year female follows with Dr. Dailey for a pacemaker with prior history of complete heart block status post dual-chamber pacemaker for which she is on dependent, hypertension, chronic kidney disease came to the hospital with typical symptoms of viral syndrome. She said she had fever and chills at home and and cough in his progressively developed weakness and muscle aches. She would not come immediately to the hospital. Then over the next couple of days she started feeling short of breath at nighttime and then on the day of admission got severely short of breath and came to the emergency room. She was noted to be positive for flu but subsequently blood work was suggestive of positive troponins and rising troponins consistent with NSTEMI. She had also had elevated BNP consistent with congestive heart failure/myocardial infarction related BNP elevation. She was then diuresed and admitted. EKGs showed ventricular pacing and was nondiagnostic. Patient has received IV heparin and has received treatment for her respiratory illness with nebulizers and says overall he is feeling better. She had also received diuresis although intake and output chart are not adequately chart it. She has downtrending troponins at this point time and overall findings consistent with myocardial infarction. She denies prior history of congestive heart failure or myocardial infarction in the past. She is generally pretty active and functional at home and lives independently with minimal support Review of Systems 2 Constitutional: Constitutional: Reports body ache(s), Reports chills, Reports fever(s), Reports lethargy, Reports poor appetite and Reports weakness Eyes: Eyes: Reports no additional eye complaints Cardiovascular: Cardiovascular: Denies chest pain, Denies rapid heart rate, Denies leg edema, Denies lightheadedness, Denies palpitations and Reports dyspnea Respiratory: Respiratory: Reports cough, Reports dyspnea and Reports wheezing Gastrointestinal: Gastrointestinal: Reports no additional gastrointestinal complaints Genitourinary: Genitourinary: Reports no additional female genitourinary complaints Musculoskeletal: Musculoskeletal: Reports no additional musculoskeletal complaints Integumentary/Breasts: Skin/Breast: Reports system reviewed and no additional complaints, except as docu Neurologic: Reports system reviewed and no additional complaints, except as documented and Reports weakness Psychiatric: Psychiatric: Reports no additional psychiatric complaints Endocrine: Endocrine: Reports no additional endocrine complaints and Denies palpitations Hematologic/Lymphatic: Hematologic/Lymphatic: Reports no additional hematologic/lymphatic complaints Allergic/Immunologic: Allergic/Immunologic: Reports wheezing [facility] Past Medical History Medical History COVID-19 vaccination refused History of gout Impaired fasting glucose Anemia CKD (chronic kidney disease) Acquired hypothyroidism History of complete heart block Essential hypertension Dyslipidemia Family History Family History Father Substance use disorder Mother No problems noted. Surgical History Surgical History S/P placement of cardiac pacemaker Social History Social History Household Members Other:: family lives upstairs Housing: Apartment Do you presently have visiting nurse or other home services: No Alcohol intake: current Alcohol intake frequency: holidays/special occasions only Alcohol type: wine Patient Tobacco Use Status: Never used Tobacco Smoked in Last 30 Days: No e-Cigarette/Vaping Use: Never Used Use of substances other than those prescribed or required for medical reasons: No Currently Displaying Signs/Symptoms of Drug Intoxication Withdrawal: No Have you been hit, kicked, punched, or otherwise hurt by someone within the past year? If so, by whom?: No Do you feel safe in your current relationship?: No Is there a partner from a previous relationship who is making you feel unsafe now?: No Are you made to feel afraid or neglected: No Advance Directives: No Advance Directives Information Provided: Yes Do you have a plan to hurt others: No Plan Recently lost weight without trying: No How much weight loss: Not applicable Eating poorly because of decreased appetite: Yes Nutrition screen score: 1 Nutrition Risks: No Nutritional Risk Patient : No : No Poor oral hygiene: No service: No Current occupational status: retired Cognitive needs: No Hearing needs: No Vision needs: Yes Meds Allergies Allergy/AdvReac Type Severity Reaction Status Date / Time amlodipine (From NORVASC) Allergy Unknown UNK Verified 07/22/25 14:54 amoxicillin (AMOXICILLIN) Allergy Unknown RASH, Verified 07/22/25 14:54 hives, rash hydralazine Allergy Unknown rash Verified 07/22/25 14:54 latex (LATEX) Allergy Unknown RASH Verified 07/22/25 14:54 Penicillins Allergy Rash Verified 08/17/25 10:42 lisinopril AdvReac Unknown cough Verified 07/22/25 14:54 Minoxidil AdvReac Unknown hair growth Uncoded 07/22/25 14:54 Active Medications: Current Medications Acetaminophen (Acetaminophen 325 Mg Tablet) 650 mg PO Q6H PRN PRN Reason: Pain, Mild 1-3,fever,headache Albuterol/Ipratropium (Albuterol/Iprat 2.5/0.5mg 3 Ml Ampul.Neb) 3 ml INHALE RQ6H WHILE AWAKE PRN PRN Reason: shortness of breath/wheezing Last Admin: 08/18/25 04:52 Dose: 3 ml Allopurinol (Allopurinol 100 Mg Tablet) 200 mg PO DAILY NONA Last Admin: 08/18/25 09:03 Dose: 200 mg Atenolol (Atenolol 100 Mg Tablet) 100 mg PO DAILY [facility]; Protocol Last Admin: 08/18/25 09:03 Dose: 100 mg Atorvastatin Calcium (Atorvastatin Calcium 20 Mg Tablet) 20 mg PO BEDTIME NONA Last Admin: 08/17/25 21:56 Dose: 20 mg Calcium Carbonate (Calcium Carbonate 750 Mg Tab.Chew) 750 mg PO Q4H PRN PRN Reason: Heartburn Furosemide (Furosemide 20 Mg/2 Ml Vial) 20 mg IVPUSH BID@0900,1800 [facility]; Protocol Last Admin: 08/18/25 09:03 Dose: 20 mg Guaifenesin/Dextromethorphan (Guaifenesin Dm 100/10/5 Ml 5 Ml Syrup) 5 ml PO Q6H PRN PRN Reason: Cough Last Admin: 08/18/25 04:46 Dose: 5 ml Heparin Sodium (Porcine) (Heparin Sodium,Porcine 5,000 Unit/Ml Vial) 4,600 unit 40 unit/kg (4600 unit) IVPUSH PROTOCOL BOLUS PRN; Protocol PRN Reason: 40 unit/kg - Heparin Protocol Heparin Sodium (Porcine) (Heparin Sodium,Porcine 5,000 Unit/Ml Vial) 9,100 unit 80 unit/kg (9100 unit) IVPUSH PROTOCOL BOLUS PRN; Protocol PRN Reason: 80 unit/kg - Heparin Protocol Heparin Sodium/Sodium Chloride (Heparin Sodium,Porcine/1/2ns) 25,000 unit in 250 mls @ 0 mls/hr IVCONT .Q0M [facility]; Protocol Last Titration: 08/18/25 10:18 Dose: 4.78 units/kg/hr, 5.44 mls/hr Ceftriaxone Sodium 1 gm/ (Sodium Chloride) 50 mls @ 100 mls/hr IV Q24H [facility] Last Infusion: 08/18/25 11:12 Dose: Infused Doxycycline Hyclate 100 mg/ (Sodium Chloride) 250 mls @ 166.67 mls/hr IV Q12H [facility] Last Infusion: 08/18/25 06:25 Dose: Infused Levothyroxine Sodium (Levothyroxine Sodium 88 Mcg Tablet) 88 mcg PO DAILY@0600 [facility] Last Admin: 08/18/25 04:46 Dose: 88 mcg Loratadine (Loratadine 10 Mg Tablet) 10 mg PO DAILY [facility] Last Admin: 08/18/25 09:03 Dose: 10 mg Magnesium Hydroxide (Milk Of Magnesia 30 Ml Oral.Susp) 30 ml PO DAILY PRN PRN Reason: Constipation Melatonin (Melatonin 3 Mg Tablet) 6 mg PO BEDTIME PRN PRN Reason: Insomnia Multivitamins/Vitamin C (Multivitamin Tablet) 1 tab PO DAILY [facility] Last Admin: 08/18/25 09:06 Dose: 1 tab Sodium Chloride (0.9 % Sodium Chloride Flush 3 Ml Syringe) 3 ml IVFLUSH QSHIFT [facility] Last Admin: 08/18/25 09:04 Dose: 3 ml Valsartan (Valsartan 320 Mg Tablet) 320 mg PO DAILY [facility]; Protocol Last Admin: 08/18/25 09:04 Dose: 320 mg Home Medications ?Medication ?Instructions ?Recorded ?Confirmed ?Last Taken ?Type vitamins A,C,I-vfjb-[id number] 4,296 1 cap PO BID 11/13/21 08/17/25 08/16/25 History mcg-226 mg-90 mg capsule (PreserVision AREDS) [id number] 8 mg-folic 400 1 tab PO DAILY 06/2808/17/25 08/16/25 History mcg-K 50 mcg-lutein 300 mcg tablet (Centrum Silver Women) loratadine 10 mg tablet (Claritin) 10 mg PO DAILY 09/1508/17/25 08/16/25 History cholecalciferol (vitamin D3) 50 50 mcg PO DAILY 08/17/25 08/16/25 History mcg (2,000 unit) tablet (Vitamin D3) flaxseed oil 1,000 mg capsule 1,000 mg PO DAILY 08/17/25 08/16/25 History Physical Exam 2 Vital Signs: Vital Signs: Last Vital Signs Temp 98.9 F 08/18/25 07:17 Pulse 62 08/18/25 09:03 Resp 20 08/18/25 07:17 BP 151/65 H 08/18/25 09:04 Pulse Ox 97 08/18/25 07:17 O2 Del Method Nasal Cannula 08/18/25 07:17 O2 Flow Rate 2 08/18/25 07:17 BMI result Body Mass Index 44.1 Const: General: cooperative, comfortable, no acute distress, alert and awake Nutritional Appearance: obese Orientation/consciousness: patient oriented x3 HEENT: Head: Yes normocephalic and Yes atraumatic Neck: Neck: Yes trachea midline, Yes supple and Yes no JVD Resp: Effort & Inspection: normal respiratory effort Auscultation: crackles bilateral at the base Cardio: Jugular venous distension: no JVD Rate: regular rate Rhythm: r egular rhythm Heart sounds: S1 normal heart sound present, S2 normal heart sound present, no click, no gallops and Murmur heart sound present systolic GI: Auscultation: normal bowel sounds Skin: General skin exam: no rashes or lesions noted Neuro: General: patient oriented x3 and no focal motor deficits Extrem: General: Yes no clubbing, cyanosis or edema Objective Labs and Meds 08/18/25 06:25 08/18/25 06:25 Lab results: Laboratory Results - last 24 hr 08/17/25 08/17/25 08/17/25 10:59 12:52 13:28 WBC RBC Hgb Hct MCV MCH MCHC RDW Plt Count MPV Absolute Nucleated RBC Nucleated RBC % (auto) Hold Purple Top PT INR aPTT Heparin Protocol Sodium Potassium Chloride Carbon Dioxide Anion Gap BUN Creatinine Estim Creat Clear Calc Estimated GFR Random Glucose Lactic Acid F/U @ 2Hr 1.6 Calcium Troponin I High Sens 445.2 H* 1494.1 H* D NT-Pro-B Natriuret Pep 23852.0 H Triglycerides Cholesterol LDL Cholesterol, Calc HDL Cholesterol Urine Color Urine Appearance Urine pH Ur Specific [place] Urine Protein Urine Glucose (UA) Urine Ketones Urine Blood Urine Nitrite Ur Leukocyte Esterase Urine RBC Urine WBC Ur Squamous Epith Cells Urine Bacteria Hyaline Casts Influenza Type A (PCR) POSITIVE A Influenza Type B (PCR) NEGATIVE RSV RNA Qual (PCR) NEGATIVE SARS-CoV-2 RNA (RT-PCR) NEGATIVE 08/17/25 08/17/25 08/17/25 14:18 15:12 15:53 WBC 10.8 RBC 3.44 L Hgb 10.9 L Hct 32.2 L MCV 93.6 MCH 31.7 MCHC 33.9 RDW 13.7 Plt Count 204 MPV 9.7 Absolute Nucleated RBC 0.000 Nucleated RBC % (auto) 0.0 Hold Purple Top PT 22.1 H INR 1.8 H aPTT Heparin Protocol 30.3 L Sodium Potassium Chloride Carbon Dioxide Anion Gap BUN Creatinine Estim Creat Clear Calc Estimated GFR Random Glucose Lactic Acid F/U @ 2Hr Calcium Troponin I High Sens 2817.7 H* D NT-Pro-B Natriuret Pep Triglycerides Cholesterol LDL Cholesterol, Calc HDL Cholesterol Urine Color Yellow Urine Appearance Clear Urine pH 5.0 Ur Specific [place] 1.025 Urine Protein Trace Urine Glucose (UA) Negative Urine Ketones Trace Urine Blood Moderate (2+) H Urine Nitrite Negative Ur Leukocyte Esterase Negative Urine RBC 3-5 H Urine WBC 0-5 Ur Squamous Epith Cells 3-5 Urine Bacteria None Seen Hyaline Casts 3-5 Influenza Type A (PCR) Influenza Type B (PCR) RSV RNA Qual (PCR) SARS-CoV-2 RNA (RT-PCR) 08/17/25 08/18/25 08/18/25 19:16 02:11 06:25 WBC 8.0 RBC 3.14 L Hgb 10.0 L Hct 30.1 L MCV 95.9 MCH 31.8 MCHC 33.2 RDW 13.8 Plt Count 190 MPV 10.1 Absolute Nucleated RBC 0.000 Nucleated RBC % (auto) 0.0 Hold Purple Top SEE NOTE PT 18.8 H INR 1.6 H aPTT Heparin Protocol 66.1 D Sodium 139 Potassium 3.4 Chloride 108 Carbon Dioxide 21 L Anion Gap 13 BUN 26 H Creatinine 1.26 Estim Creat Clear Calc 37.3 Estimated GFR 40 Random Glucose 111 Lactic Acid F/U @ 2Hr Calcium 8.4 Troponin I High Sens 3220.1 H* 2568.2 H* NT-Pro-B Natriuret Pep 81215.6 H Triglycerides 65 Cholesterol 130 LDL Cholesterol, Calc 67 HDL Cholesterol 50 Urine Color Urine Appearance Urine pH Ur Specific [place] Urine Protein Urine Glucose (UA) Urine Ketones Urine Blood Urine Nitrite Ur Leukocyte Esterase Urine RBC Urine WBC Ur Squamous Epith Cells Urine Bacteria Hyaline Casts Influenza Type A (PCR) Influenza Type B (PCR) RSV RNA Qual (PCR) SARS-CoV-2 RNA (RT-PCR) 08/18/25 08/18/25 07:56 09:45 WBC RBC Hgb Hct MCV MCH MCHC RDW Plt Count MPV Absolute Nucleated RBC Nucleated RBC % (auto) Hold Purple Top PT INR aPTT Heparin Protocol 109.0 H* D 89.1 H Sodium Potassium Chloride Carbon Dioxide Anion Gap BUN Creatinine Estim Creat Clear Calc Estimated GFR Random Glucose Lactic Acid F/U @ 2Hr Calcium Troponin I High Sens 2056.6 H* NT-Pro-B Natriuret Pep Triglycerides Cholesterol LDL Cholesterol, Calc HDL Cholesterol Urine Color Urine Appearance Urine pH Ur Specific [place] Urine Protein Urine Glucose (UA) Urine Ketones Urine Blood Urine Nitrite Ur Leukocyte Esterase Urine RBC Urine WBC Ur Squamous Epith Cells Urine Bacteria Hyaline Casts Influenza Type A (PCR) Influenza Type B (PCR) RSV RNA Qual (PCR) SARS-CoV-2 RNA (RT-PCR) Assessment and Plan (1) Acute myocardial infarction: Status: Acute Patient presents with a acute myocardial infarction in his setting of flu. This could be secondary to her systemic illness with flu with underlying possible coronary artery disease existent in elderly patient. Although primary event can not be entirely ruled out although she does not have classic symptoms of myocardial ischemia. EKGs nondiagnostic. At this point time I would continue with IV heparin for 72 hours and start aspirin and high-intensity statin therapy. Also start nitrates both for preload reduction and reducing myocardial ischemia. Will need an echocardiogram to assess for LV function and any regional wall motion abnormality. Other possibility includes takotsubo cardiomyopathy in the setting of flu. (2) Decompensated heart failure: Status: Acute Decompensated congestive heart failure most likely related to acute myocardial infarction and secondary to also systemic illness with flu. Clinically still appears to have mild heart failure. Will continue gentle diuresis. Strict intake and output chart needs to be pursued. Continue monitor renal function electrolytes. Also monitor antiplatelet BNP. Need an echocardiogram tomorrow to guide therapy. Nitrates as above a preload reduction. (3) S/P placement of cardiac pacemaker: Status: Acute Cardiac pacemaker in-situ for complete heart block. Pacemaker seems to be working well. (4) Paroxysmal atrial fibrillation: Status: Acute Paroxysmal atrial fibrillation without any clinical recurrence at this point time. Once stabilized will add beta-ang[place] therapy especially metoprolol therapy to her regimen. Hold off on oral anticoagulation therapy with Eliquis. Continue IV heparin. Will follow with you Procedures Date of Service Date of Service: 08/18/25
--- NOTE | 2025-08-18 14:33 | HO.PM.IMPN ---
Subjective Subjective Date of Service: 08/18/25 Interval History: Patient reports feeling significantly improved as compared to yesterday. Reports respiratory function has improved No chest pain, palpitations, dizziness or diaphoresis Review of Systems Review of Systems: Yes all other systems are reviewed and are negative Physical Exam Exam: Exam: General:?Elderly female, obese, awake, alert, cooperative, in no acute distress. Vital Signs:?Afebrile. Hemodynamically stable. On 2 L nasal cannula with SpO2 in the mid 90s. HEENT:?Normocephalic, atraumatic. Mucous membranes moist. No scleral icterus. Neck:?Supple. No jugular venous distention. Cardiovascular:?Regular rate and rhythm. Normal S1/S2. Systolic murmur appreciated. No rubs or gallops. Pacemaker in situ. Respiratory:?Normal work of breathing. Bibasilar crackles present. No wheezing. Good air movement bilaterally. Abdomen:?Soft, non?distended, non?tender. Bowel sounds present. Extremities:?No cyanosis or clubbing. Trace to mild bilateral lower extremity edema. Neurologic:?Alert and oriented ?3. No focal motor or sensory deficits. Skin:?Warm and dry. No rashes or lesions. Vital Signs: Vital Signs: Last Vital Signs Temp 98.8 F 08/18/25 11:47 Pulse 66 08/18/25 11:47 Resp 18 08/18/25 11:47 BP 113/66 08/18/25 11:47 Pulse Ox 94 08/18/25 11:47 O2 Del Method Nasal Cannula 08/18/25 11:47 O2 Flow Rate 2 08/18/25 11:47 BMI result Body Mass Index 44.1 Objective Data Active Medications Acetaminophen (Acetaminophen 325 Mg Tablet) 650 mg PO Q6H PRN PRN Reason: Pain, Mild 1-3,fever,headache Albuterol/Ipratropium (Albuterol/Iprat 2.5/0.5mg 3 Ml Ampul.Neb) 3 ml INHALE RQ6H WHILE AWAKE PRN PRN Reason: shortness of breath/wheezing Last Admin: 08/18/25 04:52 Dose: 3 ml Documented By: JUAN A Allopurinol (Allopurinol 100 Mg Tablet) 200 mg PO DAILY NONA Last Admin: 08/18/25 09:03 Dose: 200 mg Documented By: ROCKY Atenolol (Atenolol 100 Mg Tablet) 100 mg PO DAILY [facility]; Protocol Last Admin: 08/18/25 09:03 Dose: 100 mg Documented By: ROCKY Atorvastatin Calcium (Atorvastatin Calcium 20 Mg Tablet) 20 mg PO BEDTIME NONA Last Admin: 08/17/25 21:56 Dose: 20 mg Documented By: JUAN A Calcium Carbonate (Calcium Carbonate 750 Mg Tab.Chew) 750 mg PO Q4H PRN PRN Reason: Heartburn Furosemide (Furosemide 20 Mg/2 Ml Vial) 20 mg IVPUSH BID@0900,1800 [facility]; Protocol Last Admin: 08/18/25 09:03 Dose: 20 mg Documented By: ROCKY Guaifenesin/Dextromethorphan (Guaifenesin Dm 100/10/5 Ml 5 Ml Syrup) 5 ml PO Q6H PRN PRN Reason: Cough Last Admin: 08/18/25 04:46 Dose: 5 ml Documented By: JUAN A Heparin Sodium (Porcine) (Heparin Sodium,Porcine 5,000 Unit/Ml Vial) 4,600 unit 40 unit/kg (4600 unit) IVPUSH PROTOCOL BOLUS PRN; Protocol PRN Reason: 40 unit/kg - Heparin Protocol Heparin Sodium (Porcine) (Heparin Sodium,Porcine 5,000 Unit/Ml Vial) 9,100 unit 80 unit/kg (9100 unit) IVPUSH PROTOCOL BOLUS PRN; Protocol PRN Reason: 80 unit/kg - Heparin Protocol Heparin Sodium/Sodium Chloride (Heparin Sodium,Porcine/1/2ns) 25,000 unit in 250 mls @ 0 mls/hr IVCONT .Q0M NONA; Protocol Last Titration: 08/18/25 10:18 Dose: 4.78 units/kg/hr, 5.44 mls/hr Documented By: ROCKY Co-signed By: ALONSO Ceftriaxone Sodium 1 gm/ (Sodium Chloride) 50 mls @ 100 mls/hr IV Q24H [facility] Last Infusion: 08/18/25 11:12 Dose: Infused Documented By: ROCKY Doxycycline Hyclate 100 mg/ (Sodium Chloride) 250 mls @ 166.67 mls/hr IV Q12H [facility] Last Infusion: 08/18/25 06:25 Dose: Infused Documented By: JUAN A Levothyroxine Sodium (Levothyroxine Sodium 88 Mcg Tablet) 88 mcg PO DAILY@0600 [facility] Last Admin: 08/18/25 04:46 Dose: 88 mcg Documented By: JUAN A Loratadine (Loratadine 10 Mg Tablet) 10 mg PO DAILY [facility] Last Admin: 08/18/25 09:03 Dose: 10 mg Documented By: ROCKY Magnesium Hydroxide (Milk Of Magnesia 30 Ml Oral.Susp) 30 ml PO DAILY PRN PRN Reason: Constipation Melatonin (Melatonin 3 Mg Tablet) 6 mg PO BEDTIME PRN PRN Reason: Insomnia Multivitamins/Vitamin C (Multivitamin Tablet) 1 tab PO DAILY [facility] Last Admin: 08/18/25 09:06 Dose: 1 tab Documented By: ROCKY Nitroglycerin (Nitroglycerin 2 % Oint 1 Gm Packet) 0.5 inch TRANSDERMA BID@0900,1500 [facility] Sodium Chloride (0.9 % Sodium Chloride Flush 3 Ml Syringe) 3 ml IVFLUSH QSHIFT [facility] Last Admin: 08/18/25 09:04 Dose: 3 ml Documented By: ROCKY Valsartan (Valsartan 320 Mg Tablet) 320 mg PO DAILY [facility]; Protocol Last Admin: 08/18/25 09:04 Dose: 320 mg Documented By: ROCKY Labs 08/18/25 06:25 08/18/25 06:25 Labs: Laboratory Results - last 24 hr 08/17/25 08/17/25 08/17/25 14:18 15:12 15:53 MCV MCH MCHC RDW Plt Count MPV Absolute Nucleated RBC Nucleated RBC % (auto) Hold Purple Top PT 22.1 H INR 1.8 H aPTT Heparin Protocol 30.3 L Anion Gap Estim Creat Clear Calc Estimated GFR Random Glucose Calcium Troponin I High Sens 2817.7 H* D NT-Pro-B Natriuret Pep Triglycerides Cholesterol LDL Cholesterol, Calc HDL Cholesterol Urine Color Yellow Urine Appearance Clear Urine pH 5.0 Ur Specific [place] 1.025 Urine Protein Trace Urine Glucose (UA) Negative Urine Ketones Trace Urine Blood Moderate (2+) H Urine Nitrite Negative Ur Leukocyte Esterase Negative Urine RBC 3-5 H Urine WBC 0-5 Ur Squamous Epith Cells 3-5 Urine Bacteria None Seen Hyaline Casts 3-5 08/17/25 08/18/25 08/18/25 19:16 02:11 06:25 MCV 95.9 MCH 31.8 MCHC 33.2 RDW 13.8 Plt Count 190 MPV 10.1 Absolute Nucleated RBC 0.000 Nucleated RBC % (auto) 0.0 Hold Purple Top SEE NOTE PT 18.8 H INR 1.6 H aPTT Heparin Protocol 66.1 D Anion Gap 13 Estim Creat Clear Calc 37.3 Estimated GFR 40 Random Glucose 111 Calcium 8.4 Troponin I High Sens 3220.1 H* 2568.2 H* NT-Pro-B Natriuret Pep 71954.6 H Triglycerides 65 Cholesterol 130 LDL Cholesterol, Calc 67 HDL Cholesterol 50 Urine Color Urine Appearance Urine pH Ur Specific [place] Urine Protein Urine Glucose (UA) Urine Ketones Urine Blood Urine Nitrite Ur Leukocyte Esterase Urine RBC Urine WBC Ur Squamous Epith Cells Urine Bacteria Hyaline Casts 08/18/25 08/18/25 07:56 09:45 MCV MCH MCHC RDW Plt Count MPV Absolute Nucleated RBC Nucleated RBC % (auto) Hold Purple Top PT INR aPTT Heparin Protocol 109.0 H* D 89.1 H Anion Gap Estim Creat Clear Calc Estimated GFR Random Glucose Calcium Troponin I High Sens 2056.6 H* NT-Pro-B Natriuret Pep Triglycerides Cholesterol LDL Cholesterol, Calc HDL Cholesterol Urine Color Urine Appearance Urine pH Ur Specific [place] Urine Protein Urine Glucose (UA) Urine Ketones Urine Blood Urine Nitrite Ur Leukocyte Esterase Urine RBC Urine WBC Ur Squamous Epith Cells Urine Bacteria Hyaline Casts Microbiology Microbiology Results: Microbiology 08/17/25 10:59 Blood Culture - Preliminary Blood - Venous No growth after 24 hours. 08/17/25 11:00 Blood Culture - Preliminary Blood - Venous No growth after 24 hours. Assessment and Plan (1) Essential hypertension: Status: Acute (2) Decompensated heart failure: Status: Acute (3) Non-ST elevation MO (NSTEMI): Status: Acute (4) History of complete heart block: Status: Acute (5) S/P placement of cardiac pacemaker: Status: Acute (6) Paroxysmal atrial fibrillation: Status: Acute (7) Acquired hypothyroidism: Status: Acute (8) CKD (chronic kidney disease): Status: Acute (9) Anemia: Status: Acute (10) Influenza: Status: Acute (11) Hypoxia: Status: Acute Plan 85-year-old female?with history of complete heart block s/p dual?chamber pacemaker, paroxysmal atrial fibrillation on Eliquis, CKD stage III, hypertension, dyslipidemia, hypothyroidism, and obesity, admitted with?acute hypoxic respiratory failure?in the setting of?Influenza A, complicated by?NSTEMI and acute decompensated heart failure. Hospital course notable for rising troponins (now downtrending), elevated BNP, pulmonary edema on CT chest, and improvement with IV diuresis and anticoagulation. Currently hemodynamically stable on the medical floor with improving respiratory status. NSTEMI Troponins peaked >3200 with downtrend; EKG nondiagnostic due to ventricular pacing. Likely type II MO in the setting of influenza and acute CHF, though primary coronary event cannot be fully excluded. No chest pain reported.? Plan: Continue IV heparin infusion per protocol (goal total ?72 hours) Hold Eliquis while on heparin drip Continue?atenolol 100 mg daily Continue?atorvastatin 20 mg nightly Start nitroglycerin patch 2%, 0.5 inch BID?(added today) Trend troponins to continued downtrend Telemetry monitoring Echocardiogram to assess LV function and regional wall motion abnormalities Cardiology following Acute Decompensated Heart Failure New diagnosis; CT chest consistent with CHF (bilateral pleural effusions, pulmonary edema). BNP markedly elevated. Clinical improvement noted with diuresis.? Plan: Continue?IV furosemide 20 mg BID Strict intake/output monitoring Daily weights Low-sodium diet Monitor renal function and electrolytes daily Continue nitrates as above for preload reduction Adjust diuresis based on volume status and renal function Acute Hypoxic Respiratory Failure Likely multifactorial due to pulmonary edema and influenza. Oxygen requirements improving.? Plan: Continue supplemental oxygen via nasal cannula, wean as tolerated Maintain SpO2 >92% PRN bronchodilator nebulizers for wheezing Incentive spirometry Influenza A with Viral Sepsis (improving) Possible superimposed post viral pneumonia Confirmed Influenza A. Initial concern for pneumonia, but CT chest & physical exam favors CHF. Outside Tamiflu window.? Plan: Supportive care Continue empiric?ceftriaxone and doxycycline?for possible superimposed postviral pneumonia; reassess need daily Monitor fever curve and WBC Blood cultures negative to date Paroxysmal Atrial Fibrillation No recurrence noted during hospitalization. Rate controlled.? Plan: Continue atenolol Hold Eliquis while on heparin drip Resume oral anticoagulation once heparin discontinued if no contraindications Chronic Kidney Disease (Stage III) Baseline renal function preserved; stable with diuresis.? Plan: Daily BMP Avoid nephrotoxins Adjust diuretics and anticoagulation dosing as needed Hypertension Blood pressures stable.? Plan: Continue valsartan 320 mg daily Continue atenolol Monitor BP closely, especially with diuresis and nitrates Hypothyroidism Stable.? Plan: Continue levothyroxine 88 mcg daily Anemia (Chronic) Stable mild normocytic anemia without evidence of bleeding.? Plan: Monitor CBC No transfusion indicated at this time QUALITY METRICS VTE:?Therapeutic heparin drip CODE STATUS:?DNR/DNI DIET:?Cardiac / Low sodium TELEMETRY:?Yes OXYGEN REQUIREMENT:?2 L NC Total time managing care of this patient today: 45 minutes. Quality Stroke Does the patient have a stroke diagnosis?: No VTE Prior VTE?: No VTE Risk Level:: Medical - moderate - high VTE Device Contraindication: N/A - Device Ordered VTE Drug Contraindication: N/A - Med Ordered
[2025-08-18 16:49] LABS: PTT Heparin Drip 53.6 SEC (53-77.9)
[2025-08-18] MEDS: Nitroglycerin 2 % Oint 1 GM Packet 0.5 INCH TRANSDERMA (17:08)
[2025-08-18] MEDS: Heparin Sodium,Porcine/1/2NS 25,000 UNIT/250 ML IV.SOLN 5.44 UNIT IVCONT (20:39)
[2025-08-18 23:46] LABS: PTT Heparin Drip 35.0 SEC (53-77.9)
[2025-08-19] VITALS (9 sets, daily range): BP systolic 129–164; BP diastolic 59–74; PULSE 60–84; RESP 16–20; TEMP 36.3–37.3; O2SAT 95–99
--- NOTE | 2025-08-19 07:00 | CA_ITS ---
Transthoracic Echocardiogram Patient (Last, First, Middle): Mita Zapien T Gender: F Date of : 1940 Age: 85 Procedure Date: 08/19/2025 Procedure Type: Transthoracic Echocardiogram Location: [facility] [place] Height: 157.48 cm Weight: 109.32 kg BSA: 2.07 m2 Heart Rate: 62 bpm BP: 164 / 74 mmHg Range Management Specialist: CELESTINA Referring MD: Ashleigh SAENZ Symptoms: chf, nstemi Study Quality: Adequate ECG Rhythm: Ventriculary paced rhythm Conclusions: - The left ventricular systolic function is mildly decreased. The calculated ejection fraction is 44% by biplane method. - No obvious valvular pathology seen on this study. Findings Left Ventricle Normal left ventricular cavity size. There is normal left ventricular wall thickness. The left ventricular systolic function is mildly decreased. The calculated ejection fraction is 44% by biplane method. There is mild global hypokinesis. There is paradoxical septal motion consistent with a right ventricular pacemaker. Diastolic function is normal for age. Right Ventricle Normal right ventricular cavity size. There is low normal right ventricular systolic function. Atria The left atrium is mildly dilated. The right atrium is normal in size. Aortic Valve There is a normal trileaflet aortic valve. There is no aortic valve stenosis. There is no aortic valve regurgitation. Mitral Valve The mitral valve appears normal. There is no mitral valve regurgitation. There is no mitral valve stenosis. Pulmonic Valve The pulmonic valve is likely normal. Tricuspid Valve There is mild tricuspid valve regurgitation. There is no evidence of pulmonary hypertension. Great Vessels The asc aorta is normal in size. Venous The inferior vena cava is normal in size and collapses greater than 50% with inspiration. Pericardium/Pleural There is no evidence of pericardial effusion. Prior Study Comparison Changes noted compared to prior study dated: 12/09/2021. in LVEF. Recommendations, Care & Conclusions No obvious valvular pathology seen on this study. Measurements 2D Linear Measurements IVSd: 0.75 0.6-0.9/0.6-1.0 cm LVIDd: 4.42 3.9-5.3/4.2-5.9 cm LVIDd Index: 2.14 2.4-3.2/2.2-3.1 cm/m2 LVIDs: 3.87 2.0-3.6 cm LVPWd: 0.87 0.7-1.1 cm LA Diam: 4.20 2.7-3.8/3.0-4.0 cm LAIDs Index: 2.03 1.5-2.3 cm/m2 LV Mass: 139.02 67-162/88-224 g LV Mass Index: 67.16 43-95/49-115 g/m2 LVOT Diam: 2.00 3.0+(-)1.3 cm 2D Systolic Function EF 4C: 38.60 >55% EF 2C: 49.40 >55% EF BiP: 43.60 >55% Mitral Valve MV Pk E: 0.75 MV PK A: 0.81 MV Decel Time: 227.00 E/A: 0.90 E'Lateral: 6.64 E'Medial: 4.85 E/E' Med: 15.40 E/E' Lat: 11.30 PHT: 67.00 MVA PHT: 3.28 Decel [place]: 3.34 Aortic Valve AoV Pk Lauri: 2.13 AoV Mn Lauri: 1.50 AoV VTI: 0.47 AoV Pk Grad: 18.00 Aov Mn Grad: 10.00 NINFA Cont.VTI: 1.74 LVOT LVOT Pk Lauri: 1.23 LVOT Mn Lauri: 0.83 LVOT VTI: 0.26 LVOT Pk Grad: 6.00 LVOT Mn Grad: 3.00 LVOT Diam: 2.00 LVOT Area: 3.14 Diastolic Function MV Pk E: 0.75 MV Pk A: 0.81 E/A: 0.90 E'Medial: 4.85 E/E' Med: 15.40 E' Laterial: 6.64 E/E' Lat: 11.30 Right Ventricle TAPSE (mm): 19.60 TVS' Lauri: 9.16 Tricuspid Valve TR Pk Lauri: 2.74 TR Pk Grad: 30.00 RA Press: 3.00 RVSP: 33.00 Great Vessels Aorta Sinus of Valsalva: 3.10 2.0-3.[address] [place]: 2.42 1.7-3.4 cm Ao Asc: 3.40 2.1-3.4 cm Updated in Other Vendor System with Status of Final Paulie Dailey MD electronically signed on 08/19/2025 11:32:00 AM with status of Final
[2025-08-19 08:04] LABS: PTT Heparin Drip > 200.0 SEC (53-77.9)
[2025-08-19] MEDS: Furosemide 20 MG/2 ML VIAL IVPUSH ×2 (08:51→17:25)
[2025-08-19] MEDS: Nitroglycerin 2 % Oint 1 GM Packet 0.5 INCH TRANSDERMA ×2 (08:52→15:26)
[2025-08-19] MEDS: 0.9 % Sodium Chloride Flush 3 ML SYRINGE IVFLUSH ×2 (08:52→15:35)
[2025-08-19 10:00] LABS: PTT Heparin Drip 186.1 SEC (53-77.9)
--- NOTE | 2025-08-19 10:22 | PM.PNCARD ---
Subjective Subjective Date of Service: 08/19/25 Interval history: Patient states that she is doing okay. She does not have any chest pain or any other cardiac symptoms at this time. Review of Systems Review of Systems Yes all other systems are reviewed and are negative Constitutional: Reports as per HPI and Reports no additional constitutional complaints Eyes: Reports as per HPI and Denies no additional eye complaints Denies system reviewed and no additional complaints, except as documented and Reports as per HPI Cardiovascular: Reports as per HPI, Reports no additional cardiovascular complaints, Denies acrocyanosis, Denies cool extremities, Denies chest pain, Denies leg edema, Denies lightheadedness, Denies palpitations and Denies dyspnea Respiratory: Reports as per HPI, Denies no additional respiratory complaints and Denies dyspnea Gastrointestinal: Reports as per HPI and Denies no additional gastrointestinal complaints Genitourinary: Reports as per HPI Musculoskeletal: Reports no additional musculoskeletal complaints and Reports as per HPI Skin/Breast: Reports system reviewed and no additional complaints, except as docu Reports system reviewed and no additional complaints, except as documented and Reports as per HPI Psychiatric: Reports no additional psychiatric complaints and Reports as per HPI Endocrine: Reports no additional endocrine complaints, Reports as per HPI and Denies palpitations Hematologic/Lymphatic: Reports no additional hematologic/lymphatic complaints and Reports as per HPI Allergic/Immunologic: Reports no additional allergic/immunologic complaints and Reports as per HPI Physical Exam Vital Signs: Last Vital Signs Temp 99.1 F 08/19/25 07:27 Pulse 67 08/19/25 08:52 Resp 18 08/19/25 07:27 BP 164/74 H 08/19/25 08:52 Pulse Ox 95 08/19/25 07:27 O2 Del Method Nasal Cannula 08/19/25 07:27 O2 Flow Rate 2 08/19/25 07:27 BMI result Body Mass Index 44.1 Const General: comfortable and no acute distress Orientation/consciousness: patient oriented x3 HEENT Other: Unremarkable Head: Yes normal to inspection Neck Neck: Yes normal visual inspection Chest Chest palpation & inspection: normal inspection of the chest Resp Auscultation: clear to auscultation bilaterally Cardio Palpation: normal PMI Heart sounds: S1 normal heart sound present, S2 normal heart sound present, no gallops, no murmurs and no rubs GI Palpation (GI): Soft to palpation Back/Spine/Pelvis Other: unremarkable Skin General skin exam: no rashes or lesions noted Neuro General: patient oriented x3 Extrem General: Yes normal to inspection Psych Mental Status: mental status grossly normal Objective Labs and Meds 08/18/25 06:25 08/18/25 06:25 Lab results: Laboratory Results - last 24 hr 08/18/25 08/18/25 08/19/25 16:34 23:31 07:26 aPTT Heparin Protocol 53.6 D 35.0 L D > 200.0 H* D 08/19/25 09:19 aPTT Heparin Protocol 186.1 H* Progress Note: A&P Assessment and plan (1) Non-ST elevation [place] (NSTEMI): Status: Acute Plan Peak troponin level 3220[place] [address]. Influenza positive. Overall, demand related NSTEMI in the setting of influenza. We will review her echocardiogram for any cardiac dysfunction. If indeed there is any overt wall motion abnormality, consider cardiac catheterization but she states she does not want any procedures. Hence we will need to decide. Otherwise, continue her heparin drip, beta-blockers, statins and other medications. We will follow up with you. Time Spent With Patient Time: Total time managing care of this patient today ____ minutes. Progress Note: Quality Stroke Does the patient have a stroke diagnosis?: No Procedures Date of Service Date of Service: 08/19/25
[2025-08-19 11:16] LABS: PTT Heparin Drip 99.8 SEC (53-77.9)
[2025-08-19 13:03] LABS: PTT Heparin Drip 58.9 SEC (53-77.9)
--- NOTE | 2025-08-19 14:27 | MHC.CM.PN ---
Pt. not medically clear to DC, she is to have input from cardiology to determine plan.
--- NOTE | 2025-08-19 14:39 | P.PNIM_ITS ---
Subjective Subjective Date of Service: 08/19/25 Interval History: No new complaints or issues Feels better as compared to yesterday Pending echocardiography No chest pain, palpitations, dizziness, diaphoresis Review of Systems Review of Systems: Yes all other systems are reviewed and are negative Physical Exam 2 Exam: Exam: General:?Elderly female, obese, awake, alert, cooperative, in no acute distress. Vital Signs:?Afebrile. Hemodynamically stable. On 2 L nasal cannula with SpO2 in the mid 90s. HEENT:?Normocephalic, atraumatic. Mucous membranes moist. No scleral icterus. Neck:?Supple. No jugular venous distention. Cardiovascular:?Regular rate and rhythm. Normal S1/S2. Systolic murmur appreciated. No rubs or gallops. Pacemaker in situ. Respiratory:?Normal work of breathing. Bibasilar crackles present. No wheezing. Good air movement bilaterally. Abdomen:?Soft, non?distended, non?tender. Bowel sounds present. Extremities:?No cyanosis or clubbing. Trace to mild bilateral lower extremity edema. Neurologic:?Alert and oriented ?3. No focal motor or sensory deficits. Skin:?Warm and dry. No rashes or lesions. Vital Signs: Vital Signs: Last Vital Signs Temp 98.7 F 08/19/25 11:51 Pulse 66 08/19/25 11:51 Resp 20 08/19/25 11:51 BP 144/66 H 08/19/25 11:51 Pulse Ox 95 08/19/25 11:51 O2 Del Method Nasal Cannula 08/19/25 11:51 O2 Flow Rate 2 08/19/25 11:51 BMI result Body Mass Index 44.1 Objective Data Active Medications Acetaminophen (Acetaminophen 325 Mg Tablet) 650 mg PO Q6H PRN PRN Reason: Pain, Mild 1-3,fever,headache Albuterol/Ipratropium (Albuterol/Iprat 2.5/0.5mg 3 Ml Ampul.Neb) 3 ml INHALE RQ6H WHILE AWAKE PRN PRN Reason: shortness of breath/wheezing Last Admin: 08/18/25 04:52 Dose: 3 ml Documented By: JUAN A Allopurinol (Allopurinol 100 Mg Tablet) 200 mg PO DAILY NONA Last Admin: 08/19/25 08:52 Dose: 200 mg Documented By: ELVER Atenolol (Atenolol 100 Mg Tablet) 100 mg PO DAILY [facility]; Protocol Last Admin: 08/19/25 08:52 Dose: 100 mg Documented By: ELVER Atorvastatin Calcium (Atorvastatin Calcium 20 Mg Tablet) 20 mg PO BEDTIME NONA Last Admin: 08/18/25 20:40 Dose: 20 mg Documented By: ROCKY Calcium Carbonate (Calcium Carbonate 750 Mg Tab.Chew) 750 mg PO Q4H PRN PRN Reason: Heartburn Furosemide (Furosemide 20 Mg/2 Ml Vial) 20 mg IVPUSH BID@0900,1800 [facility]; Protocol Last Admin: 08/19/25 08:51 Dose: 20 mg Documented By: ELVER Guaifenesin/Dextromethorphan (Guaifenesin Dm 100/10/5 Ml 5 Ml Syrup) 5 ml PO Q6H PRN PRN Reason: Cough Last Admin: 08/18/25 20:59 Dose: 5 ml Documented By: ROCKY Heparin Sodium (Porcine) (Heparin Sodium,Porcine 5,000 Unit/Ml Vial) 4,600 unit 40 unit/kg (4600 unit) IVPUSH PROTOCOL BOLUS PRN; Protocol PRN Reason: 40 unit/kg - Heparin Protocol Heparin Sodium (Porcine) (Heparin Sodium,Porcine 5,000 Unit/Ml Vial) 9,100 unit 80 unit/kg (9100 unit) IVPUSH PROTOCOL BOLUS PRN; Protocol PRN Reason: 80 unit/kg - Heparin Protocol Last Admin: 08/19/25 01:08 Dose: 9,100 unit Documented By: RENETTA Heparin Sodium/Sodium Chloride (Heparin Sodium,Porcine/1/2ns) 25,000 unit in 250 mls @ 0 mls/hr IVCONT .Q0M NONA; Protocol Last Titration: 08/19/25 13:22 Dose: 4.78 units/kg/hr, 5.44 mls/hr Documented By: ELVER Co-signed By: JULIO C Ceftriaxone Sodium 1 gm/ (Sodium Chloride) 50 mls @ 100 mls/hr IV Q24H [facility] Last Infusion: 08/19/25 12:11 Dose: Infused Documented By: ELVER Doxycycline Hyclate 100 mg/ (Sodium Chloride) 250 mls @ 166.67 mls/hr IV Q12H [facility] Last Infusion: 08/19/25 07:21 Dose: Infused Documented By: RENETTA Levothyroxine Sodium (Levothyroxine Sodium 88 Mcg Tablet) 88 mcg PO DAILY@0600 [facility] Last Admin: 08/19/25 05:29 Dose: 88 mcg Documented By: RENETTA Loratadine (Loratadine 10 Mg Tablet) 10 mg PO DAILY [facility] Last Admin: 08/19/25 08:52 Dose: 10 mg Documented By: ELVER Magnesium Hydroxide (Milk Of Magnesia 30 Ml Oral.Susp) 30 ml PO DAILY PRN PRN Reason: Constipation Melatonin (Melatonin 3 Mg Tablet) 6 mg PO BEDTIME PRN PRN Reason: Insomnia Multivitamins/Vitamin C (Multivitamin Tablet) 1 tab PO DAILY [facility] Last Admin: 08/19/25 08:52 Dose: 1 tab Documented By: ELVER Nitroglycerin (Nitroglycerin 2 % Oint 1 Gm Packet) 0.5 inch TRANSDERMA BID@0900,1500 [facility] Last Admin: 08/19/25 08:52 Dose: 0.5 inch Documented By: ELVER Sodium Chloride (0.9 % Sodium Chloride Flush 3 Ml Syringe) 3 ml IVFLUSH QSHIFT [facility] Last Admin: 08/19/25 08:52 Dose: 3 ml Documented By: ELVER Valsartan (Valsartan 320 Mg Tablet) 320 mg PO DAILY [facility]; Protocol Last Admin: 08/19/25 08:52 Dose: 320 mg Documented By: ELVER Labs 08/18/25 06:25 08/18/25 06:25 Labs: Laboratory Results - last 24 hr 08/18/25 08/18/25 08/19/25 16:34 23:31 07:26 aPTT Heparin Protocol 53.6 D 35.0 L D > 200.0 H* D 08/19/25 08/19/25 08/19/25 09:19 11:00 12:44 aPTT Heparin Protocol 186.1 H* 99.8 H D 58.9 D Microbiology Microbiology Results: Microbiology 08/17/25 10:59 Blood Culture - Preliminary Blood - Venous No growth after 48 hours. 08/17/25 11:00 Blood Culture - Preliminary Blood - Venous No growth after 48 hours. Assessment and Plan (1) Essential hypertension: Status: Acute (2) Decompensated heart failure: Status: Acute (3) Non-ST elevation ID (NSTEMI): Status: Acute (4) Acute myocardial infarction: Status: Acute (5) S/P placement of cardiac pacemaker: Status: Acute (6) Paroxysmal atrial fibrillation: Status: Acute (7) CKD (chronic kidney disease): Status: Acute (8) Anemia: Status: Acute (9) Hypoxia: Status: Acute Plan 85-year-old female?with history of complete heart block s/p dual?chamber pacemaker, paroxysmal atrial fibrillation on Eliquis, CKD stage III, hypertension, dyslipidemia, hypothyroidism, and obesity, admitted with?acute hypoxic respiratory failure?in the setting of?Influenza A, complicated by?NSTEMI and acute decompensated heart failure. Hospital course notable for rising troponins (now downtrending), elevated BNP, pulmonary edema on CT chest, and improvement with IV diuresis and anticoagulation. Currently hemodynamically stable on the medical floor with improving respiratory status. NSTEMI Troponins peaked >3200 with downtrend; EKG nondiagnostic due to ventricular pacing. Likely type II ID in the setting of influenza and acute CHF, though primary coronary event cannot be fully excluded. No chest pain reported.? Plan: * Continue IV heparin infusion per protocol (goal total 72 hours) * Hold Eliquis while on heparin drip * Continue?atenolol 100 mg daily * Continue?atorvastatin 20 mg nightly * Start nitroglycerin patch 2%, 0.5 inch BID?(added today) * Trend troponins to continued downtrend * Telemetry monitoring * Echocardiogram to assess LV function and regional wall motion abnormalities * Cardiology following Acute Decompensated Heart Failure New diagnosis; CT chest consistent with CHF (bilateral pleural effusions, pulmonary edema). BNP markedly elevated. Clinical improvement noted with diuresis.? Plan: * Continue?IV furosemide 20 mg BID * Strict intake/output monitoring * Daily weights * Low-sodium diet * Monitor renal function and electrolytes daily * Continue nitrates as above for preload reduction * Adjust diuresis based on volume status and renal function Acute Hypoxic Respiratory Failure Likely multifactorial due to pulmonary edema and influenza. Oxygen requirements improving.? Plan: * Continue supplemental oxygen via nasal cannula, wean as tolerated * Maintain SpO2 >92% * PRN bronchodilator nebulizers for wheezing * Incentive spirometry Influenza A with Viral Sepsis (improving) Possible superimposed post viral pneumonia Confirmed Influenza A. Initial concern for pneumonia, but CT chest & physical exam favors CHF. Outside Tamiflu window.? Plan: * Supportive care * Continue empiric?ceftriaxone and doxycycline?for possible superimposed postviral pneumonia; reassess need daily * Monitor fever curve and WBC * Blood cultures negative to date Paroxysmal Atrial Fibrillation No recurrence noted during hospitalization. Rate controlled.? Plan: * Continue atenolol * Hold Eliquis while on heparin drip * Resume oral anticoagulation once heparin discontinued if no contraindications Chronic Kidney Disease (Stage III) Baseline renal function preserved; stable with diuresis.? Plan: * Daily BMP * Avoid nephrotoxins * Adjust diuretics and anticoagulation dosing as needed Hypertension Blood pressures stable.? Plan: * Continue valsartan 320 mg daily * Continue atenolol * Monitor BP closely, especially with diuresis and nitrates Hypothyroidism Stable.? Plan: * Continue levothyroxine 88 mcg daily Anemia (Chronic) Stable mild normocytic anemia without evidence of bleeding.? Plan: * Monitor CBC * No transfusion indicated at this time [employer] * VTE:?Therapeutic heparin drip * CODE STATUS:?DNR/DNI * DIET:?Cardiac / Low sodium * TELEMETRY:?Yes * OXYGEN REQUIREMENT:?2 L NC Quality Stroke Does the patient have a stroke diagnosis?: No VTE Prior VTE?: No VTE Risk Level:: Medical - moderate - high VTE Device Contraindication: N/A - Device Ordered VTE Drug Contraindication: N/A - Med Ordered
[2025-08-19] MEDS: Albuterol/Iprat 2.5/0.5MG 3 ML AMPUL.NEB INHALE (15:42)
[2025-08-19 19:50] LABS: PTT Heparin Drip 41.3 SEC (53-77.9)
[2025-08-19] MEDS: Heparin Sodium,Porcine/1/2NS 25,000 UNIT/250 ML IV.SOLN 7.72 UNIT IVCONT (20:06)
[2025-08-20] VITALS (7 sets, daily range): BP systolic 112–157; BP diastolic 56–74; PULSE 60–67; RESP 16–18; TEMP 36.3–36.6; O2SAT 95–99
[2025-08-20 07:45] LABS: PTT Heparin Drip 119.9 SEC (53-77.9)
[2025-08-20 08:34] LABS: PTT Heparin Drip 82.4 SEC (53-77.9)
[2025-08-20] MEDS: Furosemide 20 MG/2 ML VIAL IVPUSH ×2 (08:41→17:58)
[2025-08-20] MEDS: Nitroglycerin 2 % Oint 1 GM Packet 0.5 INCH TRANSDERMA ×2 (08:43→15:05)
[2025-08-20] MEDS: 0.9 % Sodium Chloride Flush 3 ML SYRINGE IVFLUSH ×3 (08:45→20:15)
--- NOTE | 2025-08-20 10:22 | P.PNIM_ITS ---
Subjective Subjective Date of Service: 08/20/25 Interval History: Patient seen examined at bedside this morning, patient waiting for transfer for catheterization, awaiting bed. At this time states that she feels well. Review of Systems Review of Systems: Yes all other systems are reviewed and are negative Physical Exam 2 Exam: Exam: General:?Elderly female, obese, awake, alert, cooperative, in no acute distress. Vital Signs:?Afebrile. Hemodynamically stable. HEENT:?Normocephalic, atraumatic. Mucous membranes moist. No scleral icterus. Neck:?Supple. No jugular venous distention. Cardiovascular:?Regular rate and rhythm. Normal S1/S2. Systolic murmur appreciated. No rubs or gallops. Pacemaker in situ. Respiratory:?Normal work of breathing. No wheezing. Abdomen:?Soft, non-distended, non-tender. Bowel sounds present. Extremities:?No cyanosis or clubbing. Trace to mild bilateral lower extremity edema. Neurologic:?Alert and oriented ?3. No focal motor or sensory deficits. Skin:?Warm and dry. No rashes or lesions. Vital Signs: Vital Signs: Last Vital Signs Temp 97.5 F 08/20/25 07:44 Pulse 60 08/20/25 07:44 Resp 16 08/20/25 07:44 BP 157/74 H 08/20/25 07:44 Pulse Ox 97 08/20/25 07:44 O2 Del Method Nasal Cannula 08/20/25 07:44 O2 Flow Rate 2 08/20/25 07:44 BMI result Body Mass Index 44.1 Objective Data Active Medications Acetaminophen (Acetaminophen 325 Mg Tablet) 650 mg PO Q6H PRN PRN Reason: Pain, Mild 1-3,fever,headache Albuterol/Ipratropium (Albuterol/Iprat 2.5/0.5mg 3 Ml Ampul.Neb) 3 ml INHALE RQ6H WHILE AWAKE PRN PRN Reason: shortness of breath/wheezing Last Admin: 08/19/25 15:42 Dose: 3 ml Documented By: FREDERIC Allopurinol (Allopurinol 100 Mg Tablet) 200 mg PO DAILY [facility] Last Admin: 08/20/25 08:42 Dose: 200 mg Documented By: ALONSO Atenolol (Atenolol 100 Mg Tablet) 100 mg PO DAILY [facility]; Protocol Last Admin: 08/20/25 08:42 Dose: 100 mg Documented By: ALONSO Atorvastatin Calcium (Atorvastatin Calcium 20 Mg Tablet) 20 mg PO BEDTIME NONA Last Admin: 08/19/25 20:08 Dose: 20 mg Documented By: RENETTA Calcium Carbonate (Calcium Carbonate 750 Mg Tab.Chew) 750 mg PO Q4H PRN PRN Reason: Heartburn Furosemide (Furosemide 20 Mg/2 Ml Vial) 20 mg IVPUSH BID@0900,1800 [facility]; Protocol Last Admin: 08/20/25 08:41 Dose: 20 mg Documented By: ALONSO Guaifenesin/Dextromethorphan (Guaifenesin Dm 100/10/5 Ml 5 Ml Syrup) 5 ml PO Q6H PRN PRN Reason: Cough Last Admin: 08/18/25 20:59 Dose: 5 ml Documented By: ROCKY Heparin Sodium (Porcine) (Heparin Sodium,Porcine 5,000 Unit/Ml Vial) 4,600 unit 40 unit/kg (4600 unit) IVPUSH PROTOCOL BOLUS PRN; Protocol PRN Reason: 40 unit/kg - Heparin Protocol Last Admin: 08/19/25 20:08 Dose: 4,600 unit Documented By: RENETTA Heparin Sodium (Porcine) (Heparin Sodium,Porcine 5,000 Unit/Ml Vial) 9,100 unit 80 unit/kg (9100 unit) IVPUSH PROTOCOL BOLUS PRN; Protocol PRN Reason: 80 unit/kg - Heparin Protocol Last Admin: 08/19/25 01:08 Dose: 9,100 unit Documented By: RENETTA Heparin Sodium/Sodium Chloride (Heparin Sodium,Porcine/1/2ns) 25,000 unit in 250 mls @ 0 mls/hr IVCONT .Q0M [facility]; Protocol Last Titration: 08/20/25 04:23 Dose: 2.78 units/kg/hr, 3.17 mls/hr Documented By: RENETTA Co-signed By: CLIFTON Ceftriaxone Sodium 1 gm/ (Sodium Chloride) 50 mls @ 100 mls/hr IV Q24H [facility] Last Infusion: 08/19/25 12:11 Dose: Infused Documented By: ELVER Doxycycline Hyclate 100 mg/ (Sodium Chloride) 250 mls @ 166.67 mls/hr IV Q12H [facility] Last Infusion: 08/20/25 08:36 Dose: 166.67 mls/hr Documented By: ALONSO Levothyroxine Sodium (Levothyroxine Sodium 88 Mcg Tablet) 88 mcg PO DAILY@0600 [facility] Last Admin: 08/20/25 06:49 Dose: 88 mcg Documented By: KELLYZEFCGisele Loratadine (Loratadine 10 Mg Tablet) 10 mg PO DAILY [facility] Last Admin: 08/20/25 08:42 Dose: 10 mg Documented By: ALONSO Magnesium Hydroxide (Milk Of Magnesia 30 Ml Oral.Susp) 30 ml PO DAILY PRN PRN Reason: Constipation Melatonin (Melatonin 3 Mg Tablet) 6 mg PO BEDTIME PRN PRN Reason: Insomnia Multivitamins/Vitamin C (Multivitamin Tablet) 1 tab PO DAILY [facility] Last Admin: 08/20/25 08:42 Dose: 1 tab Documented By: ALONSO Nitroglycerin (Nitroglycerin 2 % Oint 1 Gm Packet) 0.5 inch TRANSDERMA BID@0900,1500 [facility] Last Admin: 08/20/25 08:43 Dose: 0.5 inch Documented By: ALONSO Sodium Chloride (0.9 % Sodium Chloride Flush 3 Ml Syringe) 3 ml IVFLUSH QSHIFT [facility] Last Admin: 08/20/25 08:45 Dose: 3 ml Documented By: ALONSO Valsartan (Valsartan 320 Mg Tablet) 320 mg PO DAILY [facility]; Protocol Last Admin: 08/20/25 08:42 Dose: 320 mg Documented By: ALONSO Labs 08/18/25 06:25 08/18/25 06:25 Labs: Laboratory Results - last 24 hr 08/19/25 08/19/25 08/19/25 11:00 12:44 19:28 Hold Purple Top SEE NOTE aPTT Heparin Protocol 99.8 H D 58.9 D 41.3 L D 08/20/25 08/20/25 02:13 03:54 Hold Purple Top aPTT Heparin Protocol 119.9 H* D 82.4 H D Microbiology Microbiology Results: Microbiology 08/17/25 10:59 Blood Culture - Preliminary Blood - Venous No growth after 48 hours. 08/17/25 11:00 Blood Culture - Preliminary Blood - Venous No growth after 48 hours. Assessment and Plan (1) Essential hypertension: Status: Acute (2) Decompensated heart failure: Status: Acute (3) Non-ST elevation NV (NSTEMI): Status: Acute (4) Acute myocardial infarction: Status: Acute (5) S/P placement of cardiac pacemaker: Status: Acute (6) Paroxysmal atrial fibrillation: Status: Acute (7) CKD (chronic kidney disease): Status: Acute (8) Anemia: Status: Acute (9) Hypoxia: Status: Acute Plan 85-year-old female?with history of complete heart block s/p dual?chamber pacemaker, paroxysmal atrial fibrillation on Eliquis, CKD stage III, hypertension, dyslipidemia, hypothyroidism, and obesity, admitted with?acute hypoxic respiratory failure?in the setting of?Influenza A, complicated by?NSTEMI and acute decompensated heart failure. Hospital course notable for rising troponins (now downtrending), elevated BNP, pulmonary edema on CT chest, and improvement with IV diuresis and anticoagulation. Currently hemodynamically stable on the medical floor with improving respiratory status. NSTEMI Troponins peaked >3200 with downtrend; EKG nondiagnostic due to ventricular pacing. Likely type II NV in the setting of influenza and acute CHF, though primary coronary event cannot be fully excluded. No chest pain reported.? Plan: * Continue IV heparin infusion per protocol * Hold Eliquis while on heparin drip * Continue?atenolol 100 mg daily * Continue?atorvastatin 20 mg nightly * Start nitroglycerin patch 2%, 0.5 inch BID?(added today) * Trend troponins to continued downtrend * Telemetry monitoring * Echocardiogram ordered * Cardiology following, plans on transfer for cath Acute Decompensated Heart Failure, improved New diagnosis; CT chest consistent with CHF (bilateral pleural effusions, pulmonary edema). BNP markedly elevated. Clinical improvement noted with diuresis.? Plan: * Continue?IV furosemide 20 mg BID * Strict intake/output monitoring * Daily weights * Low-sodium diet * Monitor renal function and electrolytes daily * Continue nitrates as above for preload reduction * Adjust diuresis based on volume status and renal function Acute Hypoxic Respiratory Failure, improved Likely multifactorial due to pulmonary edema and influenza. Oxygen requirements improving.? Plan: * Continue supplemental oxygen via nasal cannula, wean as tolerated * Maintain SpO2 >92% * PRN bronchodilator nebulizers for wheezing * Incentive spirometry Influenza A with Viral Sepsis (improving) Possible superimposed post viral pneumonia Confirmed Influenza A. Initial concern for pneumonia, but CT chest & physical exam favors CHF. Outside Tamiflu window.? Plan: * Supportive care * Continue empiric?ceftriaxone and doxycycline?for possible superimposed postviral pneumonia; reassess need daily * Monitor fever curve and WBC * Blood cultures negative to date Paroxysmal Atrial Fibrillation No recurrence noted during hospitalization. Rate controlled.? Plan: * Continue atenolol and heparin drip * Resume oral anticoagulation once heparin discontinued if no contraindications Chronic Kidney Disease (Stage III) Baseline renal function preserved; stable with diuresis.? Plan: * Daily BMP * Avoid nephrotoxins * Adjust diuretics and anticoagulation dosing as needed Hypertension Blood pressures stable.? Plan: * Continue valsartan 320 mg daily * Continue atenolol * Monitor BP closely, especially with diuresis and nitrates Hypothyroidism Stable.? Plan: * Continue levothyroxine 88 mcg daily Anemia (Chronic) Stable mild normocytic anemia without evidence of bleeding.? Plan: * Monitor CBC * No transfusion indicated at this time [employer] * VTE:?Therapeutic heparin drip * CODE STATUS:?DNR/DNI * DIET:?Cardiac / Low sodium * TELEMETRY:?Yes Total time managing care of this patient today: 35 minutes. Quality Stroke Does the patient have a stroke diagnosis?: No VTE Prior VTE?: No VTE Risk Level:: Medical - moderate - high VTE Device Contraindication: N/A - Device Ordered VTE Drug Contraindication: N/A - Med Ordered
--- NOTE | 2025-08-20 11:05 | PM.PNCARD ---
Subjective Subjective Date of Service: 08/20/25 Interval history: She states that she feels okay. No clear-cut angina or other overt cardiac symptoms. Improving from the flu. Review of Systems Review of Systems Yes all other systems are reviewed and are negative Constitutional: Reports as per HPI and Reports no additional constitutional complaints Eyes: Reports as per HPI and Denies no additional eye complaints Denies system reviewed and no additional complaints, except as documented and Reports as per HPI Cardiovascular: Reports as per HPI, Reports no additional cardiovascular complaints, Denies acrocyanosis, Denies cool extremities, Denies chest pain, Denies leg edema, Denies lightheadedness, Denies palpitations and Reports dyspnea Respiratory: Reports as per HPI, Denies no additional respiratory complaints and Reports dyspnea Gastrointestinal: Reports as per HPI and Denies no additional gastrointestinal complaints Genitourinary: Reports as per HPI Musculoskeletal: Reports no additional musculoskeletal complaints and Reports as per HPI Skin/Breast: Reports system reviewed and no additional complaints, except as docu Reports system reviewed and no additional complaints, except as documented and Reports as per HPI Psychiatric: Reports no additional psychiatric complaints and Reports as per HPI Endocrine: Reports no additional endocrine complaints, Reports as per HPI and Denies palpitations Hematologic/Lymphatic: Reports no additional hematologic/lymphatic complaints and Reports as per HPI Allergic/Immunologic: Reports no additional allergic/immunologic complaints and Reports as per HPI Physical Exam Vital Signs: Last Vital Signs Temp 97.5 F 08/20/25 07:44 Pulse 60 08/20/25 07:44 Resp 16 08/20/25 07:44 BP 157/74 H 08/20/25 07:44 Pulse Ox 97 08/20/25 07:44 O2 Del Method Nasal Cannula 08/20/25 07:44 O2 Flow Rate 2 08/20/25 07:44 BMI result Body Mass Index 44.1 Const General: comfortable and no acute distress Orientation/consciousness: patient oriented x3 HEENT Other: Unremarkable Head: Yes normal to inspection Neck Neck: Yes normal visual inspection Chest Chest palpation & inspection: normal inspection of the chest Resp Auscultation: wheezes and diminished lung sounds Cardio Palpation: normal PMI Heart sounds: S1 normal heart sound present, S2 normal heart sound present, no gallops, no murmurs and no rubs GI Palpation (GI): Soft to palpation Back/Spine/Pelvis Other: unremarkable Skin General skin exam: no rashes or lesions noted Neuro General: patient oriented x3 Extrem General: Yes normal to inspection Psych Mental Status: mental status grossly normal Objective Labs and Meds 08/18/25 06:25 08/18/25 06:25 Lab results: Laboratory Results - last 24 hr 08/19/25 08/19/25 08/19/25 11:00 12:44 19:28 Hold Purple Top SEE NOTE aPTT Heparin Protocol 99.8 H D 58.9 D 41.3 L D 08/20/25 08/20/25 02:13 03:54 Hold Purple Top aPTT Heparin Protocol 119.9 H* D 82.4 H D Progress Note: A&P Assessment and plan (1) Non-ST elevation NV (NSTEMI): Status: Acute Plan Peak troponin level 3220[place] [address]. Influenza positive. Echocardiogram with LVEF of 44%. In 2021, LVEF is 60-65%. Overall, demand related NSTEMI in the setting of influenza. Less likely primary event. We discussed about further plan including diagnostic catheterization. We will contact [facility] to see if there is any bed available for the same. In the interim, continue IV heparin drip, beta-blockers, statins and aspirin. Discussed with family at the bedside. Time Spent With Patient Time: Total time managing care of this patient today ____ minutes. Progress Note: Quality Stroke Does the patient have a stroke diagnosis?: No Procedures Date of Service Date of Service: 08/20/25
[2025-08-20 11:43] LABS: PTT Heparin Drip 35.4 SEC (53-77.9)
[2025-08-20 20:01] LABS: PTT Heparin Drip 199.1 SEC (53-77.9)
--- NOTE | 2025-08-20 20:59 | P.TS_ITS ---
Transfer Discharge Sum: Prov Provider Date of admission: 08/17/25 14:31 Primary care physician: Shirlene Clark MD Consults: 08/17/25 15:21 Consult to Cardiology Routine Consulting Provider: [facility] Reason for consultation: NSTEMI, CHF Has provider been notified: No Anticipated date of transfer: 08/20/25 Receiving physician/facility: [facility] DS: Diagnosis Discharge Diagnosis (1) Non-ST elevation ME (NSTEMI): Status: Acute (2) Acute myocardial infarction: Status: Acute (3) Decompensated heart failure: Status: Acute (4) Essential hypertension: Status: Acute (5) S/P placement of cardiac pacemaker: Status: Acute (6) Paroxysmal atrial fibrillation: Status: Acute (7) CKD (chronic kidney disease): Status: Acute (8) Anemia: Status: Acute (9) Hypoxia: Status: Acute Transfer Discharge Sum: Med Medications Active and Home Medications: Home Medications vitamins A,C,[id number]-vfha-uwfvkd 4,296 mcg-226 mg-90 mg capsule (PreserVision AREDS) 1 cap PO BID 11/13/21 [History Confirmed 08/17/25] [id number] 8 mg-folic 400 mcg-K 50 mcg-lutein 300 mcg tablet (Centrum Silver Women) 1 tab PO DAILY 06/28/22 [History Confirmed 08/17/25] atenolol 100 mg tablet 100 mg PO DAILY #90 tabs 12/12/24 [Rx Confirmed 08/17/25] apixaban 5 mg tablet (Eliquis) 5 mg PO BID #180 tabs 12/28/24 [Rx Confirmed 08/17/25] levothyroxine 88 mcg tablet 88 mcg PO QAM #90 tabs 03/20/25 [Rx Confirmed 08/17/25] valsartan 320 mg tablet 320 mg PO DAILY #90 tabs 05/06/25 [Rx Confirmed 08/17/25] allopurinol 100 mg tablet 200 mg (2 x 100 mg) PO DAILY 3 months #180 tabs 06/11/25 [Rx Confirmed 08/17/25] simvastatin 40 mg tablet 40 mg PO QPM #90 tabs 06/11/25 [Rx Confirmed 08/17/25] furosemide 40 mg tablet 40 mg PO DAILY #90 tabs 06/28/25 [Rx Confirmed 08/17/25] loratadine 10 mg tablet (Claritin) 10 mg PO DAILY 07/22/25 [History Confirmed 08/17/25] cholecalciferol (vitamin D3) 50 mcg (2,000 unit) tablet (Vitamin D3) 50 mcg PO DAILY 08/17/25 [History Confirmed 08/17/25] flaxseed oil 1,000 mg capsule 1,000 mg PO DAILY 08/17/25 [History Confirmed 08/17/25] Active Medications Acetaminophen (Acetaminophen 325 Mg Tablet) 650 mg PO Q6H PRN PRN Reason: Pain, Mild 1-3,fever,headache Albuterol/Ipratropium (Albuterol/Iprat 2.5/0.5mg 3 Ml Ampul.Neb) 3 ml INHALE RQ6H WHILE AWAKE PRN PRN Reason: shortness of breath/wheezing Last Admin: 08/19/25 15:42 Dose: 3 ml Allopurinol (Allopurinol 100 Mg Tablet) 200 mg PO DAILY NONA Last Admin: 08/20/25 08:42 Dose: 200 mg Aspirin (Aspirin 81 Mg Tab.Chew) 81 mg PO DAILY NONA Atenolol (Atenolol 100 Mg Tablet) 100 mg PO DAILY NONA; Protocol Last Admin: 08/20/25 08:42 Dose: 100 mg Atorvastatin Calcium (Atorvastatin Calcium 20 Mg Tablet) 20 mg PO BEDTIME NONA Last Admin: 08/20/25 20:13 Dose: 20 mg Calcium Carbonate (Calcium Carbonate 750 Mg Tab.Chew) 750 mg PO Q4H PRN PRN Reason: Heartburn Doxycycline Monohydrate (Doxycycline Monohydrate 100 Mg Capsule) 100 mg PO Q12H NONA Last Admin: 08/20/25 20:13 Dose: 100 mg Furosemide (Furosemide 20 Mg/2 Ml Vial) 20 mg IVPUSH BID@0900,1800 [facility]; Protocol Last Admin: 08/20/25 17:58 Dose: 20 mg Guaifenesin/Dextromethorphan (Guaifenesin Dm 100/10/5 Ml 5 Ml Syrup) 5 ml PO Q6H PRN PRN Reason: Cough Last Admin: 08/18/25 20:59 Dose: 5 ml Heparin Sodium (Porcine) (Heparin Sodium,Porcine 5,000 Unit/Ml Vial) 4,600 unit 40 unit/kg (4600 unit) IVPUSH PROTOCOL BOLUS PRN; Protocol PRN Reason: 40 unit/kg - Heparin Protocol Last Admin: 08/19/25 20:08 Dose: 4,600 unit Heparin Sodium (Porcine) (Heparin Sodium,Porcine 5,000 Unit/Ml Vial) 9,100 unit 80 unit/kg (9100 unit) IVPUSH PROTOCOL BOLUS PRN; Protocol PRN Reason: 80 unit/kg - Heparin Protocol Last Admin: 08/20/25 12:03 Dose: 9,100 unit Heparin Sodium/Sodium Chloride (Heparin Sodium,Porcine/1/2ns) 25,000 unit in 250 mls @ 0 mls/hr IVCONT .Q0M [facility]; Protocol Last Titration: 08/20/25 20:06 Dose: 0 units/kg/hr, 0 mls/hr Ceftriaxone Sodium 1 gm/ (Sodium Chloride) 50 mls @ 100 mls/hr IV Q24H [facility] Last Infusion: 08/20/25 13:15 Dose: Infused Levothyroxine Sodium (Levothyroxine Sodium 88 Mcg Tablet) 88 mcg PO DAILY@0600 [facility] Last Admin: 08/20/25 06:49 Dose: 88 mcg Loratadine (Loratadine 10 Mg Tablet) 10 mg PO DAILY [facility] Last Admin: 08/20/25 08:42 Dose: 10 mg Magnesium Hydroxide (Milk Of Magnesia 30 Ml Oral.Susp) 30 ml PO DAILY PRN PRN Reason: Constipation Melatonin (Melatonin 3 Mg Tablet) 6 mg PO BEDTIME PRN PRN Reason: Insomnia Multivitamins/Vitamin C (Multivitamin Tablet) 1 tab PO DAILY [facility] Last Admin: 08/20/25 08:42 Dose: 1 tab Nitroglycerin (Nitroglycerin 2 % Oint 1 Gm Packet) 0.5 inch TRANSDERMA BID@0900,1500 [facility] Last Admin: 08/20/25 15:05 Dose: 0.5 inch Sodium Chloride (0.9 % Sodium Chloride Flush 3 Ml Syringe) 3 ml IVFLUSH QSHIFT [facility] Last Admin: 08/20/25 20:15 Dose: 3 ml Valsartan (Valsartan 320 Mg Tablet) 320 mg PO DAILY [facility]; Protocol Last Admin: 08/20/25 08:42 Dose: 320 mg Transfer Discharge Sum: Hosp Hospital Course Hospital course: 85-year-old female with history of complete heart block s/p dual-chamber pacemaker, paroxysmal atrial fibrillation on Eliquis, CKD stage III, hypertension, dyslipidemia, hypothyroidism, and obesity, admitted with acute hypoxic respiratory failure in the setting of Influenza A, complicated by NSTEMI and acute decompensated heart failure. Hospital course notable for rising troponins (now downtrending), elevated BNP, pulmonary edema on CT chest, and improvement with IV diuresis and anticoagulation. Currently hemodynamically stable on the medical floor with improving respiratory status. NSTEMI Troponins peaked >3200 with downtrend; EKG nondiagnostic due to ventricular pacing. Likely type II ME in the setting of influenza and acute CHF, though primary coronary event cannot be fully excluded. No chest pain reported. Plan: IV heparin infusion per protocol Hold Eliquis while on heparin drip atenolol 100 mg daily atorvastatin 20 mg nightly Nitroglycerin patch 2%, 0.5 inch BID added today Trend troponins to continued downtrend Telemetry monitoring Echocardiogram completed Cardiology following, plans on transfer for cath Acute Decompensated Heart Failure, improved New diagnosis; CT chest consistent with CHF (bilateral pleural effusions, pulmonary edema). BNP markedly elevated. Clinical improvement noted with diuresis. Plan: IV furosemide 20 mg BID Strict intake/output monitoring Daily weights Low-sodium diet Monitor renal function and electrolytes daily Continue nitrates as above for preload reduction Adjust diuresis based on volume status and renal function Acute Hypoxic Respiratory Failure, improved Likely multifactorial due to pulmonary edema and influenza. Oxygen requirements improving. Plan: Continue supplemental oxygen via nasal cannula, wean as tolerated Maintain SpO2 >92% PRN bronchodilator nebulizers for wheezing Incentive spirometry Influenza A with Viral Sepsis (improving) Possible superimposed post viral pneumonia Confirmed Influenza A. Initial concern for pneumonia, but CT chest & physical exam favors CHF. Outside Tamiflu window. Plan: Supportive care Continue empiric ceftriaxone and doxycycline for possible superimposed postviral pneumonia; reassess need daily Monitor fever curve and WBC Blood cultures negative to date Paroxysmal Atrial Fibrillation No recurrence noted during hospitalization. Rate controlled. Plan: Atenolol and heparin drip Resume oral anticoagulation once heparin discontinued if no contraindications Chronic Kidney Disease (Stage III) Baseline renal function preserved; stable with diuresis. Plan: Daily BMP Avoid nephrotoxins Adjust diuretics and anticoagulation dosing as needed Hypertension Blood pressures stable. Plan: Continue valsartan 320 mg daily Continue atenolol Monitor BP closely, especially with diuresis and nitrates Hypothyroidism Stable. Plan:levothyroxine 88 mcg daily Anemia (Chronic) Stable mild normocytic anemia without evidence of bleeding. Plan: Monitor CBC No transfusion indicated during hospitalization Time Spent with Patient Time attestation: Total time managing care of this patient today ____ minutes. Total time spent: Less than 30 minutes Physical Exam Exam: Exam: The patient was seen and evaluated by the day-time attending physician General: Elderly female, obese, awake, alert, cooperative, in no acute distress. Vital Signs: Afebrile. Hemodynamically stable. HEENT: Normocephalic, atraumatic. Mucous membranes moist. No scleral icterus. Neck: Supple. No jugular venous distention. Cardiovascular: Regular rate and rhythm. Normal S1/S2. Systolic murmur appreciated. No rubs or gallops. Pacemaker in situ. Respiratory: Normal work of breathing. No wheezing. Abdomen: Soft, non-distended, non-tender. Bowel sounds present. Extremities: No cyanosis or clubbing. Trace to mild bilateral lower extremity edema. Neurologic: Alert and oriented ?3. No focal motor or sensory deficits. Skin: Warm and dry. No rashes or lesions. Vital Signs: Vital Signs: Last Vital Signs Temp 97.5 F 08/20/25 19:35 Pulse 66 08/20/25 19:35 Resp 18 08/20/25 19:35 BP 139/65 08/20/25 19:35 Pulse Ox 95 08/20/25 19:35 O2 Del Method Room Air 08/20/25 19:35 O2 Flow Rate 2 08/20/25 07:44 BMI result Body Mass Index 44.1 Quality Measure Queries AMI Clinical Trial Participant: No
--- NOTE | 2025-08-20 21:45 | PC.NURSE ---
report called to [facility] 7. Patient will be transferred via [facility]. Daughter Heydi updated
[2025-08-20 21:47] LABS: PTT Heparin Drip 119.4 SEC (53-77.9)
== END 2025-08-20 22:06 | disposition short-term general hospital (02) | DRG 871 ==
LOC: HO.ED 14:19 → HO.EDOVER 16:57 → HO.IMC 19:27
PROVIDERS: Family Medicine; Hospitalist; Internal Medicine; Physician Assistant; Physician Assistant Medical; Admitting Provider Physician Assistant Medical; Emergency Provider Emergency Medicine; PCP Internal Medicine; Visit Provider Student in an Organized Health Care Education/Training Program
DX: A41.89 Other specified sepsis (principal); I21.A1 Myocardial infarction type 2; J96.01 Acute respiratory failure with hypoxia; J10.00 Influenza due to other identified influenza virus with unspecified type of pneumonia; E87.21 Acute metabolic acidosis; I44.2 Atrioventricular block, complete; I13.0 Hypertensive heart and chronic kidney disease with heart failure and stage 1 through stage 4 chronic kidney disease, or unspecified chronic kidney disease; E03.9 Hypothyroidism, unspecified; I50.9 Heart failure, unspecified; D63.1 Anemia in chronic kidney disease; I48.0 Paroxysmal atrial fibrillation; N18.30 Chronic kidney disease, stage 3 unspecified; Z66 Do not resuscitate; Z95.0 Presence of cardiac pacemaker; Z79.890 Hormone replacement therapy; Z79.899 Other long term (current) drug therapy
CPT/HCPCS: 36415; 71045; 71250; 80048; 80053; 80061; 81001; 82803; 83605; 83735; 83880; 84484; 85025; 85027; 85610; 85730; 87040; 87637; 93005; 93306; 94640; 99285; J0131; J0696; J1271; J1644; J1938; Q9957

== ENCOUNTER → 2025-08-17 10:42 | Outpatient (BNV) | payer MEDICARE, SELFPAY | PROVIDERS: Emergency Provider Emergency Medicine; PCP Internal Medicine; Visit Provider Specialist | DX: Z03.89 Encounter for observation for other suspected diseases and conditions ruled out (principal); R06.02 Shortness of breath | CPT/HCPCS: 71045; 71250 ==

== ENCOUNTER → 2025-08-17 10:55 | Outpatient (BNV) | payer MEDICARE, SELFPAY | PROVIDERS: Admitting Provider Physician Assistant Medical; Emergency Provider Emergency Medicine; PCP Internal Medicine; Visit Provider Internal Medicine Cardiovascular Disease | DX: R94.31 Abnormal electrocardiogram [ECG] [EKG] (principal); Z95.0 Presence of cardiac pacemaker | CPT/HCPCS: 93010 ==

== ENCOUNTER 2025-08-17 14:31 | Outpatient (BNV) | payer MEDICARE, SELFPAY | END 2025-08-19 07:00 | PROVIDERS: Admitting Provider Physician Assistant Medical; Emergency Provider Emergency Medicine; PCP Internal Medicine; Visit Provider Internal Medicine | DX: I50.9 Heart failure, unspecified (principal); I21.4 Non-ST elevation (NSTEMI) myocardial infarction | CPT/HCPCS: 93306 ==

== ENCOUNTER → 2025-08-17 14:31 | Outpatient (BNV) | payer MEDICARE, SELFPAY | PROVIDERS: Admitting Provider Physician Assistant Medical; Emergency Provider Emergency Medicine; PCP Internal Medicine; Visit Provider Physician Assistant Medical | DX: I21.4 Non-ST elevation (NSTEMI) myocardial infarction (principal); J96.01 Acute respiratory failure with hypoxia; I50.9 Heart failure, unspecified; I48.0 Paroxysmal atrial fibrillation; N18.30 Chronic kidney disease, stage 3 unspecified; I12.9 Hypertensive chronic kidney disease with stage 1 through stage 4 chronic kidney disease, or unspecified chronic kidney disease; D64.9 Anemia, unspecified; Z95.0 Presence of cardiac pacemaker | CPT/HCPCS: 99238; 99499 ==

== ENCOUNTER → 2025-08-17 14:31 | Outpatient (BNV) | payer MEDICARE, SELFPAY | PROVIDERS: Admitting Provider Physician Assistant Medical; Emergency Provider Emergency Medicine; PCP Internal Medicine; Visit Provider Internal Medicine Cardiovascular Disease | DX: I21.4 Non-ST elevation (NSTEMI) myocardial infarction (principal) | CPT/HCPCS: 99233 ==